=== PATIENT | male | born 1955 | race Caucasian/White ===

== ENCOUNTER 2020-05-09 10:40 | Inpatient (IN) | payer OTHER ==
[2020-05-09 10:49] VITALS: BMI 20.7
--- NOTE | 2020-05-09 11:09 | PDOC ---
Rapid Medical Evaluation Time Seen by Provider: 05/09/20 10:46 Medical Evaluation: Allergies Allergy/AdvReac Type Severity Reaction Status Date / Time No Known Allergies Allergy Verified 05/09/20 10:45 05/09/20 10:48 CC: worsening sob and prod cough, hx lung cancer , + smoker Exam: hypoxic , dyspneic Plan: labs, ekg, cxr, o2 Discharge Disposition - Diagnosis Shortness of breath - Referrals - Patient Instructions - Post Discharge Activity
--- NOTE | 2020-05-09 11:14 | PDOC ---
History of Present Illness - General Chief Complaint: Shortness of Breath Stated Complaint: SOB / COUGH Time Seen by Provider: 05/09/20 10:46 History Source: Patient Exam Limitations: No Limitations - History of Present Illness Initial Comments: 05/09/20 11:14 Harrison Ding is a 65M with PMH lung cancer, HTN, FL s/p 4x stenting on ASA/Brillinta, presenting with 3 days of SOB and cough. Patient diagnosed with lung cancer ~6 years ago, is s/p radiation therapy without chemotherapy. 4 months ago had FL, 4x stented at [facility] and dicharged home on ASA/Brillinta. 4 weeks ago fell from bed and came to ED for forehead lac and eval. Last few days patient has been having increased WOB and non-productive cough, not on home oxygen, breathing has been normal prior to this. Denies fever, chills, ANDREWS, vision changes, chest pain, abdominal pain. Had nausea and vomiting, denies urinary symptoms or diarrhea. NKDA PMH HTN, HLD, lung CA Spokes 2-3 cigarettes per day and quit last month. Denies alcohol/drug use. PMD Kristy Contact: Fatoumata () [phone] Past History - Medical History Allergies/Adverse Reactions: Allergies Allergy/AdvReac Type Severity Reaction Status Date / Time No Known Allergies Allergy Verified 05/09/20 10:45 Cancer: Yes (lung) COPD: No - Psycho-Social/Smoking History Smoking History: Current every day smoker Have you smoked in the past 12 months: Yes Number of Cigarettes Smoked Daily: 5 Information on smoking cessation initiated: Yes - Substance Abuse Hx (Audit-C & DAST Scrn) How often the patient has a drink containing alcohol: Never Score: In Men: 4 or > Positive; In Women: 3 or > Positive: 0 Screen Result (Pos requires Nsg. Audit-10AR): Negative In the last yr the pt used illegal drug/Rx for NonMed reason: No Score: Yes response is considered Positive: 0 Screen Result (Positive result requires Nsg. DAST-10): Negative Review of Systems - Review of Systems Able to Perform ROS?: Yes Constitutional: Yes: Chills, Loss of Appetite. No: Fever HEENTM: No: Eye Pain, Blurred Vision, Nose Pain, Throat Pain, Throat Swelling, Mouth Pain, Dental Problems Respiratory: Yes: Cough, Orthopnea, Shortness of Breath, SOB at Rest, Productive cough. No: SOB with Exertion, Wheezing Cardiac (ROS): No: Chest Pain, Edema, Irregular Heart Rate, Lightheadedness, Palpitations, Chest Tightness ABD/GI: Yes: Nausea, Poor Appetite, Poor Fluid Intake, Vomiting. No: Constipated, Diarrhea, Rectal Bleeding : No: Symptoms Reported Musculoskeletal: No: Symptoms Reported Integumentary: No: Symptoms Reported Neurological: No: Headache, Numbness, Paresthesia, Unsteady Gait Endocrine: No: Symptoms Reported Hematologic/Lymphatic: No: Symptoms Reported All Other Systems: Reviewed and Negative *Physical Exam - Vital Signs Last Vital Signs Temp Pulse Resp BP Pulse Ox 98.9 F 93 H 24 H 150/73 96 05/09/20 10:45 05/09/20 10:45 05/09/20 10:45 05/09/20 10:45 05/09/20 10:45 - Physical Exam General Appearance: Yes: Nourished, Appropriately Dressed, Mild Distress, Thin HEENT: positive: EOMI, [place], Normal Voice, Symmetrical, Pharynx Normal, Hearing Grossly Normal. negative: Scleral Icterus (R), Scleral Icterus (L), Muffled/Radha rse voice, Pharyngeal Erythema, Tonsillar Exudate, Tonsillar Erythema Neck: positive: Trachea midline, Normal Thyroid, Supple. negative: Tender, Rigid, Lymphadenopathy (R), Lymphadenopathy (L), Tender lateral, Tender midline Respiratory/Chest: positive: Normal Breath Sounds, Labored Respiration, Decreased Breath Sounds. negative: Chest Tender, Lungs Clear (decreased breath sounds to RUL and LLL), Respiratory Distress, Accessory Muscle Use, Crackles, Rales, Rhonchi, Wheezing Cardiovascular: positive: Regular Rhythm, Tachycardia Gastrointestinal/Abdominal: positive: Normal Bowel Sounds, Flat, Soft. negative: Tender, Organomegaly, Pulsatile Mass, Guarding, Rebound Musculoskeletal: positive: Normal Inspection. negative: CVA Tenderness, Vertebral Tenderness Extremity: positive: Normal Capillary Refill, Normal Inspection, Normal Range of Motion, Pelvis Stable. negative: Tender, Pedal Edema Integumentary: positive: Normal Color, Dry, Warm. 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 COVID vs. HF vs. lung CA recurrence. Afebrile, normotensive, satting 96% on RA but labored respirations and decreased breath sounds on exam. CXR shows RUL PNA and large pleural effusion to L lung, confirmed by bedside US of lungs. Evaluating broadly with sepsis orders and CT chest non-con for characterization of effusion. COVID-19 testing ordered given SOB and hypoxia. Giving IVF, cefepime, vancomycin, and azithromycin for HCAP and covid-19 coverage. 05/09/20 13:07 BC and lactic acid sent. 05/09/20 13:52 ECG notable for sinus tachycardia and RBBB, Qtc 518, no priors for comparison. Labs notable for: WBC 16.4 D-dimer 2132 lactic 1.8 05/09/20 14:14 CT read shows large L sided pleural effusion and likely cancerous changes to R lung. IR consulted Dr. Martinez, will place pigtail later today. Will admit to tele under Dr. Wagner. 05/09/20 16:56 Discussed case with Gail Gama, accepted to tele under Dr. Wagner. Dr. Wagner in ED, aware of patient. Discharge - Discharge Information Problems reviewed: Yes Clinical Impression/Diagnosis: Shortness of breath, Pleural effusion Pneumonia Qualifiers: Pneumonia type: due to unspecified organism Laterality: right Lung location: upper lobe of lung Qualified Code(s): J18.9 - Pneumonia, unspecified organism Condition: Stable - Admission Yes - Follow up/Referral Referrals: Irvin Wagner MD [Primary Care Provider] - - Patient Discharge Instructions - Post Discharge Activity
[2020-05-09] MEDS ORDERED: SODIUM CHLORIDE 1,701 ML IV ONE (11:30)
[2020-05-09] MEDS ORDERED: CEFEPIME HCL/D5W 2 GM/50 ML BAG IVPB ONE (11:33)
[2020-05-09] MEDS ORDERED: VANCOMYCIN 1 GM in D5W (PRE-DOCKED) 1,000 MG/250 ML IVPB ONE (11:33)
[2020-05-09] MEDS ORDERED: AZITHROMYCIN IVPB 500 MG in DEXTROSE 5%-WATER - 250 ML IVPB ONE (11:35)
[2020-05-09] MEDS ORDERED: AZITHROMYCIN IVPB 500 MG/250 ML BAG IVPB ONE (11:51)
[2020-05-09] MEDS ORDERED: VANCOMYCIN 1 GRAM (PRE-DOCKED) 1,000 MG/250 ML BAG IVPB ONE (11:51)
[2020-05-09] MEDS ORDERED: CEFEPIME 2 GM/100 ML BAG IVPB ONE (11:51)
[2020-05-09 11:53] LABS: BASO % 0.3 % (0-2.0); EOS % 0.1 % (0-4.5); LYMPH % 5.9 % (8-40); MCH 32.8 pg (25.7-33.7); MCHC 33.4 g/dl (32.0-35.9); MEAN CELL VOLUME 98.3 fl (80-96); MONO % 8.7 % (3.8-10.2); PLATELET COUNT 383 K/MM3 (134-434); RBC 4.58 M/mm3 (4.00-5.60); WHITE BLOOD COUNT 16.4 K/mm3 (4.0-10.0)
[2020-05-09 11:55] LABS: INR 1.23 (0.83-1.09); PROTHROMBIN TIME (PATIENT) 14.5 SEC (9.7-13.0)
[2020-05-09 11:57] LABS: ACTIVATED PTT 32.9 SECONDS (25.2-36.5)
[2020-05-09] MEDS: ALBUTEROL SO4 2.5/IPRATROPIUM 0.5 INH SOL 3 ML VIAL.NEB. NEB SCH ×2 (12:04→12:24)
--- NOTE | 2020-05-09 12:09 | PDOC ---
Attending Attestation - Resident Resident Name: GabbyaroldoLei - ED Attending Attestation I have performed the following: I have examined & evaluated the patient, The case was reviewed & discussed with the resident, I agree w/resident's findings & plan - HPI HPI: 05/09/20 12:05 65y/o M h/o COPD, lung ca s/p radiation tx (no chemo), CAD s/p [place] 4mo ago, HTN, quit smoking 1 month ago p/w 3-4 days of progressive cough productive of thick white sputum, progressive and severe SOB with THOMSON just walking around his home. no f/c/night sweats. no chest pain. - Physicial Exam PE: 05/09/20 12:08 afebrile, tachycardia, tachypnea, o2 96% on room air and 99% on 2L alert, thin, tachypneic no jvd heart regular tachy decreased BS L base and mid-lung field with effusion on POCUS. distant breath sounds R mid lung field abd benign no edema/calf ttp neuro nl - Critical Care Time Total Critical Care Time: 40 Critical Care Statement: The care of this patient involved high complexity decision making to prevent further life threatening deterioration of the patient's condition and/or to evaluate & treat vital organ system(s) failure or risk of failure. - Medical Decision Making 05/09/20 12:09 65y/o M HTN/CAD, COPD, lung ca with progressive cough for 4d, tachypnea/tachycardia here with progressive SOB/THOMSON. concern for infectious etiology, also high risk for PE. sepsis protocol initiated ekg, cxr, cta chest iv fluids, iv abx admit 05/09/20 14:14 labs with leukocytosis, lactate normal cxr and ct chest confirm large L effusion. improved respiratory status on 2L, still slight tachypnea. admit to tele, IR consulted for drain. Heart Score/ECG Review #1 ECG reviewed & interpreted by me at: 13:47 General ECG Interpretation: Sinus Rhythm (tachy at 112), Normal Intervals (RBBB wth qrs 138, qtc 518), No acute ischemic changes Discharge - Discharge Information Problems reviewed: Yes Clinical Impression/Diagnosis: Shortness of breath, Pleural effusion Pneumonia Qualifiers: Pneumonia type: due to unspecified organism Laterality: right Lung location: upper lobe of lung Qualified Code(s): J18.9 - Pneumonia, unspecified organism Condition: Stable - Follow up/Referral Referrals: Irvin Wagner MD [Primary Care Provider] - - Patient Discharge Instructions - Post Discharge Activity
[2020-05-09] MEDS ORDERED: ALBUTEROL SO4 2.5/IPRATROPIUM 0.5 INH SOL 3 ML VIAL.NEB. NEB ONE (12:18)
[2020-05-09 12:29] LABS: ALBUMIN 3.2 g/dl (3.4-5.0); ALK PHOS 136 U/L (45-117); ANION GAP 8 MMOL/L (8-16); BILIRUBIN,TOTAL 1.2 mg/dL (0.2-1); BLOOD UREA NITROGEN 11.2 mg/dL (7-18); CALCIUM 9.2 mg/dL (8.5-10.1); CHLORIDE 101 mmol/L (98-107); CO2 26 mmol/L (21-32); CREATININE 1.1 mg/dL (0.55-1.3); GLUCOSE,RANDOM 129 mg/dL (74-106); MAGNESIUM 2.2 mg/dL (1.8-2.4); SGOT/AST 39 U/L (15-37); SODIUM 135 mmol/L (136-145); TOT PROT 8.4 g/dl (6.4-8.2)
[2020-05-09 12:32] LABS: SGPT/ALT 34 U/L (13-61)
[2020-05-09 15:53] LABS: EPI CELLS 6 /uL (0-25.1); HYALINE CASTS 1 /uL (0-3.1); URINE APPEARANCE CLEAR; URINE BACTERIA 25 /uL (0-1359); URINE BILIRUBIN NEGATIVE (NEGATIVE); URINE COLOR DK YELLOW; URINE GLUCOSE (UA) NEGATIVE (NEGATIVE); URINE KETONE NEGATIVE (NEGATIVE); URINE LEUK ESTERASE TRACE (NEGATIVE); URINE NITRITE NEGATIVE (NEGATIVE); URINE PROTEIN TRACE (NEGATIVE); URINE RBC 6 /uL (0-23.9); URINE WBC 19 /uL (0-25.8)
[2020-05-09] MEDS ORDERED: FUROSEMIDE 40 MG/4 ML INJECTABLE VIAL IVPUSH ONE (17:49)
--- NOTE | 2020-05-09 17:51 | HP ---
Admitting History and Physical - Primary Care Physician PCP: Irvin Wagner - Admission Chief Complaint: SOB History of Present Illness: Harrison Ding is a 65M with PMH lung cancer, HTN, [place] s/p 4x stenting on ASA/Brillinta, presenting with 3 days of SOB and cough. Patient diagnosed with lung cancer ~6 years ago, is s/p radiation therapy without chemotherapy. 4 months ago had AL, 4x stented at [facility] and dicharged home on ASA/Brillinta. 4 weeks ago fell from bed and came to ED for forehead lac and eval. Last few days patient has been having increased WOB and non-productive cough, not on home oxygen, breathing has been normal prior to this. Denies fever, chills, ANDREWS, vision changes, chest pain, abdominal pain. Had nausea and vomiting, denies urinary symptoms or diarrhea. History Source: Patient, Medical Record Limitations to Obtaining History: No Limitations - Smoking History Smoking history: Current every day smoker Have you smoked in the past 12 months: Yes Aproximately how many cigarettes per day: 5 Home Medications - Allergies Allergies/Adverse Reactions: Allergies Allergy/AdvReac Type Severity Reaction Status Date / Time No Known Allergies Allergy Verified 05/09/20 10:45 Review of Systems - Review of Systems Constitutional: reports: Weakness Eyes: reports: No Symptoms HENT: reports: No Symptoms Neck: reports: No Symptoms Cardiovascular: reports: Shortness of Breath Respiratory: reports: SOB Gastrointestinal: reports: No Symptoms Genitourinary: reports: No Symptoms Breasts: reports: No Symptoms Reported Musculoskeletal: reports: No Symptoms Integumentary: reports: No Symptoms Neurological: reports: No Symptoms Endocrine: reports: No Symptoms Hematology/Lymphatic: reports: No Symptoms Psychiatric: reports: No Symptoms Physical Examination Vital Signs: Vital Signs Temperature 99.1 F 05/09/20 11:30 Pulse Rate 103 H 05/09/20 16:00 Respiratory Rate 31 H 05/09/20 16:00 Blood Pressure 122/77 05/09/20 16:00 O2 Sat by Pulse Oximetry (%) 95 05/09/20 16:00 Constitutional: Yes: Calm, Cachectic, Mild Distress (SOB) Cardiovascular: Yes: Tachycardia Respiratory: Yes: Diminished (LL), On Nasal O2, Tachypnea Gastrointestinal: Yes: Normal Bowel Sounds, Soft Renal/: Yes: WNL Musculoskeletal: Yes: Muscle Weakness Extremities: Yes: WNL Edema: No Peripheral Pulses WNL: Yes Neurological: Yes: Alert, Oriented Psychiatric: Yes: Alert, Oriented Labs: CBC, BMP 05/09/20 11:10 05/09/20 10:58 Imaging - Results Chest X-ray: Report Reviewed Cat Scan: Report Reviewed Problem List - Problems (1) Pleural effusion Assessment/Plan: -Furosemide 40 mg IVP once -IR consult for pleurx -Pulmonary and cardiology consult -O2 to keep SpO2>90% Problems reviewed: Yes Code(s): J90 - PLEURAL EFFUSION, NOT ELSEWHERE CLASSIFIED (2) Pneumonia Code(s): J18.9 - PNEUMONIA, UNSPECIFIED ORGANISM Qualifiers: Pneumonia type: due to unspecified organism Laterality: right Lung location: upper lobe of lung Qualified Code(s): J18.9 - Pneumonia, unspecified organism (3) Shortness of breath Problems reviewed: Yes Code(s): R06.02 - SHORTNESS OF BREATH (4) CAD (coronary artery disease) Assessment/Plan: -Resume Brilinta -Resume statin -Cardiology consult Problems reviewed: Yes Code(s): I25.10 - ATHSCL HEART DISEASE OF [place] CORONARY ARTERY W/O ANG PCTRS (5) History of lung cancer Assessment/Plan: -CT chest reviewed -Scarring vs mass in the hilum Problems reviewed: Yes Code(s): Z85.118 - PERSONAL HISTORY OF MALIGNANT NEOPLASM OF BRONCHUS AND LUNG
[2020-05-09 19:19] LABS: BF WBC & OTHER NUCLEATED CELLS 521 /mm3
[2020-05-09 20:10] LABS: BODY FLUID MACROPHAGES 21 %; BODYL FLD EOSINOPHIL 5 %
[2020-05-09] MEDS: TICAGRELOR 90 MG TABLET PO SCH (22:32)
[2020-05-10 06:18] LABS: BASO % 0.7 % (0-2.0); EOS % 0.9 % (0-4.5); HEMATOCRIT 39.3 % (35.4-49); HEMOGLOBIN 13.3 GM/dL (11.7-16.9); LYMPH % 14.1 % (8-40); MCHC 33.9 g/dl (32.0-35.9); MEAN CELL VOLUME 97.3 fl (80-96); MEAN PLT VOLUME 7.7 fl (7.5-11.1); MONO % 11.6 % (3.8-10.2); NEUT % 72.7 % (42.8-82.8); PLATELET COUNT 321 K/MM3 (134-434); RBC 4.04 M/mm3 (4.00-5.60); RDW 12.9 % (11.9-15.9); WHITE BLOOD COUNT 13.9 K/mm3 (4.0-10.0)
[2020-05-10] MEDS ORDERED: ALBUTEROL SO4 HFA INHALER IH PRN (06:20)
[2020-05-10 06:41] LABS: ALBUMIN 2.5 g/dl (3.4-5.0); BILIRUBIN,TOTAL 1.2 mg/dL (0.2-1); BLOOD UREA NITROGEN 10.6 mg/dL (7-18); CALCIUM 8.7 mg/dL (8.5-10.1); POTASSIUM 4.5 mmol/L (3.5-5.1); TOT PROT 6.6 g/dl (6.4-8.2)
--- NOTE | 2020-05-10 09:13 | CON.CARD ---
Consult Consult Specialty:: Cardiology Referred by:: Kristy Reason for Consultation:: SOB, effusion - History of Present Illness Chief Complaint: SOB History of Present Illness: 65 year old male with a PMH of COPD smoker, lung cancer s/p radiation 2 years ago, PVD, CAD admitted to [facility] on 10/17/19 for inferior STEMI, under wentPCI w/RANJIT x2 placed in RCA and 11/12/19 for staged PCI for the mid-LAD. He now presents with 3 days of SOB, cough without fever or chills. No chest pain, orthopnea, PND or edema. CT scan done in the ER showed a large left pleural effusion. Underwent thoracentesis. Echo 11/16/19 Regional wall motion abnormalities as described below with overall mildly reduced left ventricular systolic function. Normal right ventricular function. Left Atrium: Normal left atrial size. Left Ventricle: Normal left ventricular size. Inferolateral wall akinesis. Basal inferior wall akinesis. Mildly decreased left ventricular ejection fraction. Right Atrium: Normal right atrial size. Right Ventricle: Normal right ventricular size. Normal right ventricular function. Aortic Valve: Fibrocalcific disease of the aortic valve without stenosis. Mild aortic valve regurgitation. Mitral Valve: Mitral annular calcification. Mild mitral valve regurgitation. Tricuspid Valve: Normal tricuspid valve. Pulmonic Valve: Pulmonic valve not adequately visualized. Arteries: Normal sized aortic root. Pericardium/Pleura: Minimal pericardial effusion. Hemodynamics: Doppler pattern suggests prolonged relaxation and normal left atrial pressure (8 - 14mmHg). Estimated right atrial pressure is Normal (0-5 mmHg). Insufficient tricuspid regurgitation to quantify pulmonary artery pressure. MD Estimated Parameters Ejection Fraction: 45.0 % NST 08/26/19: Normal stress test Normal LVEF No ischemic changes [place] Min 66 max 162 HR 89\IVCD 1run of Vtach Ectopic atrial rhythm Rare PACs - History Source History Provided By: Patient, Medical Record - Smoking History Smoking history: Current every day smoker Have you smoked in the past 12 months: Yes Aproximately how many cigarettes per day: 5 Home Medications - Allergies Allergies/Adverse Reactions: Allergies Allergy/AdvReac Type Severity Reaction Status Date / Time No Known Allergies Allergy Verified 05/10/20 09:01 - Home Medications Home Medications: Ambulatory Orders Albuterol Sulfate Inhaler - [Ventolin HFA Inhaler -] 1 puff PO PRN 05/09/20 Aspirin [ASA -] 81 mg PO DAILY 05/09/20 Atorvastatin Ca [Lipitor] 80 mg PO HS 05/09/20 Metoprolol Succinate 50 mg PO DAILY 05/09/20 Ticagrelor [Brilinta] 60 mg PO DAILY 05/09/20 Vital Signs: Vital Signs Temperature 97.2 F L 05/10/20 05:00 Pulse Rate 100 H 05/10/20 05:00 Respiratory Rate 20 05/10/20 05:00 Blood Pressure 100/60 05/10/20 05:00 O2 Sat by Pulse Oximetry (%) 99 05/09/20 21:00 Constitutional: Yes: No Distress, Calm Eyes: Yes: Conjunctiva Clear, EOM Intact HENT: Yes: Atraumatic, Normocephalic Neck: Yes: Trachea Midline Respiratory: Yes: Diminished (left side), Dullness (left side) Gastrointestinal: Yes: Normal Bowel Sounds, Soft Cardiovascular: Yes: Regular Rate and Rhythm JVD: Yes Carotid Bruit: No PMI: Non-Displaced Heart Sounds: Yes: S1, S2 Musculoskeletal: Yes: WNL Extremities: Yes: WNL Edema: No Peripheral Pulses WNL: Yes - Other Data Labs, Other Data: CBC, BMP 05/10/20 05:50 05/10/20 06:00 INR, PTT INR 1.23 (0.83-1.09) H 05/09/20 11:10 Troponin, BNP 05/09/20 10:58 Troponin I < 0.02 Troponin, BNP 05/09/20 10:58 Troponin I < 0.02 Imaging - Results X-ray: Report Reviewed Cat Scan: Report Reviewed EKG: Report Reviewed Assessment/Plan 65 year old male with a PMH of COPD smoker, lung cancer s/p radiation 2 years ago, PVD, CAD admitted to [facility] on 10/17/19 for inferior STEMI, underwentPCI w/RANJIT x2 placed in RCA and 11/12/19 for staged PCI for the mid-LAD. He now presents with 3 days of SOB, cough without fever or chills. No chest pain, orthopnea, PND or edema. CT scan done in the ER showed a large left pleural effusion. Underwent thoracentesis. Plan: -left sided effusion is suspicious for malignancy, follow results of thoracentesis. -pulmonary evaluation -echo, will adjust medications accordingly. -check BNP -elevated WBC and D-dimer concerning for COVID, swab pending. -continue asa and brilinta for one year. Continue beta stephanie and statin. Will add acei if bp tolerates. Has not tolerated lisinopril in the past, and his bp is soft at present.
[2020-05-10] MEDS ORDERED: PT OWN MED DRAWER 7, Y5N ONE ×2 (09:24→21:11)
[2020-05-10] MEDS: TICAGRELOR 90 MG TABLET PO SCH ×2 (09:31→21:13)
[2020-05-10] MEDS: ASPIRIN COATED 81 MG TABLET.EC PO SCH (09:31)
--- NOTE | 2020-05-10 09:49 | PN ---
Progress Note, Physician - Current Medication List Current Medications: Active Medications Acetaminophen (Tylenol -) 650 mg PO Q4H PRN PRN Reason: PAIN Albuterol Sulfate (Ventolin Hfa Inhaler -) 1 puff IH Q4H PRN PRN Reason: SHORT OF BREATH/WHEEZING Aspirin (Ecotrin -) 81 mg PO DAILY [facility] Last Admin: 05/10/20 09:31 Dose: 81 mg Documented by: Atorvastatin Calcium (Lipitor -) 80 mg PO [facility] Metoprolol Succinate (Toprol Xl -) 50 mg PO DAILY [facility] Last Admin: 05/10/20 09:31 Dose: 50 mg Documented by: Ticagrelor (Brilinta -) 90 mg PO BID [facility] Last Admin: 05/10/20 09:31 Dose: 90 mg Documented by: - Objective Vital Signs: Vital Signs Temperature 98.9 F 05/10/20 09:41 Pulse Rate 99 H 05/10/20 09:41 Respiratory Rate 20 05/10/20 09:41 Blood Pressure 103/62 05/10/20 09:41 O2 Sat by Pulse Oximetry (%) 99 05/09/20 21:00 Cardiovascular: Yes: S1, S2 Respiratory: Yes: Diminished, On Nasal O2, Rhonchi Gastrointestinal: Yes: Normal Bowel Sounds, Soft Edema: No Labs: CBC, BMP 05/10/20 05:50 05/10/20 06:00 INR, PTT INR 1.23 (0.83-1.09) H 05/09/20 11:10 Assessment/Plan Problems (1) Pleural effusion Assessment/Plan: -Furosemide 40 mg IVP once -IR consult for pleurx--Placed -Maybe malignant -await results -Pulmonary and cardiology consult appreciated -O2 to keep SpO2>90% Problems reviewed: Yes Code(s): J90 - PLEURAL EFFUSION, NOT ELSEWHERE CLASSIFIED (2) Pneumonia -Abx -ID consult Code(s): J18.9 - PNEUMONIA, UNSPECIFIED ORGANISM Qualifiers: Pneumonia type: due to unspecified organism Laterality: right Lung location: upper lobe of lung Qualified Code(s): J18.9 - Pneumonia, unspecified organism (3) Shortness of breath Problems reviewed: Yes Code(s): R06.02 - SHORTNESS OF BREATH (4) CAD (coronary artery disease) Assessment/Plan: -Resume Brilinta -Resume statin -Cardiology consult Problems reviewed: Yes Code(s): I25.10 - ATHSCL HEART DISEASE OF [place] CORONARY ARTERY W/O ANG PCTRS (5) History of lung cancer Assessment/Plan: -CT chest reviewed -Scarring vs mass in the hilum Problems reviewed: Yes Code(s): Z85.118 - PERSONAL HISTORY OF MALIGNANT NEOPLASM OF BRONCHUS AND LUNG
--- NOTE | 2020-05-10 10:38 | EKG ---
Test Reason : Blood Pressure : / mmHG Vent. Rate : 112 BPM Atrial Rate : 112 BPM P-R Int : 134 ms QRS Dur : 138 ms QT Int : 380 ms P-R-T Axes : 021 049 004 degrees QTc Int : 518 ms SINUS TACHYCARDIA RIGHT BUNDLE BRANCH BLOCK POSSIBLE INFERIOR INFARCT , AGE UNDETERMINED ABNORMAL ECG NO PREVIOUS ECGS AVAILABLE Confirmed by Simon Small MD ([id number]) on 05/10/2020 10:37:15 AM Referred By: Confirmed By:Simon Small MD
--- NOTE | 2020-05-10 12:26 | PN ---
Progress Note (short form) - Note Progress Note: PULMONARY CONSULTATION DICTATED 05/10/20 IMP DYSPNEA/HYPOXEMIA LARGE LEFT PLEURAL EFFUSION R/O MALIGNANT H/O LUNG CA S/P RT RUL INFILTRATE ? PNEUMONIA,? COVID COPD ASHD S/P STENTS MEDIASTINAL ADENOPATHY PLAN SUPPLEMENTAL O2 ABX INHALED BRONCHODILATORS MONITOR CHEST TUBE DRAINAGE CHECK PLEURAL FLUID CHEMISTRIES,CYTOLOGY,CULTURES COVID PCR PENDING DR CASTRO Problem List - Problems (1) COPD (chronic obstructive pulmonary disease) Code(s): J44.9 - CHRONIC OBSTRUCTIVE PULMONARY DISEASE, UNSPECIFIED (2) CAD (coronary artery disease) Code(s): I25.10 - ATHSCL HEART DISEASE OF [place] CORONARY ARTERY W/O ANG PCTRS (3) History of lung cancer Code(s): Z85.118 - PERSONAL HISTORY OF MALIGNANT NEOPLASM OF BRONCHUS AND LUNG (4) Pleural effusion Code(s): J90 - PLEURAL EFFUSION, NOT ELSEWHERE CLASSIFIED (5) Pneumonia Code(s): J18.9 - PNEUMONIA, UNSPECIFIED ORGANISM Qualifiers: Pneumonia type: due to unspecified organism Laterality: right Lung location: upper lobe of lung Qualified Code(s): J18.9 - Pneumonia, unspecified organism (6) Shortness of breath Code(s): R06.02 - SHORTNESS OF BREATH
--- NOTE | 2020-05-10 13:14 | PN ---
Progress Note (short form) - Note Progress Note: ID consult dictated imp/reccd 65 yo man with history of lung cancer s/p RT (right lung) 6 years ago, recent AR in 10/2019-s/p 4 stents, history of COPD developed vomiting and diarrhea about a week ago, self resolved then developed worsening SOB and worsening cough now with large left pleural effusion- s/p chest tube placement yesterday and RUL infiltrate (new) no fevers s/p vanco/cefepime/zith in ED yesterday +10 pound weight loss RUL infiltrate -?aspiration left pleural effusion- s/p chest tube, ?malignant recent AR with stents prolonged qtc- greater then .5 check cultures, add urinary antigens zosyn to cover for possible aspiration pleural fluid cultures and cytology covid pcr pending patient reports difficulty swallowing- consider swallowing evaluation Problem List - Problems (1) Pneumonia Code(s): J18.9 - PNEUMONIA, UNSPECIFIED ORGANISM Qualifiers: Pneumonia type: due to unspecified organism Laterality: right Lung location: upper lobe of lung Qualified Code(s): J18.9 - Pneumonia, unspecified organism (2) Pleural effusion Code(s): J90 - PLEURAL EFFUSION, NOT ELSEWHERE CLASSIFIED (3) CAD (coronary artery disease) Code(s): I25.10 - ATHSCL HEART DISEASE OF [place] CORONARY ARTERY W/O ANG PCTRS (4) COPD (chronic obstructive pulmonary disease) Code(s): J44.9 - CHRONIC OBSTRUCTIVE PULMONARY DISEASE, UNSPECIFIED (5) History of lung cancer Code(s): Z85.118 - PERSONAL HISTORY OF MALIGNANT NEOPLASM OF BRONCHUS AND LUNG
--- NOTE | 2020-05-10 13:48 | ECHO ---
Name: GIANA, KAHLIL Exam:Adult Echocardiogram Study Date: 05/10/2020 11:07 AM Age: 65 yrs Reason For Study: Arrhythmia Height: 65 in Weight: 125 lb BSA: 1.6 m2 MMode/2D Measurements & Calculations RVDd: 3.2 cm Ao root diam: 3.6 cm IVSd: 0.81 cm LA dimension: 2.5 cm LVIDd: 4.7 cm ACS: 1.4 cm LVIDs: 3.8 cm LVPWd: 0.82 cm EDV(Teich): 103.4 ml LVOT diam: 1.9 cm ESV(Teich): 61.1 ml LVLd ap4: 7.7 cm SV(MOD-sp4): 58.0 ml EDV(MOD-sp4): 118.0 ml LVLs ap4: 6.5 cm ESV(MOD-sp4): 60.0 ml LAV (MOD-bp): 54.0 ml TAPSE: 1.7 cm RV S Dagoberto: 10.9 cm/sec Doppler Measurements & Calculations MV E max dagoberto: 77.9 cm/sec Ao V2 max: 177.8 cm/sec MV A max dagoberto: 115.2 cm/sec Ao max P.6 mmHg MV E/A: 0.68 Ao V2 mean: 125.4 cm/sec MV dec time: 0.17 sec Ao mean P.0 mmHg Ao V2 VTI: 27.4 cm ELISHA(I,D): 2.5 cm2 AI P1/2t: 405.1 msec ELISHA(V,D): 2.0 cm2 AI max dagoberto: 330.1 cm/sec LV V1 max P.5 mmHg AI max P.6 mmHg LV V1 mean P.0 mmHg AI dec slope: 238.6 cm/sec2 LV V1 max: 117.4 cm/sec LV V1 mean: 81.3 cm/sec LV V1 VTI: 23.2 cm SV(LVOT): 68.6 ml PA V2 max: 80.1 cm/sec PA max P.6 mmHg PA acc slope: 901.2 cm/sec2 PA acc time: 0.07 sec Med Peak E' Dagoberto: 4.6 cm/sec PA pr(Accel): 45.7 mmHg Med E/e': 17.0 Lat Peak E' Dagoberto: 6.1 cm/sec Lat E/e': 12.7 Tech Comments TDS. Patient very thin and scanned sitting up. Procedure A complete two-dimensional transthoracic echocardiogram was performed (2D, M-mode, Doppler and color flow Doppler). The patient was in normal sinus rhythm during the exam. Left Ventricle The left ventricle is normal in size. Left ventricular systolic function is mildly reduced. Ejection Fraction = 45%. E/A reversal consistent with but not diagnostic of poor LV compliance. There is inferior wall akinesis. Right Ventricle The right ventricle is normal in size and function. Atria Normal left and right atrial size and function. Mitral Valve There is mild mitral annular calcification. There is mild mitral regurgitation. Tricuspid Valve The tricuspid valve is normal in structure and function. There is Trace to mild tricuspid regurgitati on. There was insufficient TR detected to calculate RV systolic pressure. Aortic Valve There is mild aortic valve thickening. Moderate aortic regurgitation. Pulmonic Valve The pulmonic valve is normal in structure and function. Great Vessels The aortic root is normal size. Pericardium/Pleura There is no pericardial effusion. There is no pleural effusion. Interpretation Summary The left ventricle is normal in size. There is inferior wall akinesis. Left ventricular systolic function is mildly reduced. Ejection Fraction = 45%. There is mild mitral annular calcification. There is mild mitral regurgitation. There is Trace to mild tricuspid regurgitation. There is mild aortic valve thickening. Moderate aortic regurgitation. MD Simon Small 05/10/2020 01:47 PM
--- NOTE | 2020-05-10 13:58 | CONS ---
DATE OF CONSULTATION: 05/10/2020 REFERRING PHYSICIAN: Johana Navarrete MD HISTORY: The patient is a 65-year-old male with past medical history of lung cancer status post RT 6 years ago, never treated with chemo or surgery; ASHD status post [place] 4 months ago; status post stents x4 at [facility], discharged on aspirin and Brilinta; peripheral vascular disease; COPD; longstanding history of tobacco use, quit approximately 1 month ago, admitted to [facility] with 4-day history of increasing shortness of breath. Patient apparently 4 weeks ago fell from his bed, and he came into the emergency room for a forehead laceration, evaluation, and discharged home in stable condition. Apparently for the past few days he has increasing shortness of breath, nonproductive cough, and dyspnea at rest. He denies any fevers or chills, no hemoptysis. Patient presented in the emergency room with the above. In the ER he was noted on CAT scan to have a large left pleural effusion, right upper lobe ground-glass infiltrate. Chest tube was inserted by Interventional Radiology, and patient was transferred to medical floor for further management. Patient denies any weight loss, denies sweats, denies any hemoptysis, denies any chest pains or palpitations. PAST MEDICAL HISTORY: Again includes COPD, history of lung cancer status post RT; ASHD, status post [place], status post stents x4; peripheral vascular disease. SOCIAL HISTORY: History of tobacco use, quit a month ago. No occupational exposures. MEDICATIONS: Current medications include Tylenol, albuterol, Toprol, Lipitor, Ecotrin, Brilinta. REVIEW OF SYSTEMS: Positive dyspnea, positive cough. No chest pain, no palpitation. No fever, no chills. No hemoptysis. PHYSICAL EXAMINATION: General: The patient is a thin male, awake, alert, in no acute distress. Vital Signs: He is currently afebrile. Blood pressure is 103/62. Respiratory rate is 20. O2 saturation is 99% on 3 L nasal cannula. HEENT: Normocephalic, atraumatic. Neck: Supple. Heart: Regular, S1, S2. Chest: A few scattered rhonchi, right greater than left. Abdomen: Soft. Bowel sounds are positive. Extremities: No cyanosis, edema. LABORATORY: WBC is 13.9, hemoglobin 15.3, hematocrit 39.3, and a platelet count of 321,000. BUN is 10, creatinine 1.0. Troponin less than 0.2. Albumin 2.5. D- dimer is 2132, which is nonspecific. Chest CT again noted earlier a large left pleural effusion, pretracheal adenopathy. There is a consolidation of right upper lobe with associated air bronchograms. IMPRESSION: Dyspnea, hypoxemia secondary to multiple factors: 1. Large left pleural effusion, likely malignant. 2. History of lung cancer status post radiation therapy. 3. Right upper lobe infiltrate, questionable community-acquired pneumonia, questionable COVID. 4. Chronic obstructive pulmonary disease. 5. Arteriosclerotic heart disease status post myocardial infarction, status post stents. 6. Mediastinal adenopathy, malignant versus reactive. PLAN: Supplemental O2, antibiotic therapy, inhaled bronchodilators, monitor chest tube drainage, check pleural fluid chemistries, cytology of the cultures. COVID PCR pending. Further recommendations pending results of pleural fluid studies. VALERIANO CASTRO M.D. [id number] [email or web address]
[2020-05-10] MEDS ORDERED: DEXTROSE 5%-WATER - 50 ML IVPB ONE ×2 (14:35→17:27)
[2020-05-10] MEDS ORDERED: PIPERACILLIN/TAZOBACTAM 3.375 GM VIAL IVPB ONE ×2 (14:35→17:27)
[2020-05-10] MEDS: PIPERACILLIN/TAZOB 3.375 GM 3.375 GM in DEXTROSE 5%-WATER - 50 ML IVPB SCH ×2 (14:43→17:36)
--- NOTE | 2020-05-10 15:39 | CONS ---
DATE OF CONSULTATION: DATE OF DICTATION: 05/10/2020 HISTORY: This is a 65-year-old man with a history of lung cancer. This was diagnosed about 6 years ago. At that time he reports he had radiation to his right lung. Most recently, he reports in October he had a heart attack. He had an AR. He was hospitalized at [facility] and ultimately had 4 stents placed. He reports around April 15 he fell out of bed, sustained a laceration that would not stop bleeding as he is on aspirin and Brilinta. He was seen at [facility] and had to have the forehead wound sutured. This last week, he noted that he had worsening cough and worsening shortness of breath. Every time he coughed, he could not catch his breath. He has had no fevers. It has been a dry cough. He has not been able to eat. He has lost 10 pounds. He had vomiting, he says, with nausea and diarrhea about a week ago that stopped. He came to the ER with these complaints. He was found to have a large left pleural effusion and a right upper lobe consolidation, and he had IR placement of a chest tube, and he is draining a large amount of pleural fluid from his left lung. He reports feeling better. During my entire interview with him, and exam, he never coughed. PAST MEDICAL HISTORY: Notable for the lung cancer. He has a history of hypertension and coronary artery disease status post recent AR. SOCIAL HISTORY: He is an active smoker. He stopped smoking 2 weeks ago. He lives with his . He is originally from [place]. 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 He has 6 children. PAST SURGICAL HISTORY: He denies any surgery. ALLERGIES: He has no known drug allergies. He has not been hospitalized since the stents were placed. REVIEW OF SYSTEMS: There is no history of any tuberculosis. His nausea, vomiting, and diarrhea have resolved. He reports no COVID contacts, and he has had no fever. PHYSICAL EXAMINATION: General: He is a thin in no acute distress. Vital Signs: His temperature is 98.9. Pulse is 99, blood pressure 103/62. Respiratory rate is 20. He is saturating 99%. HEENT: He is normocephalic. His eyes are anicteric. He has no thrush, but very poor dentition. Respiratory: His lungs have diminished breath sounds at the left base. His chest tube is draining bloody serous fluid. There is no evidence of any pus in the chest tube. Abdomen: Soft, nontender. Extremities: Without edema. LABORATORY: White count on admission was 16.4. Repeat is 13.9. Hemoglobin 13.3. Platelets are 321. His D-dimer was 2132. BUN and creatinine are normal. He has a total bilirubin of 1.2 with AST of 39, alkaline phosphatase of 111. Albumin is 2.5. Urinalysis is negative. Pleural fluid has 521 white cells, 28% polys, 46% lymphocytes, and COVID PCR is pending. Blood cultures are pending. Urine culture is negative. Pleural fluid cultures are pending. Preliminary on the Gram stain is unremarkable. He had a CT of his chest that confirms the large left pleural effusion, and there is an area of scarring at the right hilum, and there is emphysema, and he has this consolidation of his right upper lobe with an associated air bronchogram. SUMMARY: This is a 65-year-old man with history of lung cancer, who now has a right upper lobe infiltrate in the setting of vomiting, suspect aspiration. He has a left pleural effusion status post chest tube, concern for malignancy. Recent AR with stents, on Brilinta and aspirin. Prolonged QTc which is greater than 0.5. He received vancomycin, cefepime, and Zithromax in the ER. I would check his cultures, add urinary antigens. Would hold further Zithromax given the prolonged QTc and the clinical improvement. Would treat him with Zosyn to cover for possible aspiration. Pleural fluid cultures and cytology, COVID PCR which is pending. Further recommendations to follow. DEACON TODD M.D. [id number]
[2020-05-10] MEDS: ATORVASTATIN CA 80 MG TABLET (FP) PO SCH (21:13)
[2020-05-11] MEDS ORDERED: PIPERACILLIN/TAZOBACTAM 3.375 GM VIAL IVPB ONE ×3 (01:21→16:57)
[2020-05-11] MEDS ORDERED: DEXTROSE 5%-WATER - 50 ML IVPB ONE ×3 (01:22→16:57)
[2020-05-11] MEDS: PIPERACILLIN/TAZOB 3.375 GM 3.375 GM in DEXTROSE 5%-WATER - 50 ML IVPB SCH ×3 (01:24→17:21)
--- NOTE | 2020-05-11 07:25 | PN ---
Progress Note, Physician History of Present Illness: pulmonary alert,feeling better,less dyspneic,chest tube drainage 150cc - Current Medication List Current Medications: Active Medications Acetaminophen (Tylenol -) 650 mg PO Q4H PRN PRN Reason: PAIN Albuterol Sulfate (Ventolin Hfa Inhaler -) 1 puff IH Q4H PRN PRN Reason: SHORT OF BREATH/WHEEZING Aspirin (Ecotrin -) 81 mg PO DAILY [facility] Last Admin: 05/10/20 09:31 Dose: 81 mg Documented by: Atorvastatin Calcium (Lipitor -) 80 mg PO HS [facility] Last Admin: 05/10/20 21:13 Dose: 80 mg Documented by: Piperacillin Sod/Tazobactam (Sod 3.375 gm/ Dextrose) 50 mls @ 100 mls/hr IVPB Q8H-IV [facility]; Protocol Last Admin: 05/11/20 01:24 Dose: 100 mls/hr Documented by: Metoprolol Succinate (Toprol Xl -) 50 mg PO DAILY [facility] Last Admin: 05/10/20 09:31 Dose: 50 mg Documented by: Ticagrelor (Brilinta -) 90 mg PO BID [facility] Last Admin: 05/10/20 21:13 Dose: 90 mg Documented by: - Objective Vital Signs: Vital Signs Temperature 97.7 F 05/11/20 05:49 Pulse Rate 94 H 05/11/20 05:49 Respiratory Rate 18 05/11/20 05:49 Blood Pressure 105/57 L 05/11/20 05:49 O2 Sat by Pulse Oximetry (%) 96 05/10/20 21:00 Constitutional: Yes: Calm, Thin Eyes: Yes: WNL HENT: Yes: WNL Neck: Yes: WNL, Lymphadenopathy Cardiovascular: Yes: Pulse Irregular, S1 Respiratory: Yes: Rales, Rhonchi (few crackles and rhonchi on r,diminished bs on left) Gastrointestinal: Yes: Normal Bowel Sounds, Soft Extremities: Yes: WNL Edema: No Labs: Problem List - Problems (1) COPD (chronic obstructive pulmonary disease) Code(s): J44.9 - CHRONIC OBSTRUCTIVE PULMONARY DISEASE, UNSPECIFIED (2) CAD (coronary artery disease) Code(s): I25.10 - ATHSCL HEART DISEASE OF [place] CORONARY ARTERY W/O ANG PCTRS (3) History of lung cancer Code(s): Z85.118 - PERSONAL HISTORY OF MALIGNANT NEOPLASM OF BRONCHUS AND LUNG (4) Pleural effusion Code(s): J90 - PLEURAL EFFUSION, NOT ELSEWHERE CLASSIFIED (5) Pneumonia Code(s): J18.9 - PNEUMONIA, UNSPECIFIED ORGANISM Qualifiers: Pneumonia type: due to unspecified organism Laterality: right Lung location: upper lobe of lung Qualified Code(s): J18.9 - Pneumonia, unspecified organism (6) Shortness of breath Code(s): R06.02 - SHORTNESS OF BREATH Assessment/Plan IMP DYSPNEA/HYPOXEMIA LARGE LEFT PLEURAL EFFUSION R/O MALIGNANT H/O LUNG CA S/P RT RUL INFILTRATE ? PNEUMONIA, COPD ASHD S/P STENTS MEDIASTINAL ADENOPATHY PLAN SUPPLEMENTAL O2 ABX PER ID INHALED BRONCHODILATORS MONITOR CHEST TUBE DRAINAGE CHECK PLEURAL FLUID CHEMISTRIES,CYTOLOGY,CULTURES pending COVID PCR NEGATIVE DR CASTRO Problem List - Problems (1) COPD (chronic obstructive pulmonary disease) Code(s): J44.9 - CHRONIC OBSTRUCTIVE PULMONARY DISEASE, UNSPECIFIED (2) CAD (coronary artery disease) Code(s): I25.10 - ATHSCL HEART DISEASE OF [place] CORONARY ARTERY W/O ANG PCTRS (3) History of lung cancer Code(s): Z85.118 - PERSONAL HISTORY OF MALIGNANT NEOPLASM OF BRONCHUS AND LUNG (4) Pleural effusion Code(s): J90 - PLEURAL EFFUSION, NOT ELSEWHERE CLASSIFIED (5) Pneumonia Code(s): J18.9 - PNEUMONIA, UNSPECIFIED ORGANISM Qualifiers: Pneumonia type: due to unspecified organism Laterality: right Lung location: upper lobe of lung Qualified Code(s): J18.9 - Pneumonia, unspecified organism (6) Shortness of breath Code(s): R06.02 - SHORTNESS OF BREATH p
--- NOTE | 2020-05-11 08:37 | PN ---
Progress Note, Physician - Current Medication List Current Medications: Active Medications Acetaminophen (Tylenol -) 650 mg PO Q4H PRN PRN Reason: PAIN Albuterol Sulfate (Ventolin Hfa Inhaler -) 1 puff IH Q4H PRN PRN Reason: SHORT OF BREATH/WHEEZING Aspirin (Ecotrin -) 81 mg PO DAILY [facility] Last Admin: 05/10/20 09:31 Dose: 81 mg Documented by: Atorvastatin Calcium (Lipitor -) 80 mg PO HS [facility] Last Admin: 05/10/20 21:13 Dose: 80 mg Documented by: Piperacillin Sod/Tazobactam (Sod 3.375 gm/ Dextrose) 50 mls @ 100 mls/hr IVPB Q8H-IV [facility]; Protocol Last Admin: 05/11/20 01:24 Dose: 100 mls/hr Documented by: Metoprolol Succinate (Toprol Xl -) 50 mg PO DAILY [facility] Last Admin: 05/10/20 09:31 Dose: 50 mg Documented by: Ticagrelor (Brilinta -) 90 mg PO BID [facility] Last Admin: 05/10/20 21:13 Dose: 90 mg Documented by: - Objective Vital Signs: Vital Signs Temperature 97.7 F 05/11/20 05:49 Pulse Rate 94 H 05/11/20 05:49 Respiratory Rate 18 05/11/20 05:49 Blood Pressure 105/57 L 05/11/20 05:49 O2 Sat by Pulse Oximetry (%) 96 05/10/20 21:00 Cardiovascular: Yes: S1, S2 Respiratory: Yes: Diminished, On Nasal O2, Other (chest tube) Edema: No Labs: CBC, BMP 05/10/20 05:50 05/10/20 06:00 INR, PTT INR 1.23 (0.83-1.09) H 05/09/20 11:10 Assessment/Plan Problems (1) Pleural effusion Assessment/Plan: -Furosemide 40 mg IVP once -IR consult for pleurx--Placed -Maybe malignant -await results -Pulmonary and cardiology consult appreciated -O2 to keep SpO2>90% Problems reviewed: Yes Code(s): J90 - PLEURAL EFFUSION, NOT ELSEWHERE CLASSIFIED (2) Pneumonia -Abx -ID consult Code(s): J18.9 - PNEUMONIA, UNSPECIFIED ORGANISM Qualifiers: Pneumonia type: due to unspecified organism Laterality: right Lung location: upper lobe of lung Qualified Code(s): J18.9 - Pneumonia, unspecified organism (3) Shortness of breath Problems reviewed: Yes Code(s): R06.02 - SHORTNESS OF BREATH (4) CAD (coronary artery disease) Assessment/Plan: -Resume Brilinta -Resume statin -Cardiology consult Problems reviewed: Yes Code(s): I25.10 - ATHSCL HEART DISEASE OF [place] CORONARY ARTERY W/O ANG PCTRS (5) History of lung cancer Assessment/Plan: -CT chest reviewed -Scarring vs mass in the hilum Problems reviewed: Yes Code(s): Z85.118 - PERSONAL HISTORY OF MALIGNANT NEOPLASM OF BRONCHUS AND LUNG
[2020-05-11] MEDS ORDERED: PT OWN MED DRAWER 7, Y5N ONE ×2 (09:02→22:17)
[2020-05-11] MEDS: ASPIRIN COATED 81 MG TABLET.EC PO SCH (09:48)
[2020-05-11] MEDS: TICAGRELOR 90 MG TABLET PO SCH ×2 (09:49→22:18)
--- NOTE | 2020-05-11 10:22 | PN ---
Progress Note, Physician Chief Complaint: no new complaints tele neg History of Present Illness: 65 year old male with a PMH of COPD smoker, lung cancer s/p radiation 2 years ago, PVD, CAD admitted to [facility] on 10/17/19 for inferior STEMI, underwentPCI w/RANJIT x2 placed in RCA and 11/12/19 for staged PCI for the mid-LAD. He now presents with 3 days of SOB, cough without fever or chills. No chest pain, orthopnea, PND or edema. CT scan done in the ER showed a large left pleural effusion. Underwent thoracentesis. Echo done 05/10/20 EF 45%, inferior akinesis, mild MR, moderate AI. Echo 11/16/19 Regional wall motion abnormalities as described below with overall mildly reduced left ventricular systolic function. Normal right ventricular function. Left Atrium: Normal left atrial size. Left Ventricle: Normal left ventricular size. Inferolateral wall akinesis. Basal inferior wall akinesis. Mildly decreased left ventricular ejection fraction. Right Atrium: Normal right atrial size. Right Ventricle: Normal right ventricular size. Normal right ventricular function. Aortic Valve: Fibrocalcific disease of the aortic valve without stenosis. Mild aortic valve regurgitation. Mitral Valve: Mitral annular calcification. Mild mitral valve regurgitation. Tricuspid Valve: Normal tricuspid valve. Pulmonic Valve: Pulmonic valve not adequately visualized. Arteries: Normal sized aortic root. Pericardium/Pleura: Minimal pericardial effusion. Hemodynamics: Doppler pattern suggests prolonged relaxation and normal left atrial pressure (8 - 14mmHg). Estimated right atrial pressure is Normal (0-5 mmHg). Insufficient tricuspid regurgitation to quantify pulmonary artery pressure. MD Estimated Parameters Ejection Fraction: 45.0 % NST 08/26/19: Normal stress test Normal LVEF No ischemic changes [place] Min 66 max 162 HR 89\IVCD 1run of Vtach Ectopic atrial rhythm Rare PACs - Current Medication List Current Medications: Active Medications Acetaminophen (Tylenol -) 650 mg PO Q4H PRN PRN Reason: PAIN Albuterol Sulfate (Ventolin Hfa Inhaler -) 1 puff IH Q4H PRN PRN Reason: SHORT OF BREATH/WHEEZING Aspirin (Ecotrin -) 81 mg PO DAILY [facility] Last Admin: 05/11/20 09:48 Dose: 81 mg Documented by: Atorvastatin Calcium (Lipitor -) 80 mg PO HS [facility] Last Admin: 05/10/20 21:13 Dose: 80 mg Documented by: Piperacillin Sod/Tazobactam (Sod 3.375 gm/ Dextrose) 50 mls @ 100 mls/hr IVPB Q8H-IV [facility]; Protocol Last Admin: 05/11/20 09:49 Dose: 100 mls/hr Documented by: Metoprolol Succinate (Toprol Xl -) 50 mg PO DAILY [facility] Last Admin: 05/10/20 09:31 Dose: 50 mg Documented by: Ticagrelor (Brilinta -) 90 mg PO BID [facility] Last Admin: 05/11/20 09:49 Dose: 90 mg Documented by: - Objective Vital Signs: Vital Signs Temperature 98.2 F 05/11/20 08:52 Pulse Rate 103 H 05/11/20 08:52 Respiratory Rate 18 05/11/20 08:52 Blood Pressure 87/52 L 05/11/20 08:52 O2 Sat by Pulse Oximetry (%) 98 05/11/20 08:50 Constitutional: Yes: No Distress, Calm Eyes: Yes: Conjunctiva Clear, EOM Intact HENT: Yes: Atraumatic, Normocephalic Neck: Yes: Supple, Trachea Midline Cardiovascular: Yes: Regular Rate and Rhythm Respiratory: Yes: Dullness (left base) Musculoskeletal: Yes: WNL Extremities: Yes: WNL Edema: No Peripheral Pulses WNL: Yes Labs: CBC, BMP 05/10/20 05:50 05/10/20 06:00 INR, PTT INR 1.23 (0.83-1.09) H 05/09/20 11:10 Assessment/Plan 65 year old male with a PMH of COPD smoker, lung cancer s/p radiation 2 years ago, PVD, CAD admitted to [facility] on 10/17/19 for inferior STEMI, underwentPCI w/RANJIT x2 placed in RCA and 11/12/19 for staged PCI for the mid-LAD. He now presents with 3 days of SOB, cough without fever or chills. No chest pain, orthopnea, PND or edema. CT scan done in the ER showed a large left pleural effusion. Underwent thoracentesis. Plan: -left sided effusion is suspicious for malignancy, follow results of thoracentesis. -pulmonary evaluation appreciated. -this is most likely oncologic and not cardiac. -echo is unchanged, no need for ACEI. -elevated WBC and D-dimer concerning for COVID, swab negative. -continue asa and brilinta for one year. Continue beta stephanie and statin. -call us with questions.
[2020-05-11 12:08] LABS: BODY FLUID ALBUMIN 2.9 g/dL (Not Estab.)
--- NOTE | 2020-05-11 15:50 | PN ---
Progress Note (short form) - Note Progress Note: looks comfortable Vital Signs Period Temp Pulse Resp BP Sys/Hernandez Pulse Ox Last 24 Hr 97.2 F-99.0 F 93-103 18-19 87-109/50-63 96-98 cor-rrr lungs decreased bs at bases abd soft,nt ext no edema CBC, BMP 05/10/20 05:50 05/10/20 06:00 Microbiology 05/09/20 17:12 Pleural Fluid Gram Stain - Final 05/09/20 17:12 Pleural Fluid Body Fluid Culture - Preliminary NO AEROBIC GROWTH, 24 HRS 05/09/20 17:12 Pleural Fluid AFB Smear Concentration - Final 05/09/20 17:12 Pleural Fluid Mycobacterial Culture - Preliminary 05/09/20 11:30 Blood - Peripheral Venous Blood Culture - Preliminary NO GROWTH OBTAINED AFTER 24 HOURS, INCUBATION TO CONTINUE FOR 4 DAYS. 05/09/20 17:12 Pleural Fluid NOE Preparation - Preliminary 05/09/20 17:12 Pleural Fluid Fungal Culture - Preliminary 05/09/20 15:30 Urine - Urine Clean Catch Urine Culture - Final NO GROWTH OBTAINED covid pcr negative a/p RUL infiltrate -?aspiration left pleural effusion- s/p chest tube, ?malignancy recent ME with stents prolonged qtc- greater then .5 check cultures, add urinary antigens zosyn to cover for possible aspiration pleural fluid cultures and cytology covid pcr negative Problem List - Problems (1) Pneumonia Code(s): J18.9 - PNEUMONIA, UNSPECIFIED ORGANISM Qualifiers: Pneumonia type: due to unspecified organism Laterality: right Lung location: upper lobe of lung Qualified Code(s): J18.9 - Pneumonia, unspecified organism (2) Pleural effusion Code(s): J90 - PLEURAL EFFUSION, NOT ELSEWHERE CLASSIFIED (3) CAD (coronary artery disease) Code(s): I25.10 - ATHSCL HEART DISEASE OF [place] CORONARY ARTERY W/O ANG PCTRS (4) COPD (chronic obstructive pulmonary disease) Code(s): J44.9 - CHRONIC OBSTRUCTIVE PULMONARY DISEASE, UNSPECIFIED (5) History of lung cancer Code(s): Z85.118 - PERSONAL HISTORY OF MALIGNANT NEOPLASM OF BRONCHUS AND LUNG
[2020-05-11] MEDS: ATORVASTATIN CA 80 MG TABLET (FP) PO SCH (22:18)
[2020-05-12] MEDS ORDERED: PIPERACILLIN/TAZOBACTAM 3.375 GM VIAL IVPB ONE ×3 (00:01→17:16)
[2020-05-12] MEDS ORDERED: DEXTROSE 5%-WATER - 50 ML IVPB ONE ×3 (00:01→17:16)
[2020-05-12] MEDS: PIPERACILLIN/TAZOB 3.375 GM 3.375 GM in DEXTROSE 5%-WATER - 50 ML IVPB SCH ×3 (01:06→17:35)
[2020-05-12] MEDS ORDERED: PT OWN MED DRAWER 7, Y5N ONE ×4 (08:52→21:11)
[2020-05-12] MEDS: ASPIRIN COATED 81 MG TABLET.EC PO SCH (09:09)
[2020-05-12] MEDS: TICAGRELOR 90 MG TABLET PO SCH ×2 (09:10→21:34)
--- NOTE | 2020-05-12 09:56 | PN ---
Progress Note, Physician - Current Medication List Current Medications: Active Medications Acetaminophen (Tylenol -) 650 mg PO Q4H PRN PRN Reason: PAIN Albuterol Sulfate (Ventolin Hfa Inhaler -) 1 puff IH Q4H PRN PRN Reason: SHORT OF BREATH/WHEEZING Aspirin (Ecotrin -) 81 mg PO DAILY [facility] Last Admin: 05/12/20 09:09 Dose: 81 mg Documented by: Atorvastatin Calcium (Lipitor -) 80 mg PO HS [facility] Last Admin: 05/11/20 22:18 Dose: 80 mg Documented by: Piperacillin Sod/Tazobactam (Sod 3.375 gm/ Dextrose) 50 mls @ 100 mls/hr IVPB Q8H-IV [facility]; Protocol Last Admin: 05/12/20 09:09 Dose: 100 mls/hr Documented by: Metoprolol Succinate (Toprol Xl -) 50 mg PO DAILY [facility] Last Admin: 05/12/20 09:09 Dose: 50 mg Documented by: Ticagrelor (Brilinta -) 90 mg PO BID [facility] Last Admin: 05/12/20 09:10 Dose: 90 mg Documented by: - Objective Vital Signs: Vital Signs Temperature 98.0 F 05/12/20 06:34 Pulse Rate 89 05/12/20 06:34 Respiratory Rate 18 05/12/20 06:34 Blood Pressure 98/62 05/12/20 06:34 O2 Sat by Pulse Oximetry (%) 96 05/11/20 21:00 Cardiovascular: Yes: S1, S2 Respiratory: Yes: Diminished, Other (chest tube in place) Labs: CBC, BMP 05/10/20 05:50 05/10/20 06:00 INR, PTT INR 1.23 (0.83-1.09) H 05/09/20 11:10 Assessment/Plan Problems (1) Pleural effusion Assessment/Plan: -Furosemide 40 mg IVP once -IR consult for pleurx--Placed -Maybe malignant -await results -Pulmonary and cardiology consult appreciated -O2 to keep SpO2>90% Problems reviewed: Yes Code(s): J90 - PLEURAL EFFUSION, NOT ELSEWHERE CLASSIFIED (2) Pneumonia -Abx -ID consult Code(s): J18.9 - PNEUMONIA, UNSPECIFIED ORGANISM Qualifiers: Pneumonia type: due to unspecified organism Laterality: right Lung location: upper lobe of lung Qualified Code(s): J18.9 - Pneumonia, unspecified organism (3) Shortness of breath Problems reviewed: Yes Code(s): R06.02 - SHORTNESS OF BREATH (4) CAD (coronary artery disease) Assessment/Plan: -Resume Brilinta -Resume statin -Cardiology consult Problems reviewed: Yes Code(s): I25.10 - ATHSCL HEART DISEASE OF [place] CORONARY ARTERY W/O ANG PCTRS (5) History of lung cancer Assessment/Plan: -CT chest reviewed -Scarring vs mass in the hilum Problems reviewed: Yes Code(s): Z85.118 - PERSONAL HISTORY OF MALIGNANT NEOPLASM OF BRONCHUS AND LUNG
--- NOTE | 2020-05-12 12:08 | PN ---
Progress Note, Physician History of Present Illness: PULMONARY ALERT,FEELING BETTER,DYSPNEA IMPROVING,LESS COUGH,-CP.PLEURAL FLUID C/W EXUDATE,CYTOLOGY PENDING - Current Medication List Current Medications: Active Medications Acetaminophen (Tylenol -) 650 mg PO Q4H PRN PRN Reason: PAIN Albuterol Sulfate (Ventolin Hfa Inhaler -) 1 puff IH Q4H PRN PRN Reason: SHORT OF BREATH/WHEEZING Last Admin: 05/12/20 10:03 Dose: 1 puff Documented by: Aspirin (Ecotrin -) 81 mg PO DAILY [facility] Last Admin: 05/12/20 09:09 Dose: 81 mg Documented by: Atorvastatin Calcium (Lipitor -) 80 mg PO HS [facility] Last Admin: 05/11/20 22:18 Dose: 80 mg Documented by: Piperacillin Sod/Tazobactam (Sod 3.375 gm/ Dextrose) 50 mls @ 100 mls/hr IVPB Q8H-IV [facility]; Protocol Last Admin: 05/12/20 09:09 Dose: 100 mls/hr Documented by: Metoprolol Succinate (Toprol Xl -) 50 mg PO DAILY [facility] Last Admin: 05/12/20 09:09 Dose: 50 mg Documented by: Ticagrelor (Brilinta -) 90 mg PO BID [facility] Last Admin: 05/12/20 09:10 Dose: 90 mg Documented by: - Objective Vital Signs: Vital Signs Temperature 97.8 F 05/12/20 10:00 Pulse Rate 94 H 05/12/20 10:00 Respiratory Rate 18 05/12/20 10:00 Blood Pressure 100/49 L 05/12/20 10:00 O2 Sat by Pulse Oximetry (%) 96 05/12/20 09:00 Constitutional: Yes: Calm, Thin Eyes: Yes: WNL HENT: Yes: WNL Neck: Yes: WNL Cardiovascular: Yes: Regular Rate and Rhythm, S1, S2 Respiratory: Yes: Rhonchi (FEW RHONCHI ON R) Gastrointestinal: Yes: Normal Bowel Sounds, Soft Extremities: Yes: WNL Edema: No Labs: CBC, BMP Problem List - Problems (1) COPD (chronic obstructive pulmonary disease) Code(s): J44.9 - CHRONIC OBSTRUCTIVE PULMONARY DISEASE, UNSPECIFIED (2) CAD (coronary artery disease) Code(s): I25.10 - ATHSCL HEART DISEASE OF [place] CORONARY ARTERY W/O ANG PCTRS (3) History of lung cancer Code(s): Z85.118 - PERSONAL HISTORY OF MALIGNANT NEOPLASM OF BRONCHUS AND LUNG (4) Pleural effusion Code(s): J90 - PLEURAL EFFUSION, NOT ELSEWHERE CLASSIFIED (5) Pneumonia Code(s): J18.9 - PNEUMONIA, UNSPECIFIED ORGANISM Qualifiers: Pneumonia type: due to unspecified organism Laterality: right Lung location: upper lobe of lung Qualified Code(s): J18.9 - Pneumonia, unspecified organism (6) Shortness of breath Code(s): R06.02 - SHORTNESS OF BREATH Assessment/Plan IMP DYSPNEA/HYPOXEMIA LARGE LEFT PLEURAL EFFUSION EXUDATE R/O MALIGNANT H/O LUNG CA S/P RT RUL INFILTRATE ? PNEUMONIA, COPD ASHD S/P STENTS MEDIASTINAL ADENOPATHY PLAN SUPPLEMENTAL O2 ABX PER ID INHALED BRONCHODILATORS MONITOR CHEST TUBE DRAINAGE CHECK PLEURAL FLUID CYTOLOGY pending COVID PCR NEGATIVE DR CASTRO Problem List - Problems (1) COPD (chronic obstructive pulmonary disease) Code(s): J44.9 - CHRONIC OBSTRUCTIVE PULMONARY DISEASE, UNSPECIFIED (2) CAD (coronary artery disease) Code(s): I25.10 - ATHSCL HEART DISEASE OF [place] CORONARY ARTERY W/O ANG PCTRS (3) History of lung cancer Code(s): Z85.118 - PERSONAL HISTORY OF MALIGNANT NEOPLASM OF BRONCHUS AND LUNG (4) Pleural effusion Code(s): J90 - PLEURAL EFFUSION, NOT ELSEWHERE CLASSIFIED (5) Pneumonia Code(s): J18.9 - PNEUMONIA, UNSPECIFIED ORGANISM Qualifiers: Pneumonia type: due to unspecified organism Laterality: right Lung location: upper lobe of lung Qualified Code(s): J18.9 - Pneumonia, unspecified organism (6) Shortness of breath Code(s): R06.02 - SHORTNESS OF BREATH
[2020-05-12] MEDS: ATORVASTATIN CA 80 MG TABLET (FP) PO SCH (21:34)
[2020-05-13] MEDS ORDERED: DEXTROSE 5%-WATER - 50 ML IVPB ONE ×3 (01:12→17:44)
[2020-05-13] MEDS ORDERED: PIPERACILLIN/TAZOBACTAM 3.375 GM VIAL IVPB ONE ×3 (01:12→17:44)
[2020-05-13] MEDS: PIPERACILLIN/TAZOB 3.375 GM 3.375 GM in DEXTROSE 5%-WATER - 50 ML IVPB SCH ×3 (01:16→18:09)
[2020-05-13] MEDS ORDERED: PT OWN MED DRAWER 7, Y5N ONE ×2 (08:45→21:10)
[2020-05-13] MEDS: TICAGRELOR 90 MG TABLET PO SCH ×2 (09:07→22:23)
[2020-05-13] MEDS: ASPIRIN COATED 81 MG TABLET.EC PO SCH (09:07)
--- NOTE | 2020-05-13 10:45 | PN ---
Progress Note, Physician - Current Medication List Current Medications: Active Medications Acetaminophen (Tylenol -) 650 mg PO Q4H PRN PRN Reason: PAIN Albuterol Sulfate (Ventolin Hfa Inhaler -) 1 puff IH Q4H PRN PRN Reason: SHORT OF BREATH/WHEEZING Last Admin: 05/12/20 10:03 Dose: 1 puff Documented by: Aspirin (Ecotrin -) 81 mg PO DAILY [facility] Last Admin: 05/13/20 09:07 Dose: 81 mg Documented by: Atorvastatin Calcium (Lipitor -) 80 mg PO HS [facility] Last Admin: 05/12/20 21:34 Dose: 80 mg Documented by: Piperacillin Sod/Tazobactam (Sod 3.375 gm/ Dextrose) 50 mls @ 100 mls/hr IVPB Q8H-IV [facility]; Protocol Last Admin: 05/13/20 09:07 Dose: 100 mls/hr Documented by: Metoprolol Succinate (Toprol Xl -) 50 mg PO DAILY [facility] Last Admin: 05/13/20 09:07 Dose: 50 mg Documented by: Ticagrelor (Brilinta -) 90 mg PO BID [facility] Last Admin: 05/13/20 09:07 Dose: 90 mg Documented by: - Objective Vital Signs: Vital Signs Temperature 97.8 F 05/13/20 09:27 Pulse Rate 89 05/13/20 09:27 Respiratory Rate 18 05/13/20 09:27 Blood Pressure 100/57 L 05/13/20 09:27 O2 Sat by Pulse Oximetry (%) 97 05/13/20 10:00 Cardiovascular: Yes: S1, S2 Respiratory: Yes: Regular, CTA Bilaterally Gastrointestinal: Yes: Normal Bowel Sounds, Soft Labs: CBC, BMP 05/10/20 05:50 05/10/20 06:00 INR, PTT INR 1.23 (0.83-1.09) H 05/09/20 11:10 Assessment/Plan Problems (1) Pleural effusion Assessment/Plan: -Furosemide 40 mg IVP once -IR pleurx--Placed -Maybe malignant -await results -Pulmonary and cardiology consult appreciated -O2 to keep SpO2>90% Problems reviewed: Yes Code(s): J90 - PLEURAL EFFUSION, NOT ELSEWHERE CLASSIFIED (2) Pneumonia -Abx -ID consult appreciated Code(s): J18.9 - PNEUMONIA, UNSPECIFIED ORGANISM Qualifiers: Pneumonia type: due to unspecified organism Laterality: right Lung location: upper lobe of lung Qualified Code(s): J18.9 - Pneumonia, unspecified organism (3) Shortness of breath Problems reviewed: Yes Code(s): R06.02 - SHORTNESS OF BREATH (4) CAD (coronary artery disease) Assessment/Plan: -Resume Brilinta -Resume statin -Cardiology consult Problems reviewed: Yes Code(s): I25.10 - ATHSCL HEART DISEASE OF [place] CORONARY ARTERY W/O ANG PCTRS (5) History of lung cancer Assessment/Plan: -CT chest reviewed -Scarring vs mass in the hilum Problems reviewed: Yes Code(s): Z85.118 - PERSONAL HISTORY OF MALIGNANT NEOPLASM OF BRONCHUS AND LUNG
[2020-05-13 12:24] LABS: BASO % 1.2 % (0-2.0); EOS % 10.1 % (0-4.5); HEMATOCRIT 37.9 % (35.4-49); HEMOGLOBIN 13.1 GM/dL (11.7-16.9); LYMPH % 9.2 % (8-40); MCH 33.7 pg (25.7-33.7); MCHC 34.6 g/dl (32.0-35.9); MEAN CELL VOLUME 97.4 fl (80-96); MEAN PLT VOLUME 7.7 fl (7.5-11.1); MONO % 11.7 % (3.8-10.2); NEUT % 67.8 % (42.8-82.8); PLATELET COUNT 391 K/MM3 (134-434); RBC 3.89 M/mm3 (4.00-5.60); RDW 12.7 % (11.9-15.9); WHITE BLOOD COUNT 10.5 K/mm3 (4.0-10.0)
[2020-05-13 12:48] LABS: ALBUMIN 2.3 g/dl (3.4-5.0); BILIRUBIN,TOTAL 0.5 mg/dL (0.2-1); BLOOD UREA NITROGEN 15.3 mg/dL (7-18); CALCIUM 8.9 mg/dL (8.5-10.1); CREATININE 0.8 mg/dL (0.55-1.3); POTASSIUM 4.3 mmol/L (3.5-5.1); TOT PROT 6.5 g/dl (6.4-8.2)
--- NOTE | 2020-05-13 13:44 | PATH ---
Cytology Non-Gynecological Report Patient Name: KAHLIL FARIA Med. Rec. #: [id number] /Age/Gender: 1955 (Age: 65) / M Account: [id number] Location: [address] [place], [place] [address]S/ADOL Taken: 05/09/2020 Received: 05/10/2020 Reported: 05/13/2020 Physicians: Na Haas M.D. Specimen(s) Received PLEURAL FLUID Clinical History Pleural effusion Final Diagnosis PLEURAL FLUID, THORACENTESIS: SATISFACTORY FOR EVALUATION NO MALIGNANT CELLS IDENTIFIED. BLOOD, RARE REACTIVE MESOTHELIAL CELLS AND MACROPHAGES PRESENT. Comment: Prior lung cancer history noted. Electronically Signed Nga Jarrett M.D. Gross Description Approximately 55cc of pink fluid received fixed in 50% alcohol. One cytospin and one cellblock prepared.
--- NOTE | 2020-05-13 15:43 | PN ---
Progress Note (short form) - Note Progress Note: PULMONARY States breathing is better. Occasional cough. Pleural fluid cytology without malignant cells. Drained 195mL yesterday. Vital Signs Period Temp Pulse Resp BP Sys/Hernandez Pulse Ox Last 24 Hr 97.5 F-98.5 F 87-93 18-18 92-100/56-59 96-97 Gen: NAD at rest Heart: RRR Lung: decreased breath sounds at the bases Abd: soft, nontender Ext: no edema CBC, BMP 05/13/20 10:45 05/13/20 10:45 Active Medications Acetaminophen (Tylenol -) 650 mg PO Q4H PRN PRN Reason: PAIN Albuterol Sulfate (Ventolin Hfa Inhaler -) 1 puff IH Q4H PRN PRN Reason: SHORT OF BREATH/WHEEZING Last Admin: 05/12/20 10:03 Dose: 1 puff Documented by: Aspirin (Ecotrin -) 81 mg PO DAILY [facility] Last Admin: 05/13/20 09:07 Dose: 81 mg Documented by: Atorvastatin Calcium (Lipitor -) 80 mg PO HS [facility] Last Admin: 05/12/20 21:34 Dose: 80 mg Documented by: Piperacillin Sod/Tazobactam (Sod 3.375 gm/ Dextrose) 50 mls @ 100 mls/hr IVPB Q8H-IV [facility]; Protocol Last Admin: 05/13/20 09:07 Dose: 100 mls/hr Documented by: Metoprolol Succinate (Toprol Xl -) 50 mg PO DAILY [facility] Last Admin: 05/13/20 09:07 Dose: 50 mg Documented by: Ticagrelor (Brilinta -) 90 mg PO BID [facility] Last Admin: 05/13/20 09:07 Dose: 90 mg Documented by: A/P Pneumonia Left Pleural Effusion - Exudative suspect parapneumonic h/o Lung Ca COPD CAD - continue antibiotics - f/u cultures - monitor chest tube output - O2 as needed - DVT prophylaxis - will need outpt f/u of chest imaging
[2020-05-13] MEDS: ATORVASTATIN CA 80 MG TABLET (FP) PO SCH (21:15)
[2020-05-14] MEDS ORDERED: PIPERACILLIN/TAZOBACTAM 3.375 GM VIAL IVPB ONE ×3 (01:41→16:17)
[2020-05-14] MEDS ORDERED: DEXTROSE 5%-WATER - 50 ML IVPB ONE ×3 (01:41→16:17)
[2020-05-14] MEDS: PIPERACILLIN/TAZOB 3.375 GM 3.375 GM in DEXTROSE 5%-WATER - 50 ML IVPB SCH ×3 (02:03→17:36)
[2020-05-14] MEDS ORDERED: PT OWN MED DRAWER 7, Y5N ONE ×2 (09:01→21:16)
[2020-05-14] MEDS: TICAGRELOR 90 MG TABLET PO SCH ×2 (10:11→21:17)
[2020-05-14] MEDS: ASPIRIN COATED 81 MG TABLET.EC PO SCH (10:11)
--- NOTE | 2020-05-14 12:36 | PN ---
Progress Note, Physician - Current Medication List Current Medications: Active Medications Acetaminophen (Tylenol -) 650 mg PO Q4H PRN PRN Reason: PAIN Albuterol Sulfate (Ventolin Hfa Inhaler -) 1 puff IH Q4H PRN PRN Reason: SHORT OF BREATH/WHEEZING Last Admin: 05/12/20 10:03 Dose: 1 puff Documented by: Aspirin (Ecotrin -) 81 mg PO DAILY [facility] Last Admin: 05/14/20 10:11 Dose: 81 mg Documented by: Atorvastatin Calcium (Lipitor -) 80 mg PO HS [facility] Last Admin: 05/13/20 21:15 Dose: 80 mg Documented by: Piperacillin Sod/Tazobactam (Sod 3.375 gm/ Dextrose) 50 mls @ 100 mls/hr IVPB Q8H-IV [facility]; Protocol Last Admin: 05/14/20 10:11 Dose: 100 mls/hr Documented by: Metoprolol Succinate (Toprol Xl -) 50 mg PO DAILY [facility] Last Admin: 05/14/20 10:11 Dose: 50 mg Documented by: Ticagrelor (Brilinta -) 90 mg PO BID [facility] Last Admin: 05/14/20 10:11 Dose: 90 mg Documented by: - Objective Vital Signs: Vital Signs Temperature 97.5 F L 05/14/20 09:58 Pulse Rate 91 H 05/14/20 09:58 Respiratory Rate 18 05/14/20 09:58 Blood Pressure 106/57 L 05/14/20 09:58 O2 Sat by Pulse Oximetry (%) 97 05/14/20 11:43 Cardiovascular: Yes: Regular Rate and Rhythm Respiratory: Yes: Diminished, Other (ct) Gastrointestinal: Yes: Normal Bowel Sounds, Soft Labs: CBC, BMP 05/13/20 10:45 05/13/20 10:45 INR, PTT INR 1.23 (0.83-1.09) H 05/09/20 11:10 Assessment/Plan Problems (1) Pleural effusion Assessment/Plan: -Furosemide 40 mg IVP once -IR pleurx--Placed -Maybe malignant -await results -Pulmonary and cardiology consult appreciated -O2 to keep SpO2>90% Problems reviewed: Yes Code(s): J90 - PLEURAL EFFUSION, NOT ELSEWHERE CLASSIFIED (2) Pneumonia -Abx -ID consult appreciated Code(s): J18.9 - PNEUMONIA, UNSPECIFIED ORGANISM Qualifiers: Pneumonia type: due to unspecified organism Laterality: right Lung location: upper lobe of lung Qualified Code(s): J18.9 - Pneumonia, unspecified organism (3) Shortness of breath Problems reviewed: Yes Code(s): R06.02 - SHORTNESS OF BREATH (4) CAD (coronary artery disease) Assessment/Plan: -Resume Brilinta -Resume statin -Cardiology consult Problems reviewed: Yes Code(s): I25.10 - ATHSCL HEART DISEASE OF [place] CORONARY ARTERY W/O ANG PCTRS (5) History of lung cancer Assessment/Plan: -CT chest reviewed -Scarring vs mass in the hilum Problems reviewed: Yes Code(s): Z85.118 - PERSONAL HISTORY OF MALIGNANT NEOPLASM OF BRONCHUS AND LUNG
--- NOTE | 2020-05-14 14:20 | PN ---
Progress Note (short form) - Note Progress Note: PULMONARY States breathing is better. Occasional cough. Pleural fluid cytology without malignant cells. Drained 150mL since this AM. Vital Signs Period Temp Pulse Resp BP Sys/Hernandez Pulse Ox Last 24 Hr 97.5 F-98.5 F 88-94 18-19 91-129/52-73 97-100 Gen: NAD at rest Heart: RRR Lung: decreased breath sounds at the bases Abd: soft, nontender Ext: no edema CBC, BMP 05/13/20 10:45 05/13/20 10:45 Active Medications Acetaminophen (Tylenol -) 650 mg PO Q4H PRN PRN Reason: PAIN Albuterol Sulfate (Ventolin Hfa Inhaler -) 1 puff IH Q4H PRN PRN Reason: SHORT OF BREATH/WHEEZING Last Admin: 05/12/20 10:03 Dose: 1 puff Documented by: Aspirin (Ecotrin -) 81 mg PO DAILY [facility] Last Admin: 05/14/20 10:11 Dose: 81 mg Documented by: Atorvastatin Calcium (Lipitor -) 80 mg PO HS [facility] Last Admin: 05/13/20 21:15 Dose: 80 mg Documented by: Piperacillin Sod/Tazobactam (Sod 3.375 gm/ Dextrose) 50 mls @ 100 mls/hr IVPB Q8H-IV [facility]; Protocol Last Admin: 05/14/20 10:11 Dose: 100 mls/hr Documented by: Metoprolol Succinate (Toprol Xl -) 50 mg PO DAILY [facility] Last Admin: 05/14/20 10:11 Dose: 50 mg Documented by: Ticagrelor (Brilinta -) 90 mg PO BID [facility] Last Admin: 05/14/20 10:11 Dose: 90 mg Documented by: A/P Pneumonia Left Pleural Effusion - Exudative suspect parapneumonic h/o Lung Ca COPD CAD - repeat CXR in AM - continue antibiotics - f/u cultures - monitor chest tube output - O2 as needed - DVT prophylaxis - will need outpt f/u of chest imaging
[2020-05-14] MEDS: ATORVASTATIN CA 80 MG TABLET (FP) PO SCH (21:17)
[2020-05-15] MEDS ORDERED: DEXTROSE 5%-WATER - 50 ML IVPB ONE ×3 (01:07→16:47)
[2020-05-15] MEDS ORDERED: PIPERACILLIN/TAZOBACTAM 3.375 GM VIAL IVPB ONE ×3 (01:07→16:47)
[2020-05-15] MEDS: PIPERACILLIN/TAZOB 3.375 GM 3.375 GM in DEXTROSE 5%-WATER - 50 ML IVPB SCH ×3 (01:44→17:04)
[2020-05-15] MEDS ORDERED: PT OWN MED DRAWER 7, Y5N ONE ×2 (09:03→09:40)
--- NOTE | 2020-05-15 09:05 | PN ---
Progress Note, Physician - Current Medication List Current Medications: Active Medications Acetaminophen (Tylenol -) 650 mg PO Q4H PRN PRN Reason: PAIN Albuterol Sulfate (Ventolin Hfa Inhaler -) 1 puff IH Q4H PRN PRN Reason: SHORT OF BREATH/WHEEZING Last Admin: 05/12/20 10:03 Dose: 1 puff Documented by: Aspirin (Ecotrin -) 81 mg PO DAILY [facility] Last Admin: 05/14/20 10:11 Dose: 81 mg Documented by: Atorvastatin Calcium (Lipitor -) 80 mg PO HS [facility] Last Admin: 05/14/20 21:17 Dose: 80 mg Documented by: Piperacillin Sod/Tazobactam (Sod 3.375 gm/ Dextrose) 50 mls @ 100 mls/hr IVPB Q8H-IV [facility]; Protocol Last Admin: 05/15/20 01:44 Dose: 100 mls/hr Documented by: Metoprolol Succinate (Toprol Xl -) 50 mg PO DAILY [facility] Last Admin: 05/14/20 10:11 Dose: 50 mg Documented by: Ticagrelor (Brilinta -) 90 mg PO BID [facility] Last Admin: 05/14/20 21:17 Dose: 90 mg Documented by: - Objective Vital Signs: Vital Signs Temperature 98.4 F 05/15/20 06:00 Pulse Rate 89 05/15/20 06:00 Respiratory Rate 18 05/15/20 06:00 Blood Pressure 91/59 L 05/15/20 06:00 O2 Sat by Pulse Oximetry (%) 100 05/14/20 23:30 Cardiovascular: Yes: Regular Rate and Rhythm Respiratory: Yes: Diminished, On Nasal O2, Rales (at the base) Gastrointestinal: Yes: Normal Bowel Sounds, Soft Edema: No Labs: CBC, BMP 05/13/20 10:45 05/13/20 10:45 INR, PTT INR 1.23 (0.83-1.09) H 05/09/20 11:10 Assessment/Plan Problems (1) Pleural effusion Assessment/Plan: -Furosemide 40 mg IVP once -IR pleurx--Placed-- -cxr noted--will/w w pulm -Maybe malignant -await results -Pulmonary and cardiology consult appreciated -O2 to keep SpO2>90% Problems reviewed: Yes Code(s): J90 - PLEURAL EFFUSION, NOT ELSEWHERE CLASSIFIED (2) Pneumonia -Abx -ID consult appreciated Code(s): J18.9 - PNEUMONIA, UNSPECIFIED ORGANISM Qualifiers: Pneumonia type: due to unspecified organism Laterality: right Lung location: upper lobe of lung Qualified Code(s): J18.9 - Pneumonia, unspecified organism (3) Shortness of breath Problems reviewed: Yes Code(s): R06.02 - SHORTNESS OF BREATH (4) CAD (coronary artery disease) Assessment/Plan: -Resume Brilinta -Resume statin -Cardiology consult Problems reviewed: Yes Code(s): I25.10 - ATHSCL HEART DISEASE OF [place] CORONARY ARTERY W/O ANG PCTRS (5) History of lung cancer Assessment/Plan: -CT chest reviewed -Scarring vs mass in the hilum Problems reviewed: Yes Code(s): Z85.118 - PERSONAL HISTORY OF MALIGNANT NEOPLASM OF BRONCHUS AND LUNG
[2020-05-15] MEDS: ASPIRIN COATED 81 MG TABLET.EC PO SCH (09:14)
[2020-05-15] MEDS: TICAGRELOR 90 MG TABLET PO SCH ×2 (10:02→22:11)
--- NOTE | 2020-05-15 13:28 | PN ---
Progress Note (short form) - Note Progress Note: OOB to chair. States breathing is better. Dry occasional cough. CXR: slight decrease in left effusion Intake & Output 05/12/20 05/13/20 05/14/20 05/15/20 23:59 23:59 23:59 23:59 Intake Total 1920 1040 2140 450 Output Total 1395 2160 1226 660 Balance 525 -1120 914 -210 Last Vital Signs Temp Pulse Resp BP Pulse Ox 97.5 F L 86 18 99/54 L 99 05/15/20 09:09 05/15/20 09:09 05/15/20 09:09 05/15/20 09:09 05/15/20 11:55 Active Medications Acetaminophen (Tylenol -) 650 mg PO Q4H PRN PRN Reason: PAIN Albuterol Sulfate (Ventolin Hfa Inhaler -) 1 puff IH Q4H PRN PRN Reason: SHORT OF BREATH/WHEEZING Last Admin: 05/12/20 10:03 Dose: 1 puff Documented by: Aspirin (Ecotrin -) 81 mg PO DAILY [facility] Last Admin: 05/15/20 09:14 Dose: 81 mg Documented by: Atorvastatin Calcium (Lipitor -) 80 mg PO HS [facility] Last Admin: 05/14/20 21:17 Dose: 80 mg Documented by: Piperacillin Sod/Tazobactam (Sod 3.375 gm/ Dextrose) 50 mls @ 100 mls/hr IVPB Q8H-IV [facility]; Protocol Last Admin: 05/15/20 09:16 Dose: 100 mls/hr Documented by: Metoprolol Succinate (Toprol Xl -) 50 mg PO DAILY [facility] Last Admin: 05/15/20 09:14 Dose: 50 mg Documented by: Ticagrelor (Brilinta -) 90 mg PO BID [facility] Last Admin: 05/15/20 10:02 Dose: 90 mg Documented by: Gen: NAD at rest Heart: RRR Lung: decreased breath sounds at the bases, Left pigtail catheter Abd: soft, nontender Ext: no edema A/P Pneumonia Left Pleural Effusion - Exudative suspect parapneumonic h/o Lung Ca COPD CAD - continue antibiotics - f/u cultures - monitor chest tube output - O2 as needed - DVT prophylaxis - will need outpt f/u of chest imaging Dr Dowling
--- NOTE | 2020-05-15 14:24 | PN ---
Progress Note (short form) - Note Progress Note: looks comfortable cytology negative from effusion still with chest tube Vital Signs Period Temp Pulse Resp BP Sys/Hernandez Pulse Ox Last 24 Hr 97.5 F-98.4 F 86-95 18-18 91-113/54-66 99-100 cor-rrr lungs decreased bs at bases abd soft,nt ext no edema CBC, BMP 05/13/20 10:45 05/13/20 10:45 Microbiology 05/09/20 11:30 Blood - Peripheral Venous Blood Culture - Final NO GROWTH AFTER 5 DAYS INCUBATION 05/11/20 16:30 Urine For Antigen Detection Legionella Antigen - Final 05/11/20 16:30 Urine For Antigen Detection Streptococcus pneumoniae Antigen (M - Final 05/09/20 17:12 Pleural Fluid Gram Stain - Final 05/09/20 17:12 Pleural Fluid Body Fluid Culture - Final NO GROWTH OF AEROBIC ORGANISMS AFTER 48 HOURS INCUBATION 05/09/20 17:12 Pleural Fluid Anaerobic Culture - Final NO ANAEROBES WERE ISOLATED 05/09/20 17:12 Pleural Fluid AFB Smear Concentration - Final 05/09/20 17:12 Pleural Fluid Mycobacterial Culture - Preliminary 05/09/20 17:12 Pleural Fluid NOE Preparation - Preliminary 05/09/20 17:12 Pleural Fluid Fungal Culture - Preliminary 05/09/20 15:30 Urine - Urine Clean Catch Urine Culture - Final NO GROWTH OBTAINED covid pcr negative a/p RUL infiltrate -?aspiration left pleural effusion- s/p chest tube recent MD with stents prolonged qtc- greater then .5 continue zosyn day #6 improvement in RUL infiltrate Problem List - Problems (1) Pneumonia Code(s): J18.9 - PNEUMONIA, UNSPECIFIED ORGANISM Qualifiers: Pneumonia type: due to unspecified organism Laterality: right Lung location: upper lobe of lung Qualified Code(s): J18.9 - Pneumonia, unspecified organism (2) Pleural effusion Code(s): J90 - PLEURAL EFFUSION, NOT ELSEWHERE CLASSIFIED (3) CAD (coronary artery disease) Code(s): I25.10 - ATHSCL HEART DISEASE OF [place] CORONARY ARTERY W/O ANG PCTRS (4) COPD (chronic obstructive pulmonary disease) Code(s): J44.9 - CHRONIC OBSTRUCTIVE PULMONARY DISEASE, UNSPECIFIED (5) History of lung cancer Code(s): Z85.118 - PERSONAL HISTORY OF MALIGNANT NEOPLASM OF BRONCHUS AND LUNG
[2020-05-15] MEDS: ATORVASTATIN CA 80 MG TABLET (FP) PO SCH (22:11)
[2020-05-16] MEDS ORDERED: PIPERACILLIN/TAZOBACTAM 3.375 GM VIAL IVPB ONE ×3 (01:25→16:31)
[2020-05-16] MEDS ORDERED: DEXTROSE 5%-WATER - 50 ML IVPB ONE ×3 (01:25→16:31)
[2020-05-16] MEDS: PIPERACILLIN/TAZOB 3.375 GM 3.375 GM in DEXTROSE 5%-WATER - 50 ML IVPB SCH ×3 (01:47→17:57)
--- NOTE | 2020-05-16 07:30 | PN ---
Progress Note, Physician Chief Complaint: pulmonary alert,cmfortable,occ cough,chest tube drainage approx 75cc daily - Current Medication List Current Medications: Active Medications Acetaminophen (Tylenol -) 650 mg PO Q4H PRN PRN Reason: PAIN Albuterol Sulfate (Ventolin Hfa Inhaler -) 1 puff IH Q4H PRN PRN Reason: SHORT OF BREATH/WHEEZING Last Admin: 05/12/20 10:03 Dose: 1 puff Documented by: Aspirin (Ecotrin -) 81 mg PO DAILY [facility] Last Admin: 05/15/20 09:14 Dose: 81 mg Documented by: Atorvastatin Calcium (Lipitor -) 80 mg PO HS [facility] Last Admin: 05/15/20 22:11 Dose: 80 mg Documented by: Piperacillin Sod/Tazobactam (Sod 3.375 gm/ Dextrose) 50 mls @ 100 mls/hr IVPB Q8H-IV [facility]; Protocol Last Admin: 05/16/20 01:47 Dose: 100 mls/hr Documented by: Metoprolol Succinate (Toprol Xl -) 50 mg PO DAILY [facility] Last Admin: 05/15/20 09:14 Dose: 50 mg Documented by: Ticagrelor (Brilinta -) 90 mg PO BID [facility] Last Admin: 05/15/20 22:11 Dose: 90 mg Documented by: - Objective Vital Signs: Vital Signs Temperature 98.4 F 05/16/20 06:00 Pulse Rate 86 05/16/20 06:00 Respiratory Rate 18 05/16/20 06:00 Blood Pressure 104/60 05/16/20 06:00 O2 Sat by Pulse Oximetry (%) 99 05/15/20 22:00 Constitutional: Yes: Well Nourished, Calm Eyes: Yes: WNL HENT: Yes: WNL Neck: Yes: WNL Cardiovascular: Yes: Regular Rate and Rhythm, S1, S2 Respiratory: Yes: Rhonchi (few rhonchi) Gastrointestinal: Yes: Normal Bowel Sounds, Soft Extremities: Yes: WNL Edema: No Labs: CBC, BMP Problem List - Problems (1) COPD (chronic obstructive pulmonary disease) Code(s): J44.9 - CHRONIC OBSTRUCTIVE PULMONARY DISEASE, UNSPECIFIED (2) CAD (coronary artery disease) Code(s): I25.10 - ATHSCL HEART DISEASE OF [place] CORONARY ARTERY W/O ANG PCTRS (3) History of lung cancer Code(s): Z85.118 - PERSONAL HISTORY OF MALIGNANT NEOPLASM OF BRONCHUS AND LUNG (4) Pleural effusion Code(s): J90 - PLEURAL EFFUSION, NOT ELSEWHERE CLASSIFIED (5) Pneumonia Code(s): J18.9 - PNEUMONIA, UNSPECIFIED ORGANISM Qualifiers: Pneumonia type: due to unspecified organism Laterality: right Lung location: upper lobe of lung Qualified Code(s): J18.9 - Pneumonia, unspecified organism (6) Shortness of breath Code(s): R06.02 - SHORTNESS OF BREATH Assessment/Plan IMP DYSPNEA/HYPOXEMIA IMPPROVED LARGE LEFT PLEURAL EFFUSION EXUDATE R/O MALIGNANT H/O LUNG CA S/P RT RUL INFILTRATE ? PNEUMONIA, COPD ASHD S/P STENTS MEDIASTINAL ADENOPATHY PLAN SUPPLEMENTAL O2 ABX PER ID INHALED BRONCHODILATORS MONITOR CHEST TUBE DRAINAGE PLEURAL FLUID CYTOLOGY -MALIGNANCY COVID PCR NEGATIVE DR CASTRO Problem List - Problems (1) COPD (chronic obstructive pulmonary disease) Code(s): J44.9 - CHRONIC OBSTRUCTIVE PULMONARY DISEASE, UNSPECIFIED (2) CAD (coronary artery disease) Code(s): I25.10 - ATHSCL HEART DISEASE OF [place] CORONARY ARTERY W/O ANG PCTRS (3) History of lung cancer Code(s): Z85.118 - PERSONAL HISTORY OF MALIGNANT NEOPLASM OF BRONCHUS AND LUNG (4) Pleural effusion Code(s): J90 - PLEURAL EFFUSION, NOT ELSEWHERE CLASSIFIED (5) Pneumonia Code(s): J18.9 - PNEUMONIA, UNSPECIFIED ORGANISM Qualifiers: Pneumonia type: due to unspecified organism Laterality: right Lung location: upper lobe of lung Qualified Code(s): J18.9 - Pneumonia, unspecified organism (6) Shortness of breath Code(s): R06.02 - SHORTNESS OF BREATH
[2020-05-16] MEDS ORDERED: PT OWN MED DRAWER 7, Y5N ONE ×3 (08:55→20:56)
--- NOTE | 2020-05-16 09:06 | PN ---
Progress Note, Physician - Current Medication List Current Medications: Active Medications Acetaminophen (Tylenol -) 650 mg PO Q4H PRN PRN Reason: PAIN Albuterol Sulfate (Ventolin Hfa Inhaler -) 1 puff IH Q4H PRN PRN Reason: SHORT OF BREATH/WHEEZING Last Admin: 05/12/20 10:03 Dose: 1 puff Documented by: Aspirin (Ecotrin -) 81 mg PO DAILY [facility] Last Admin: 05/15/20 09:14 Dose: 81 mg Documented by: Atorvastatin Calcium (Lipitor -) 80 mg PO HS [facility] Last Admin: 05/15/20 22:11 Dose: 80 mg Documented by: Piperacillin Sod/Tazobactam (Sod 3.375 gm/ Dextrose) 50 mls @ 100 mls/hr IVPB Q8H-IV [facility]; Protocol Last Admin: 05/16/20 01:47 Dose: 100 mls/hr Documented by: Metoprolol Succinate (Toprol Xl -) 50 mg PO DAILY [facility] Last Admin: 05/15/20 09:14 Dose: 50 mg Documented by: Ticagrelor (Brilinta -) 90 mg PO BID [facility] Last Admin: 05/15/20 22:11 Dose: 90 mg Documented by: - Objective Vital Signs: Vital Signs Temperature 98.4 F 05/16/20 06:00 Pulse Rate 86 05/16/20 06:00 Respiratory Rate 18 05/16/20 06:00 Blood Pressure 104/60 05/16/20 06:00 O2 Sat by Pulse Oximetry (%) 99 05/15/20 22:00 Cardiovascular: Yes: Regular Rate and Rhythm Respiratory: Yes: Diminished (improved), On Nasal O2 Labs: CBC, BMP 05/13/20 10:45 05/13/20 10:45 INR, PTT INR 1.23 (0.83-1.09) H 05/09/20 11:10 Assessment/Plan Problems (1) Pleural effusion Assessment/Plan: -Furosemide 40 mg IVP once -IR pleurx--Placed-- -cxr noted--will/w w pulm -Maybe malignant -await results -Pulmonary and cardiology consult appreciated -O2 to keep SpO2>90% Problems reviewed: Yes Code(s): J90 - PLEURAL EFFUSION, NOT ELSEWHERE CLASSIFIED (2) Pneumonia -Abx -ID consult appreciated Code(s): J18.9 - PNEUMONIA, UNSPECIFIED ORGANISM Qualifiers: Pneumonia type: due to unspecified organism Laterality: right Lung location: upper lobe of lung Qualified Code(s): J18.9 - Pneumonia, unspecified organism (3) Shortness of breath Problems reviewed: Yes Code(s): R06.02 - SHORTNESS OF BREATH (4) CAD (coronary artery disease) Assessment/Plan: -Resume Brilinta -Resume statin -Cardiology consult Problems reviewed: Yes Code(s): I25.10 - ATHSCL HEART DISEASE OF [place] CORONARY ARTERY W/O ANG PCTRS (5) History of lung cancer Assessment/Plan: -CT chest reviewed -Scarring vs mass in the hilum Problems reviewed: Yes Code(s): Z85.118 - PERSONAL HISTORY OF MALIGNANT NEOPLASM OF BRONCHUS AND LUNG
[2020-05-16] MEDS: TICAGRELOR 90 MG TABLET PO SCH ×2 (09:32→21:26)
[2020-05-16] MEDS: ASPIRIN COATED 81 MG TABLET.EC PO SCH (09:32)
--- NOTE | 2020-05-16 10:22 | CONSULT ---
Consultation: REQUESTING PROVIDER: CONSULT REQUEST: We have been asked to medically evaluate this patient for Hx. of Lung CA w/ possible recurrence?. HISTORY OF PRESENT ILLNESS: Pt. is a 65 y.o. M w/ PMHx. of HTN, HLD, CAD (s/p [place] and 4 stents 10/28 and 11/29) and Hx. of Lung CA( Ddx. 6 years ago s/p RT x 6-7 t reatments last 2 years ago @ [place]) presents for shortness of breath over the last few days. Pt. endorses associated 20 lb. weight loss over the last month associated with decreased appetite, denies difficulty swallowing. Pt. denies fever but does endorse feeling hot and having chills since hospital admission. Pt. endorses having a RLE bypass ~6 years ago before being diagnosed with Lung CA. Last Colonoscopy was 6-7 years ago and was negative. Pt. denies any work up for Prostate CA. Pt. endorses significant family history of cancer including brother with "throat CA" at 59( was a heavy smoker and drinker), second brother with liver cirrhosis (heave drinker) and Father with emphysema and heart disease at 71 from Prostate CA. Pt. endorses nausea vomiting and diarrhea that cesased prior to admission. Pt. states that in the Ed he coughed up some blood once but has since not had any episodes of coughing or hemoptysis. Pt. states he quit smoking 1 months ago and smoked 5-6 cigs/ day for 40+ years. During this admission IR placed chest tube for large left pleural effusion. No malignant cells were identified and repeat CXR shows improvement of effusion. Pt. denies using oxygen at home but has been requiring 3L NC throughout this admission. Pt. states that his appetite has returned over the last 2-3 days. REVIEW OF SYSTEMS: As above PHYSICAL EXAMINATION Vital Signs - 24 hr 05/15/20 05/15/20 05/15/20 11:55 14:19 18:00 Temperature 98.4 F 97.3 F L Pulse Rate 94 H 89 Respiratory 18 20 Rate Blood Pressure 110/58 L 100/54 L O2 Sat by Pulse 99 Oximetry (%) 05/15/20 05/15/20 05/16/20 21:00 22:00 02:00 Temperature 98.8 F 98.0 F Pulse Rate 95 H 86 Respiratory 18 18 18 Rate Blood Pressure 102/58 L 108/60 O2 Sat by Pulse 100 99 Oximetry (%) 05/16/20 05/16/20 05/16/20 06:00 09:00 09:20 Temperature 98.4 F 97.7 F Pulse Rate 86 88 Respiratory 18 18 Rate Blood Pressure 104/60 97/57 L O2 Sat by Pulse 100 Oximetry (%) GENERAL: Awake, alert, and fully oriented, in no acute distress. HEAD: Normal with no signs of trauma. EYES: Extraocular movements intact, sclera anicteric, conjunctiva clear. EARS, NOSE, THROAT: Ears normal, nares patent, oropharynx clear without exudates. Moist mucous membranes. NECK: Normal range of motion, supple without lymphadenopathy, JVD, or masses. LUNGS: Decreased breath sounds on the Left compared to the right. No wheezing or crackles HEART: Regular rate and rhythm, normal S1 and S2 without murmur ABDOMEN: Soft, nontender, not distended, normoactive bowel sounds, no guarding, no rebound UPPER EXTREMITIES: warm, well-perfused. No cyanosis. No peripheral edema. LOWER EXTREMITIES: 2+ dorsal pedal pulses, warm, well-perfused. No calf tenderness. No peripheral edema. NEUROLOGICAL: No focal deficits, Gait not assessed PSYCHIATRIC: Cooperative. Good eye contact. Appropriate mood and affect. SKIN: Warm, dry Active Medications Generic Name Dose Route Start Last Admin Trade Name Freq PRN Reason Stop Dose Admin Acetaminophen 650 mg 05/09/20 17:47 Tylenol - PO Q4H PRN PAIN Albuterol Sulfate 1 puff 05/10/20 06:20 05/12/20 10:03 Ventolin Hfa Inhaler - IH 1 puff Q4H PRN Administration SHORT OF BREATH/WHEEZING Aspirin 81 mg 05/10/20 10:00 05/16/20 09:32 Ecotrin - PO 81 mg DAILY [facility] Administration Atorvastatin Calcium 80 mg 05/10/20 22:00 05/15/20 22:11 Lipitor - PO 80 mg HS [facility] Administration Piperacillin Sod/Tazobactam 50 mls @ 100 mls/hr 05/10/20 13:45 05/16/20 09:08 Sod 3.375 gm/ Dextrose IVPB 100 mls/hr Q8H-IV [facility] Administration Protocol Metoprolol Succinate 50 mg 05/10/20 10:00 05/15/20 09:14 Toprol Xl - PO 50 mg DAILY [facility] Administration Ticagrelor 90 mg 05/09/20 22:00 05/16/20 09:32 Brilinta - PO 90 mg BID [facility] Administration ASSESSMENT/PLAN: Pt. is a 65 y.o. M w/ PMHx. of HTN, HLD, CAD (s/p [place] and 4 stents 10/28 and 11/29) and Hx. of Lung CA (Ddx. 6 years ago s/p RT x 6-7 treatments last 2 years ago @ [place]) presents for shortness of breath over the last few days. #Hx. of Lung CA f/u Rpt. imaging of chest to assess for re-accumulation of fluid, if increased consider jail drain vs. Metastatic workup Fluid cytology negative for malignancy however this can be the case in spite of malignancy. obtain records from [place] in [place] about treatment #HTN #CAD #HLD c/w home medications #DVT Ppx. c/w Brillinta Dispo: We will continue to follow the patient. Thank you for this consultative opportunity. Visit type - Emergency Visit Emergency Visit: Yes ED Registration Date: 05/09/20 Care time: The patient presented to the Emergency Department on the above date and was hospitalized for further evaluation of their emergent condition. - New Patient This patient is new to me today: Yes Date on this admission: 05/16/20 - Critical Care Critical Care patient: No ATTENDING PHYSICIAN STATEMENT I saw and evaluated the patient. I reviewed the resident's note and discussed the case with the resident. I agree with the resident's findings and plan as documented. SUBJECTIVE: OBJECTIVE: ASSESSMENT AND PLAN:
--- NOTE | 2020-05-16 16:00 | CONSULT ---
Consult - text type - Consultation Consultation Note: Thoracic Surgery Consultation: Consulted for left pleural effusion management. 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 Denied fevers. Drained left effusion while inpatient which improved sx. CT showed RUL infiltrate although could be c/w COVID as well and atelectatic left lung although I believe there is a pleural based nodule. Cytology negative. I recommend the following: -CT with lung expanded; -COVID ab test; -Possible vats to r/o mesothelioma if no obvious bx target but would likely get PET first. I have spent 45 minutes on this consultation with >50% involved in counseling and coordination of care including reviewing images, history, and discussing with Dr. Jordan, Dr. Fagan, and Dr. Alex.
--- NOTE | 2020-05-16 17:40 | PN ---
Teaching Attending Note Name of Resident: Robert Keating ATTENDING PHYSICIAN STATEMENT I saw and evaluated the patient. I reviewed the resident's note and discussed the case with the resident. I agree with the resident's findings and plan as documented. 65 y/o gentleman with PMH HTN, HLD, CAD (s/p 2 stents 10/28 and 11/29), COPD, asbestos exposure and previous reported L sided stage I Lung Cancer treated at the [facility] in [place] with SBRT in 2014, he follows with Dr. Daniel Ball and saw him last 11/2019. He presents now with SOB for several days, lost ~ 20 lbs and an episode of possible hemoptysis in the ER. He was found to have a large left pleural effusion s/p IR placed chest tube. He is pleasant, conversant and well appearing. Recommend: 1) Follow-up cytology, chemistry and cultures of pleural effusion. 2) CT Scan Neck, Chest, Abdomen and Pelvis to r/o disease recurrence. 3) [facility] notes. May consider bronchoscopy. 4) Mesothelioma should be excluded as well. Imaging and tissue sampling as needed. 5) Please review Dr. Keating's note for details. 6) Thank you very much for this consultation.
[2020-05-16] MEDS: ATORVASTATIN CA 80 MG TABLET (FP) PO SCH (21:26)
[2020-05-17] MEDS ORDERED: PIPERACILLIN/TAZOBACTAM 3.375 GM VIAL IVPB ONE ×3 (02:02→17:04)
[2020-05-17] MEDS ORDERED: DEXTROSE 5%-WATER - 50 ML IVPB ONE ×3 (02:03→17:04)
[2020-05-17] MEDS: PIPERACILLIN/TAZOB 3.375 GM 3.375 GM in DEXTROSE 5%-WATER - 50 ML IVPB SCH ×4 (02:05→17:42)
--- NOTE | 2020-05-17 09:58 | PN ---
Progress Note, Physician - Current Medication List Current Medications: Active Medications Acetaminophen (Tylenol -) 650 mg PO Q4H PRN PRN Reason: PAIN Albuterol Sulfate (Ventolin Hfa Inhaler -) 1 puff IH Q4H PRN PRN Reason: SHORT OF BREATH/WHEEZING Last Admin: 05/12/20 10:03 Dose: 1 puff Documented by: Aspirin (Ecotrin -) 81 mg PO DAILY [facility] Last Admin: 05/16/20 09:32 Dose: 81 mg Documented by: Atorvastatin Calcium (Lipitor -) 80 mg PO HS [facility] Last Admin: 05/16/20 21:26 Dose: 80 mg Documented by: Piperacillin Sod/Tazobactam (Sod 3.375 gm/ Dextrose) 50 mls @ 100 mls/hr IVPB Q8H-IV [facility]; Protocol Last Admin: 05/17/20 02:05 Dose: 100 mls/hr Documented by: Metoprolol Succinate (Toprol Xl -) 50 mg PO DAILY [facility] Last Admin: 05/16/20 10:58 Dose: 50 mg Documented by: Ticagrelor (Brilinta -) 90 mg PO BID [facility] Last Admin: 05/16/20 21:26 Dose: 90 mg Documented by: - Objective Vital Signs: Vital Signs Temperature 98.2 F 05/17/20 05:00 Pulse Rate 84 05/17/20 07:02 Respiratory Rate 18 05/17/20 07:02 Blood Pressure 98/47 L 05/17/20 07:02 O2 Sat by Pulse Oximetry (%) 99 05/16/20 23:00 Labs: CBC, BMP 05/13/20 10:45 05/13/20 10:45 INR, PTT INR 1.23 (0.83-1.09) H 05/09/20 11:10
[2020-05-17] MEDS: TICAGRELOR 90 MG TABLET PO SCH ×2 (10:40→21:00)
[2020-05-17] MEDS: ASPIRIN COATED 81 MG TABLET.EC PO SCH (10:40)
--- NOTE | 2020-05-17 11:01 | PN ---
Progress Note (short form) - Note Progress Note: Thoracic Surgery: CT scan reviewed. HUMBERTO nodule. I recommend PET scan and CT guided biopsy of the lesion. Can be done as inpatient (leave tube in), or outpatient (remove tube).
--- NOTE | 2020-05-17 11:41 | PN ---
Progress Note, Physician History of Present Illness: PULMONARY ALERT,COMFORTABLE,-SOB. CHEST TUBE DRAINAGE 25CC. CHEST CT HUMBERTO PLEURAL BASED MAS S - Current Medication List Current Medications: Active Medications Acetaminophen (Tylenol -) 650 mg PO Q4H PRN PRN Reason: PAIN Albuterol Sulfate (Ventolin Hfa Inhaler -) 1 puff IH Q4H PRN PRN Reason: SHORT OF BREATH/WHEEZING Last Admin: 05/12/20 10:03 Dose: 1 puff Documented by: Aspirin (Ecotrin -) 81 mg PO DAILY [facility] Last Admin: 05/17/20 10:40 Dose: 81 mg Documented by: Atorvastatin Calcium (Lipitor -) 80 mg PO HS [facility] Last Admin: 05/16/20 21:26 Dose: 80 mg Documented by: Piperacillin Sod/Tazobactam (Sod 3.375 gm/ Dextrose) 50 mls @ 100 mls/hr IVPB Q8H-IV [facility]; Protocol Last Admin: 05/17/20 10:39 Dose: 100 mls/hr Documented by: Metoprolol Succinate (Toprol Xl -) 50 mg PO DAILY [facility] Last Admin: 05/17/20 10:40 Dose: 50 mg Documented by: Ticagrelor (Brilinta -) 90 mg PO BID [facility] Last Admin: 05/17/20 10:40 Dose: 90 mg Documented by: - Objective Vital Signs: Vital Signs Temperature 98.3 F 05/17/20 10:33 Pulse Rate 99 H 05/17/20 10:33 Respiratory Rate 18 05/17/20 10:33 Blood Pressure 106/55 L 05/17/20 10:33 O2 Sat by Pulse Oximetry (%) 99 05/16/20 23:00 Constitutional: Yes: Calm, Thin Eyes: Yes: WNL HENT: Yes: WNL Neck: Yes: WNL Cardiovascular: Yes: Regular Rate and Rhythm, S1, S2 Respiratory: Yes: Wheezes (FEW WHEEZES) Gastrointestinal: Yes: Normal Bowel Sounds, Soft Extremities: Yes: WNL Edema: No Labs: CBC, BMP 05/13/20 10:45 Problem List - Problems (1) COPD (chronic obstructive pulmonary disease) Code(s): J44.9 - CHRONIC OBSTRUCTIVE PULMONARY DISEASE, UNSPECIFIED (2) CAD (coronary artery disease) Code(s): I25.10 - ATHSCL HEART DISEASE OF [place] CORONARY ARTERY W/O ANG PCTRS (3) History of lung cancer Code(s): Z85.118 - PERSONAL HISTORY OF MALIGNANT NEOPLASM OF BRONCHUS AND LUNG (4) Pleural effusion Code(s): J90 - PLEURAL EFFUSION, NOT ELSEWHERE CLASSIFIED (5) Pneumonia Code(s): J18.9 - PNEUMONIA, UNSPECIFIED ORGANISM Qualifiers: Pneumonia type: due to unspecified organism Laterality: right Lung location: upper lobe of lung Qualified Code(s): J18.9 - Pneumonia, unspecified organism (6) Shortness of breath Code(s): R06.02 - SHORTNESS OF BREATH Assessment/Plan IMP DYSPNEA/HYPOXEMIA IMPROVED LARGE LEFT PLEURAL EFFUSION EXUDATE R/O MALIGNANT H/O LUNG CA S/P RT RUL INFILTRATE ? PNEUMONIA, COPD ASHD S/P STENTS MEDIASTINAL ADENOPATHY HUMBERTO MASS PLEURAL BASED PLAN SUPPLEMENTAL O2 ABX PER ID INHALED BRONCHODILATORS MONITOR CHEST TUBE DRAINAGE PLEURAL FLUID CYTOLOGY -MALIGNANCY COVID PCR NEGATIVE IR EVAL FOR BX HUMBERTO MASS DR CASTRO Problem List - Problems (1) COPD (chronic obstructive pulmonary disease) Code(s): J44.9 - CHRONIC OBSTRUCTIVE PULMONARY DISEASE, UNSPECIFIED (2) CAD (coronary artery disease) Code(s): I25.10 - ATHSCL HEART DISEASE OF [place] CORONARY ARTERY W/O ANG PCTRS (3) History of lung cancer Code(s): Z85.118 - PERSONAL HISTORY OF MALIGNANT NEOPLASM OF BRONCHUS AND LUNG (4) Pleural effusion Code(s): J90 - PLEURAL EFFUSION, NOT ELSEWHERE CLASSIFIED (5) Pneumonia Code(s): J18.9 - PNEUMONIA, UNSPECIFIED ORGANISM Qualifiers: Pneumonia type: due to unspecified organism Laterality: right Lung location: upper lobe of lung Qualified Code(s): J18.9 - Pneumonia, unspecified organism (6) Shortness of breath Code(s): R06.02 - SHORTNESS OF BREATH
--- NOTE | 2020-05-17 12:02 | PN ---
Progress Note, Physician - Current Medication List Current Medications: Active Medications Acetaminophen (Tylenol -) 650 mg PO Q4H PRN PRN Reason: PAIN Albuterol Sulfate (Ventolin Hfa Inhaler -) 1 puff IH Q4H PRN PRN Reason: SHORT OF BREATH/WHEEZING Last Admin: 05/12/20 10:03 Dose: 1 puff Documented by: Aspirin (Ecotrin -) 81 mg PO DAILY [facility] Last Admin: 05/17/20 10:40 Dose: 81 mg Documented by: Atorvastatin Calcium (Lipitor -) 80 mg PO HS [facility] Last Admin: 05/16/20 21:26 Dose: 80 mg Documented by: Piperacillin Sod/Tazobactam (Sod 3.375 gm/ Dextrose) 50 mls @ 100 mls/hr IVPB Q8H-IV [facility]; Protocol Last Admin: 05/17/20 10:39 Dose: 100 mls/hr Documented by: Metoprolol Succinate (Toprol Xl -) 50 mg PO DAILY [facility] Last Admin: 05/17/20 10:40 Dose: 50 mg Documented by: Ticagrelor (Brilinta -) 90 mg PO BID [facility] Last Admin: 05/17/20 10:40 Dose: 90 mg Documented by: - Objective Vital Signs: Vital Signs Temperature 98.3 F 05/17/20 10:33 Pulse Rate 99 H 05/17/20 10:33 Respiratory Rate 18 05/17/20 10:33 Blood Pressure 106/55 L 05/17/20 10:33 O2 Sat by Pulse Oximetry (%) 99 05/16/20 23:00 Cardiovascular: Yes: S1, S2 Respiratory: Yes: Diminished, On Nasal O2, Other (ct) Gastrointestinal: Yes: Normal Bowel Sounds, Soft Labs: CBC, BMP 05/13/20 10:45 05/13/20 10:45 INR, PTT INR 1.23 (0.83-1.09) H 05/09/20 11:10 Assessment/Plan Problems (1) Pleural effusion Assessment/Plan: -Furosemide 40 mg IVP once -IR pleurx--Placed-- -cxr noted--d/w pulm--consult TS--pt hesitent to do surgery but will consider--agree with biopsy -IR consult -Maybe malignant -await results -Pulmonary and cardiology consult appreciated -O2 to keep SpO2>90% Problems reviewed: Yes Code(s): J90 - PLEURAL EFFUSION, NOT ELSEWHERE CLASSIFIED (2) Pneumonia -Abx -ID consult appreciated Code(s): J18.9 - PNEUMONIA, UNSPECIFIED ORGANISM Qualifiers: Pneumonia type: due to unspecified organism Laterality: right Lung location: upper lobe of lung Qualified Code(s): J18.9 - Pneumonia, unspecified organism (3) Shortness of breath Problems reviewed: Yes Code(s): R06.02 - SHORTNESS OF BREATH (4) CAD (coronary artery disease) Assessment/Plan: -Resume Brilinta -Resume statin -Cardiology consult Problems reviewed: Yes Code(s): I25.10 - ATHSCL HEART DISEASE OF [place] CORONARY ARTERY W/O ANG PCTRS (5) History of lung cancer Assessment/Plan: -CT chest reviewed -Scarring vs mass in the hilum Problems reviewed: Yes Code(s): Z85.118 - PERSONAL HISTORY OF MALIGNANT NEOPLASM OF BRONCHUS AND LUNG
--- NOTE | 2020-05-17 14:13 | PN ---
Progress Note, Physician Chief Complaint: No new complaints History of Present Illness: This is a 65 year old male with a PMH of COPD, smoking, lung ca s/p radiation, PVD, and CAD. Recent admission to [facility] 10/27/2019 for an inferior STEMI and underwent PCI with RANJIT x2 placed in the RCA and 11/12/2019 for staged PCI of the mid-LAD. He presented this admission with SOB, fever and chills. He had a large pleural effusion and underwent thoracentesis. Echocardiogram was done on 05/10/2020 and showed an EF of 45% with inferior akinesis, mild MR, and moderate AI. Nuclear stress test 08/26/2019 Normal EF with no ischemic changes. Now may require a biopsy for a left upper lobe pleural based mass. - Current Medication List Current Medications: Active Medications Acetaminophen (Tylenol -) 650 mg PO Q4H PRN PRN Reason: PAIN Albuterol Sulfate (Ventolin Hfa Inhaler -) 1 puff IH Q4H PRN PRN Reason: SHORT OF BREATH/WHEEZING Last Admin: 05/12/20 10:03 Dose: 1 puff Documented by: Aspirin (Ecotrin -) 81 mg PO DAILY [facility] Last Admin: 05/17/20 10:40 Dose: 81 mg Documented by: Atorvastatin Calcium (Lipitor -) 80 mg PO HS [facility] Last Admin: 05/16/20 21:26 Dose: 80 mg Documented by: Metoprolol Succinate (Toprol Xl -) 50 mg PO DAILY [facility] Last Admin: 05/17/20 10:40 Dose: 50 mg Documented by: Ticagrelor (Brilinta -) 90 mg PO BID [facility] Last Admin: 05/17/20 10:40 Dose: 90 mg Documented by: - Objective Vital Signs: Vital Signs Temperature 98.3 F 05/17/20 10:33 Pulse Rate 99 H 05/17/20 10:33 Respiratory Rate 18 05/17/20 10:33 Blood Pressure 106/55 L 05/17/20 10:33 O2 Sat by Pulse Oximetry (%) 99 05/17/20 13:15 Constitutional: Yes: No Distress Eyes: Yes: WNL HENT: Yes: WNL, Nasal Congestion Neck: Yes: WNL Cardiovascular: Yes: Regular Rate and Rhythm, S1, S2 Respiratory: Yes: Diminished (Chest tube) Gastrointestinal: Yes: Soft Edema: No Neurological: Yes: Alert, Oriented Labs: CBC, BMP 05/13/20 10:45 05/13/20 10:45 INR, PTT INR 1.23 (0.83-1.09) H 05/09/20 11:10 Assessment/Plan 65 year old male with a PMH of COPD, smoking, lung ca s/p radiation, PVD, and CAD. Recent admission to [facility] 10/27/2019 for an inferior STEMI and underwent PCI with RANJIT x2 placed in the RCA and 11/12/2019 for staged PCI of the mid-LAD. He presented this admission with SOB, fever and chills. He had a large pleural effusion and underwent thoracentesis. Echocardiogram was done on 05/10/2020 and showed an EF of 45% with inferior akinesis, mild MR, and moderate AI. Nuclear stress test 08/26/2019 Normal EF with no ischemic changes. Now may require a biopsy for a left upper lobe pleural based mass Now 6 months since his last RANJIT Therefore can hold DAPT (Brilinta and ASA) for one week for a pleural biopsy as benefits of this diagnostic study outweighs the risks of stent thrombosis. Restart DAPT (at least aspirin) as soon as it is deemed safe from a bleeding point of view. Ideally he should complete 12 months of DAPT s/p [place] with stents. Continue Metoprolol XL 50 mg daily
[2020-05-17] MEDS: ATORVASTATIN CA 80 MG TABLET (FP) PO SCH (21:00)
[2020-05-18] MEDS ORDERED: PIPERACILLIN/TAZOBACTAM 3.375 GM VIAL IVPB ONE ×2 (01:38→09:04)
[2020-05-18] MEDS ORDERED: DEXTROSE 5%-WATER - 50 ML IVPB ONE ×2 (01:39→09:04)
[2020-05-18] MEDS: PIPERACILLIN/TAZOB 3.375 GM 3.375 GM in DEXTROSE 5%-WATER - 50 ML IVPB SCH ×2 (02:51→09:33)
--- NOTE | 2020-05-18 07:52 | PN ---
Progress Note, Physician History of Present Illness: pulmonary alert,comfortable oob-chair,-sob. - Current Medication List Current Medications: Active Medications Acetaminophen (Tylenol -) 650 mg PO Q4H PRN PRN Reason: PAIN Albuterol Sulfate (Ventolin Hfa Inhaler -) 1 puff IH Q4H PRN PRN Reason: SHORT OF BREATH/WHEEZING Last Admin: 05/12/20 10:03 Dose: 1 puff Documented by: Aspirin (Ecotrin -) 81 mg PO DAILY [facility] Last Admin: 05/17/20 10:40 Dose: 81 mg Documented by: Atorvastatin Calcium (Lipitor -) 80 mg PO HS [facility] Last Admin: 05/17/20 21:00 Dose: 80 mg Documented by: Piperacillin Sod/Tazobactam (Sod 3.375 gm/ Dextrose) 50 mls @ 100 mls/hr IVPB Q8H-IV [facility]; Protocol Last Admin: 05/18/20 02:51 Dose: 100 mls/hr Documented by: Metoprolol Succinate (Toprol Xl -) 50 mg PO DAILY [facility] Last Admin: 05/17/20 10:40 Dose: 50 mg Documented by: Ticagrelor (Brilinta -) 90 mg PO BID [facility] Last Admin: 05/17/20 21:00 Dose: 90 mg Documented by: - Objective Vital Signs: Vital Signs Temperature 97.9 F 05/18/20 06:00 Pulse Rate 81 05/18/20 06:00 Respiratory Rate 19 05/18/20 06:00 Blood Pressure 99/58 L 05/18/20 06:00 O2 Sat by Pulse Oximetry (%) 99 05/17/20 22:00 Constitutional: Yes: Well Nourished, Calm Eyes: Yes: WNL HENT: Yes: WNL Neck: Yes: WNL Cardiovascular: Yes: Regular Rate and Rhythm, S1, S2 Respiratory: Yes: Rales (crackles on r) Gastrointestinal: Yes: Normal Bowel Sounds, Soft Extremities: Yes: WNL Edema: No Labs: Problem List - Problems (1) COPD (chronic obstructive pulmonary disease) Code(s): J44.9 - CHRONIC OBSTRUCTIVE PULMONARY DISEASE, UNSPECIFIED (2) CAD (coronary artery disease) Code(s): I25.10 - ATHSCL HEART DISEASE OF [place] CORONARY ARTERY W/O ANG PCTRS (3) History of lung cancer Code(s): Z85.118 - PERSONAL HISTORY OF MALIGNANT NEOPLASM OF BRONCHUS AND LUNG (4) Pleural effusion Code(s): J90 - PLEURAL EFFUSION, NOT ELSEWHERE CLASSIFIED (5) Pneumonia Code(s): J18.9 - PNEUMONIA, UNSPECIFIED ORGANISM Qualifiers: Pneumonia type: due to unspecified organism Laterality: right Lung location: upper lobe of lung Qualified Code(s): J18.9 - Pneumonia, unspecified organism (6) Shortness of breath Code(s): R06.02 - SHORTNESS OF BREATH Assessment/Plan IMP DYSPNEA/HYPOXEMIA IMPROVED LARGE LEFT PLEURAL EFFUSION EXUDATE R/O MALIGNANT H/O LUNG CA S/P RT RUL INFILTRATE ? PNEUMONIA, COPD ASHD S/P STENTS MEDIASTINAL ADENOPATHY [place] PLEURAL BASED PLAN SUPPLEMENTAL O2 ABX PER ID INHALED BRONCHODILATORS MONITOR CHEST TUBE DRAINAGE PLEURAL FLUID CYTOLOGY -MALIGNANCY COVID PCR NEGATIVE IR FOR BX [place] MASS DR CASTRO Problem List - Problems (1) COPD (chronic obstructive pulmonary disease) Code(s): J44.9 - CHRONIC OBSTRUCTIVE PULMONARY DISEASE, UNSPECIFIED (2) CAD (coronary artery disease) Code(s): I25.10 - ATHSCL HEART DISEASE OF [place] CORONARY ARTERY W/O ANG PCTRS (3) History of lung cancer Code(s): Z85.118 - PERSONAL HISTORY OF MALIGNANT NEOPLASM OF BRONCHUS AND LUNG (4) Pleural effusion Code(s): J90 - PLEURAL EFFUSION, NOT ELSEWHERE CLASSIFIED (5) Pneumonia Code(s): J18.9 - PNEUMONIA, UNSPECIFIED ORGANISM Qualifiers: Pneumonia type: due to unspecified organism Laterality: right Lung location: upper lobe of lung Qualified Code(s): J18.9 - Pneumonia, unspecified organism (6) Shortness of breath Code(s): R06.02 - SHORTNESS OF BREATH
--- NOTE | 2020-05-18 08:42 | PN ---
Progress Note, Physician - Current Medication List Current Medications: Active Medications Acetaminophen (Tylenol -) 650 mg PO Q4H PRN PRN Reason: PAIN Albuterol Sulfate (Ventolin Hfa Inhaler -) 1 puff IH Q4H PRN PRN Reason: SHORT OF BREATH/WHEEZING Last Admin: 05/12/20 10:03 Dose: 1 puff Documented by: Aspirin (Ecotrin -) 81 mg PO DAILY [facility] Last Admin: 05/17/20 10:40 Dose: 81 mg Documented by: Atorvastatin Calcium (Lipitor -) 80 mg PO HS [facility] Last Admin: 05/17/20 21:00 Dose: 80 mg Documented by: Piperacillin Sod/Tazobactam (Sod 3.375 gm/ Dextrose) 50 mls @ 100 mls/hr IVPB Q8H-IV [facility]; Protocol Last Admin: 05/18/20 02:51 Dose: 100 mls/hr Documented by: Metoprolol Succinate (Toprol Xl -) 50 mg PO DAILY [facility] Last Admin: 05/17/20 10:40 Dose: 50 mg Documented by: Ticagrelor (Brilinta -) 90 mg PO BID [facility] Last Admin: 05/17/20 21:00 Dose: 90 mg Documented by: - Objective Vital Signs: Vital Signs Temperature 97.9 F 05/18/20 06:00 Pulse Rate 81 05/18/20 06:00 Respiratory Rate 19 05/18/20 06:00 Blood Pressure 99/58 L 05/18/20 06:00 O2 Sat by Pulse Oximetry (%) 99 05/17/20 22:00 Cardiovascular: Yes: S1, S2 Respiratory: Yes: Diminished (improved aeration) Gastrointestinal: Yes: Normal Bowel Sounds, Soft Labs: CBC, BMP 05/13/20 10:45 05/13/20 10:45 INR, PTT INR 1.23 (0.83-1.09) H 05/09/20 11:10 Assessment/Plan Problems (1) Pleural effusion Assessment/Plan: -Furosemide 40 mg IVP once -IR pleurx--Placed-- -cxr noted--d/w pulm--consult TS--pt hesitent to do surgery but will consider--agree with biopsy -IR consult -Maybe malignant -await results -Pulmonary and cardiology consult appreciated -O2 to keep SpO2>90% Problems reviewed: Yes Code(s): J90 - PLEURAL EFFUSION, NOT ELSEWHERE CLASSIFIED (2) Pneumonia -Abx -ID consult appreciated Code(s): J18.9 - PNEUMONIA, UNSPECIFIED ORGANISM Qualifiers: Pneumonia type: due to unspecified organism Laterality: right Lung location: upper lobe of lung Qualified Code(s): J18.9 - Pneumonia, unspecified organism (3) Shortness of breath Problems reviewed: Yes Code(s): R06.02 - SHORTNESS OF BREATH (4) CAD (coronary artery disease) Assessment/Plan: -hold Brilinta for biopsy -Resume statin -Cardiology consult Problems reviewed: Yes Code(s): I25.10 - ATHSCL HEART DISEASE OF [place] CORONARY ARTERY W/O ANG PCTRS (5) History of lung cancer Assessment/Plan: -CT chest reviewed -Scarring vs mass in the hilum Problems reviewed: Yes Code(s): Z85.118 - PERSONAL HISTORY OF MALIGNANT NEOPLASM OF BRONCHUS AND LUNG
[2020-05-18] MEDS: TICAGRELOR 90 MG TABLET PO SCH (09:29)
[2020-05-18] MEDS: ASPIRIN COATED 81 MG TABLET.EC PO SCH (09:30)
--- NOTE | 2020-05-18 11:08 | PN ---
Physical Exam: SUBJECTIVE: Patient seen and examined. Pt. endorses improved breathing. Pt. denies any complaints. Pt. inquiring if he has to stay in the hospital until Biopsy. OBJECTIVE: Vital Signs Period Temp Pulse Resp BP Sys/Hernandez Pulse Ox Last 24 Hr 97.6 F-98.8 F 81-97 18-20 95-108/47-62 99-99 GENERAL: Awake, alert, and fully oriented, in no acute distress. HEAD: Normal with no signs of trauma. EYES: Extraocular movements intact, sclera anicteric, conjunctiva clear. EARS, NOSE, THROAT: Ears normal, nares patent, oropharynx clear without exudates. Moist mucous membranes. NECK: Normal range of motion, supple without lymphadenopathy, JVD, or masses. LUNGS: Decreased breath sounds on the Left compared to the right. No wheezing or crackles HEART: Regular rate and rhythm, normal S1 and S2 without murmur ABDOMEN: Soft, nontender, not distended, normoactive bowel sounds, no guarding, no rebound UPPER EXTREMITIES: warm, well-perfused. No cyanosis. No peripheral edema. LOWER EXTREMITIES: 2+ dorsal pedal pulses, warm, well-perfused. No calf tenderness. No peripheral edema. NEUROLOGICAL: No focal deficits, Gait not assessed PSYCHIATRIC: Cooperative. Good eye contact. Appropriate mood and affect. SKIN: Warm, dry Laboratory Results - last 24 hr 05/09/20 05/17/20 05/17/20 17:12 12:08 12:08 B-Natriuretic Peptide 1075.5 H Fluid Cholesterol 68 SARS-CoV-2 Ab Interp Non-reactive Active Medications Generic Name Dose Route Start Last Admin Trade Name Freq PRN Reason Stop Dose Admin Acetaminophen 650 mg 05/09/20 17:47 Tylenol - PO Q4H PRN PAIN Albuterol Sulfate 1 puff 05/10/20 06:20 05/12/20 10:03 Ventolin Hfa Inhaler - IH 1 puff Q4H PRN Administration SHORT OF BREATH/WHEEZING Aspirin 81 mg 05/10/20 10:00 05/18/20 09:30 Ecotrin - PO Not Given DAILY [facility] Atorvastatin Calcium 80 mg 05/10/20 22:00 05/17/20 21:00 Lipitor - PO 80 mg HS [facility] Administration Piperacillin Sod/Tazobactam 50 mls @ 100 mls/hr 05/17/20 18:00 05/18/20 09:33 Sod 3.375 gm/ Dextrose IVPB 100 mls/hr Q8H-IV [facility] Administration Protocol Metoprolol Succinate 50 mg 05/10/20 10:00 05/18/20 09:32 Toprol Xl - PO 50 mg DAILY [facility] Administration Ticagrelor 90 mg 05/09/20 22:00 05/18/20 09:29 Brilinta - PO Not Given BID [facility] ASSESSMENT/PLAN: Pt. is a 65 y.o. M w/ PMHx. of HTN, HLD, CAD (s/p [place] and 4 stents 10/28 and 11/29) and Hx. of Lung CA (Ddx. 6 years ago s/p RT x 6-7 treatments last 2 years ago @ [facility] [place]) presents for shortness of breath over the last few days. #Hx. of Lung CA f/u Rpt. imaging of chest to assess for re-accumulation of fluid, if increased consider group home drain vs. Metastatic workup Fluid cytology non-diagnostic for malignancy however this can be the case in spite of malignancy. obtain records from [facility] in [place] about treatment Hold Brillinta and ASA for biopsy of pleural nodule #HTN #CAD #HLD c/w home medications #DVT Ppx. SCDs Dispo: We will continue to follow the patient. Thank you for this consultative opportunity. Visit type - Emergency Visit Emergency Visit: Yes ED Registration Date: 05/09/20 Care time: The patient presented to the Emergency Department on the above date and was hospitalized for further evaluation of their emergent condition. - New Patient This patient is new to me today: No - Critical Care Critical Care patient: No - Discharge Referral Referred to [facility] Med P.C.: No ATTENDING PHYSICIAN STATEMENT I saw and evaluated the patient. I reviewed the resident's note and discussed the case with the resident. I agree with the resident's findings and plan as documented. SUBJECTIVE: OBJECTIVE: ASSESSMENT AND PLAN:
--- NOTE | 2020-05-18 13:56 | PN ---
Progress Note (short form) - Note Progress Note: no complaints looks comfortable cytology negative from effusion still with chest tube Vital Signs Period Temp Pulse Resp BP Sys/Hernandez Pulse Ox Last 24 Hr 97.6 F-98.8 F 81-97 18-20 95-108/47-62 96-99 cor-rrr lungs clear, decreased at left base chest tube abd soft,nt ext no edema CBC, BMP 05/13/20 10:45 05/13/20 10:45 Microbiology 05/09/20 11:30 Blood - Peripheral Venous Blood Culture - Final NO GROWTH AFTER 5 DAYS INCUBATION 05/11/20 16:30 Urine For Antigen Detection Legionella Antigen - Final 05/11/20 16:30 Urine For Antigen Detection Streptococcus pneumoniae Antigen (M - Final 05/09/20 17:12 Pleural Fluid Gram Stain - Final 05/09/20 17:12 Pleural Fluid Body Fluid Culture - Final NO GROWTH OF AEROBIC ORGANISMS AFTER 48 HOURS INCUBATION 05/09/20 17:12 Pleural Fluid Anaerobic Culture - Final NO ANAEROBES WERE ISOLATED 05/09/20 17:12 Pleural Fluid AFB Smear Concentration - Final 05/09/20 17:12 Pleural Fluid Mycobacterial Culture - Preliminary 05/09/20 17:12 Pleural Fluid NOE Preparation - Preliminary 05/09/20 17:12 Pleural Fluid Fungal Culture - Preliminary 05/09/20 15:30 Urine - Urine Clean Catch Urine Culture - Final NO GROWTH OBTAINED covid pcr negative a/p RUL infiltrate -?aspiration-resolved, d/c zosyn leulkocytosis and cough resolved left pleural effusion- s/p chest tube recent ND with stents prolonged qtc- greater then .5 evaluation of left lung nodule per pulmonary check quantiferon Problem List - Problems (1) Pneumonia Code(s): J18.9 - PNEUMONIA, UNSPECIFIED ORGANISM Qualifiers: Pneumonia type: due to unspecified organism Laterality: right Lung location: upper lobe of lung Qualified Code(s): J18.9 - Pneumonia, unspecified organism (2) Pleural effusion Code(s): J90 - PLEURAL EFFUSION, NOT ELSEWHERE CLASSIFIED (3) CAD (coronary artery disease) Code(s): I25.10 - ATHSCL HEART DISEASE OF [place] CORONARY ARTERY W/O ANG PCTRS (4) COPD (chronic obstructive pulmonary disease) Code(s): J44.9 - CHRONIC OBSTRUCTIVE PULMONARY DISEASE, UNSPECIFIED (5) History of lung cancer Code(s): Z85.118 - PERSONAL HISTORY OF MALIGNANT NEOPLASM OF BRONCHUS AND LUNG
--- NOTE | 2020-05-18 17:50 | PN ---
Teaching Attending Note Name of Resident: Robert Keating ATTENDING PHYSICIAN STATEMENT I saw and evaluated the patient. I reviewed the resident's note and discussed the case with the resident. I agree with the resident's findings and plan as documented. SUBJECTIVE: Awaiting bx of L. pleural nodule. Off asa and brilinta. Remains with L. chest tube to pleur vac. no cp or sob. Pleural fluid cytology non-dx. OBJECTIVE: oct bs L. ASSESSMENT AND PLAN: 65 y.o. M w/ PMHx. of HTN, HLD, CAD (s/p [place] and 4 stents 10/28 and 11/29) H/o SCLCa, s/p RTX approx 2 years ago. Now with sob, L. eff, L. pleural mass, suspect recurrent disease. -c/w current meds -to f/u bx
[2020-05-18] MEDS: ATORVASTATIN CA 80 MG TABLET (FP) PO SCH (21:04)
--- NOTE | 2020-05-19 07:53 | PN ---
Progress Note, Physician History of Present Illness: pulmonary alert,comfortable on nasal o2.pt scheduled fo ct guided bx mary mass on friday - Current Medication List Current Medications: Active Medications Acetaminophen (Tylenol -) 650 mg PO Q4H PRN PRN Reason: PAIN Albuterol Sulfate (Ventolin Hfa Inhaler -) 1 puff IH Q4H PRN PRN Reason: SHORT OF BREATH/WHEEZING Last Admin: 05/12/20 10:03 Dose: 1 puff Documented by: Aspirin (Ecotrin -) 81 mg PO DAILY [facility] Last Admin: 05/18/20 09:30 Dose: Not Given Documented by: Atorvastatin Calcium (Lipitor -) 80 mg PO HS [facility] Last Admin: 05/18/20 21:04 Dose: 80 mg Documented by: Metoprolol Succinate (Toprol Xl -) 50 mg PO DAILY [facility] Last Admin: 05/18/20 09:32 Dose: 50 mg Documented by: Ticagrelor (Brilinta -) 90 mg PO BID [facility] Last Admin: 05/18/20 09:29 Dose: Not Given Documented by: - Objective Vital Signs: Vital Signs Temperature 98.1 F 05/19/20 06:00 Pulse Rate 90 05/19/20 06:00 Respiratory Rate 18 05/19/20 06:00 Blood Pressure 97/56 L 05/19/20 06:00 O2 Sat by Pulse Oximetry (%) 97 05/18/20 22:00 Constitutional: Yes: Calm, Thin Eyes: Yes: WNL HENT: Yes: WNL Neck: Yes: WNL Cardiovascular: Yes: Regular Rate and Rhythm, S1, S2 Respiratory: Yes: Rales (few crackles on r) Gastrointestinal: Yes: Normal Bowel Sounds, Soft Extremities: Yes: WNL Edema: No Labs: CBC, BMP Problem List - Problems (1) COPD (chronic obstructive pulmonary disease) Code(s): J44.9 - CHRONIC OBSTRUCTIVE PULMONARY DISEASE, UNSPECIFIED (2) CAD (coronary artery disease) Code(s): I25.10 - ATHSCL HEART DISEASE OF [place] CORONARY ARTERY W/O ANG PCTRS (3) History of lung cancer Code(s): Z85.118 - PERSONAL HISTORY OF MALIGNANT NEOPLASM OF BRONCHUS AND LUNG (4) Pleural effusion Code(s): J90 - PLEURAL EFFUSION, NOT ELSEWHERE CLASSIFIED (5) Pneumonia Code(s): J18.9 - PNEUMONIA, UNSPECIFIED ORGANISM Qualifiers: Pneumonia type: due to unspecified organism Laterality: right Lung location: upper lobe of lung Qualified Code(s): J18.9 - Pneumonia, unspecified organism (6) Shortness of breath Code(s): R06.02 - SHORTNESS OF BREATH Assessment/Plan IMP DYSPNEA/HYPOXEMIA IMPROVED LARGE LEFT PLEURAL EFFUSION EXUDATE R/O MALIGNANT H/O LUNG CA S/P RT RUL INFILTRATE ? PNEUMONIA, COPD ASHD S/P STENTS MEDIASTINAL ADENOPATHY [place] PLEURAL BASED PLAN SUPPLEMENTAL O2 INHALED BRONCHODILATORS CONTINUE CHEST TUBE UNTIL BX PLEURAL FLUID CYTOLOGY -MALIGNANCY COVID PCR NEGATIVE IR FOR BX MARY MASS ON FRIDAY DR CASTRO Problem List - Problems (1) COPD (chronic obstructive pulmonary disease) Code(s): J44.9 - CHRONIC OBSTRUCTIVE PULMONARY DISEASE, UNSPECIFIED (2) CAD (coronary artery disease) Code(s): I25.10 - ATHSCL HEART DISEASE OF [place] CORONARY ARTERY W/O ANG PCTRS (3) History of lung cancer Code(s): Z85.118 - PERSONAL HISTORY OF MALIGNANT NEOPLASM OF BRONCHUS AND LUNG (4) Pleural effusion Code(s): J90 - PLEURAL EFFUSION, NOT ELSEWHERE CLASSIFIED (5) Pneumonia Code(s): J18.9 - PNEUMONIA, UNSPECIFIED ORGANISM Qualifiers: Pneumonia type: due to unspecified organism Laterality: right Lung location: upper lobe of lung Qualified Code(s): J18.9 - Pneumonia, unspecified organism (6) Shortness of breath Code(s): R06.02 - SHORTNESS OF BREATH
--- NOTE | 2020-05-19 10:50 | DS ---
Physical Examination Vital Signs: Vital Signs Temperature 98.2 F 05/19/20 08:43 Pulse Rate 95 H 05/19/20 08:43 Respiratory Rate 20 05/19/20 09:00 Blood Pressure 113/53 L 05/19/20 08:43 O2 Sat by Pulse Oximetry (%) 95 05/19/20 09:00 Labs: CBC, BMP 05/13/20 10:45 05/13/20 10:45 Discharge Summary Problems reviewed: Yes Reason For Visit: SOB PLEURAL EFFUSION PNEUMONIA Current Active Problems CAD (coronary artery disease) (Acute) COPD (chronic obstructive pulmonary disease) (Acute) History of lung cancer (Acute) Pleural effusion (Acute) Pneumonia (Acute) Shortness of breath (Acute) Hospital Course: Problems (1) Pleural effusion Assessment/Plan: -Furosemide 40 mg IVP once -IR pleurx--Placed-- -cxr noted--d/w pulm--consult TS--pt hesitent to do surgery but will consider--not sure about biopsy--will d/w -IR consult -Maybe malignant -await results -Pulmonary and cardiology consult appreciated -O2 to keep SpO2>90% Problems reviewed: Yes Code(s): J90 - PLEURAL EFFUSION, NOT ELSEWHERE CLASSIFIED (2) Pneumonia -Abx -ID consult appreciated Code(s): J18.9 - PNEUMONIA, UNSPECIFIED ORGANISM Qualifiers: Pneumonia type: due to unspecified organism Laterality: right Lung location: upper lobe of lung Qualified Code(s): J18.9 - Pneumonia, unspecified organism (3) Shortness of breath Problems reviewed: Yes Code(s): R06.02 - SHORTNESS OF BREATH (4) CAD (coronary artery disease) Assessment/Plan: -hold Brilinta for biopsy -Resume statin -Cardiology consult Problems reviewed: Yes Code(s): I25.10 - ATHSCL HEART DISEASE OF [place] CORONARY ARTERY W/O ANG PCTRS (5) History of lung cancer Assessment/Plan: -CT chest reviewed -Scarring vs mass in the hilum Problems reviewed: Yes Code(s): Z85.118 - PERSONAL HISTORY OF MALIGNANT NEOPLASM OF BRONCHUS AND LUNG Condition: Stable - Instructions Referrals: Irvin Wagner MD [Primary Care Provider] - 1 Week - Home Medications Comprehensive Discharge Medication List: Ambulatory Orders Albuterol Sulfate Inhaler - [Ventolin HFA Inhaler -] 1 puff PO PRN 05/09/20 Aspirin [ASA -] 81 mg PO DAILY 05/09/20 Atorvastatin Ca [Lipitor] 80 mg PO HS 05/09/20 Metoprolol Succinate 50 mg PO DAILY 05/09/20 Ticagrelor [Brilinta] 60 mg PO DAILY 05/09/20
[2020-05-19 11:33] LABS: BASO % 0.8 % (0-2.0); EOS % 0.7 % (0-4.5); HEMATOCRIT 41.9 % (35.4-49); HEMOGLOBIN 13.7 GM/dL (11.7-16.9); LYMPH % 13.1 % (8-40); MCHC 32.8 g/dl (32.0-35.9); MEAN CELL VOLUME 97.5 fl (80-96); MEAN PLT VOLUME 7.2 fl (7.5-11.1); MONO % 10.9 % (3.8-10.2); NEUT % 74.5 % (42.8-82.8); PLATELET COUNT 396 K/MM3 (134-434); RDW 12.8 % (11.9-15.9); WHITE BLOOD COUNT 10.5 K/mm3 (4.0-10.0)
[2020-05-19 11:59] LABS: ALBUMIN 2.7 g/dl (3.4-5.0); BILIRUBIN,TOTAL 0.4 mg/dL (0.2-1); BLOOD UREA NITROGEN 15.6 mg/dL (7-18); CALCIUM 8.9 mg/dL (8.5-10.1); CREATININE 0.9 mg/dL (0.55-1.3); POTASSIUM 4.3 mmol/L (3.5-5.1); TOT PROT 7.7 g/dl (6.4-8.2)
[2020-05-19] MEDS: ATORVASTATIN CA 80 MG TABLET (FP) PO SCH (21:43)
--- NOTE | 2020-05-20 07:03 | PN ---
Progress Note, Physician History of Present Illness: PULMONARY ALERT,COMFORTABLE,-SOB,FOR CT GUIDED BX HUMBERTO MASS ON FRIDAY - Current Medication List Current Medications: Active Medications Acetaminophen (Tylenol -) 650 mg PO Q4H PRN PRN Reason: PAIN Albuterol Sulfate (Ventolin Hfa Inhaler -) 1 puff IH Q4H PRN PRN Reason: SHORT OF BREATH/WHEEZING Last Admin: 05/12/20 10:03 Dose: 1 puff Documented by: Aspirin (Ecotrin -) 81 mg PO DAILY [facility] Last Admin: 05/18/20 09:30 Dose: Not Given Documented by: Atorvastatin Calcium (Lipitor -) 80 mg PO HS [facility] Last Admin: 05/19/20 21:43 Dose: 80 mg Documented by: Metoprolol Succinate (Toprol Xl -) 50 mg PO DAILY [facility] Last Admin: 05/19/20 09:29 Dose: 50 mg Documented by: Ticagrelor (Brilinta -) 90 mg PO BID [facility] Last Admin: 05/18/20 09:29 Dose: Not Given Documented by: - Objective Vital Signs: Vital Signs Temperature 97.4 F L 05/20/20 06:00 Pulse Rate 94 H 05/20/20 06:00 Respiratory Rate 20 05/20/20 06:00 Blood Pressure 93/56 L 05/20/20 06:00 O2 Sat by Pulse Oximetry (%) 97 05/19/20 21:00 Constitutional: Yes: Calm, Thin Eyes: Yes: WNL HENT: Yes: WNL Neck: Yes: WNL Cardiovascular: Yes: Regular Rate and Rhythm, S1, S2 Respiratory: Yes: Rales (FEW CRACKLES ON R) Gastrointestinal: Yes: Normal Bowel Sounds, Soft Extremities: Yes: WNL Edema: No Labs: CBC, BMP Problem List - Problems (1) COPD (chronic obstructive pulmonary disease) Code(s): J44.9 - CHRONIC OBSTRUCTIVE PULMONARY DISEASE, UNSPECIFIED (2) CAD (coronary artery disease) Code(s): I25.10 - ATHSCL HEART DISEASE OF [place] CORONARY ARTERY W/O ANG PCTRS (3) History of lung cancer Code(s): Z85.118 - PERSONAL HISTORY OF MALIGNANT NEOPLASM OF BRONCHUS AND LUNG (4) Pleural effusion Code(s): J90 - PLEURAL EFFUSION, NOT ELSEWHERE CLASSIFIED (5) Pneumonia Code(s): J18.9 - PNEUMONIA, UNSPECIFIED ORGANISM Qualifiers: Pneumonia type: due to unspecified organism Laterality: right Lung location: upper lobe of lung Qualified Code(s): J18.9 - Pneumonia, unspecified organism (6) Shortness of breath Code(s): R06.02 - SHORTNESS OF BREATH Assessment/Plan IMP DYSPNEA/HYPOXEMIA IMPROVED LARGE LEFT PLEURAL EFFUSION EXUDATE R/O MALIGNANT H/O LUNG CA S/P RT RUL INFILTRATE ? PNEUMONIA, COPD ASHD S/P STENTS MEDIASTINAL ADENOPATHY HUMBERTO MASS PLEURAL BASED PLAN SUPPLEMENTAL O2 INHALED BRONCHODILATORS CONTINUE CHEST TUBE UNTIL BX PLEURAL FLUID CYTOLOGY -MALIGNANCY COVID PCR NEGATIVE IR FOR BX HUMBERTO MASS ON FRIDAY DR CASTRO Problem List - Problems (1) COPD (chronic obstructive pulmonary disease) Code(s): J44.9 - CHRONIC OBSTRUCTIVE PULMONARY DISEASE, UNSPECIFIED (2) CAD (coronary artery disease) Code(s): I25.10 - ATHSCL HEART DISEASE OF [place] CORONARY ARTERY W/O ANG PCTRS (3) History of lung cancer Code(s): Z85.118 - PERSONAL HISTORY OF MALIGNANT NEOPLASM OF BRONCHUS AND LUNG (4) Pleural effusion Code(s): J90 - PLEURAL EFFUSION, NOT ELSEWHERE CLASSIFIED (5) Pneumonia Code(s): J18.9 - PNEUMONIA, UNSPECIFIED ORGANISM Qualifiers: Pneumonia type: due to unspecified organism Laterality: right Lung location: upper lobe of lung Qualified Code(s): J18.9 - Pneumonia, unspecified organism (6) Shortness of breath Code(s): R06.02 - SHORTNESS OF BREATH
--- NOTE | 2020-05-20 10:17 | PN.HO ---
Progress Note (short form) - Note Progress Note: PAtient seen and examined Denies any specific complaints AFVSS Cor: RSR, No murmurs, No gallops Lungs: Clear to P&A Abd: Soft, Normal bowel sounds, No organomegaly Ext:No significant edema LAbs/MEds reviewed A/P 65 y.o. M w/ PMHx. of HTN, HLD, CAD (s/p AR and 4 stents 10/28 and 11/29) H/oLCa, s/p SBR approx 2 years ago. Now with sob, L. eff, L. pleural mass, suspect recurrent disease. For CT guided biopsy of HUMBERTO mass on 05/22
--- NOTE | 2020-05-20 14:25 | PN ---
Progress Note, Physician Chief Complaint: EVENTS AND NOTES REVIEWED PATIENT IN CHAIR SITTING UP EATING BREAKFAST LUTHERS CHEST PAIN CHEST TUBE IN PLACE - Current Medication List Current Medications: Active Medications Acetaminophen (Tylenol -) 650 mg PO Q4H PRN PRN Reason: PAIN Albuterol Sulfate (Ventolin Hfa Inhaler -) 1 puff IH Q4H PRN PRN Reason: SHORT OF BREATH/WHEEZING Last Admin: 05/12/20 10:03 Dose: 1 puff Documented by: Aspirin (Ecotrin -) 81 mg PO DAILY [facility] Last Admin: 05/18/20 09:30 Dose: Not Given Documented by: Atorvastatin Calcium (Lipitor -) 80 mg PO HS [facility] Last Admin: 05/19/20 21:43 Dose: 80 mg Documented by: Metoprolol Succinate (Toprol Xl -) 50 mg PO DAILY [facility] Last Admin: 05/20/20 11:17 Dose: 50 mg Documented by: Ticagrelor (Brilinta -) 90 mg PO BID [facility] Last Admin: 05/18/20 09:29 Dose: Not Given Documented by: - Objective Vital Signs: Vital Signs Temperature 98.9 F 05/20/20 09:39 Pulse Rate 99 H 05/20/20 09:39 Respiratory Rate 20 05/20/20 09:39 Blood Pressure 109/65 05/20/20 10:52 O2 Sat by Pulse Oximetry (%) 99 05/20/20 09:00 Constitutional: Yes: Mild Distress Cardiovascular: Yes: Regular Rate and Rhythm Respiratory: Yes: Other (CHEST TUBE IN [place] MINIMAL DRAINAGE) Gastrointestinal: Yes: Soft Genitourinary: Yes: Incontinence Musculoskeletal: Yes: Muscle Weakness Edema: No Neurological: Yes: Pre-Existing Deficit Labs: CBC, BMP 05/19/20 11:15 05/19/20 11:15 INR, PTT INR 1.23 (0.83-1.09) H 05/09/20 11:10 Problem List - Problems (1) Chest tube in place Code(s): Z96.89 - PRESENCE OF OTHER SPECIFIED FUNCTIONAL IMPLANTS (2) CAD (coronary artery disease) Code(s): I25.10 - ATHSCL HEART DISEASE OF [place] CORONARY ARTERY W/O ANG PCTRS (3) COPD (chronic obstructive pulmonary disease) Code(s): J44.9 - CHRONIC OBSTRUCTIVE PULMONARY DISEASE, UNSPECIFIED (4) History of lung cancer Code(s): Z85.118 - PERSONAL HISTORY OF MALIGNANT NEOPLASM OF BRONCHUS AND LUNG (5) Pleural effusion Code(s): J90 - PLEURAL EFFUSION, NOT ELSEWHERE CLASSIFIED (6) Pneumonia Code(s): J18.9 - PNEUMONIA, UNSPECIFIED ORGANISM Qualifiers: Pneumonia type: due to unspecified organism Laterality: right Lung location: upper lobe of lung Qualified Code(s): J18.9 - Pneumonia, unspecified organism (7) Shortness of breath Code(s): R06.02 - SHORTNESS OF BREATH Assessment/Plan EVENTS REVIEWED CHEST TUBE IN PLACE PLEURAL BIOPSY FRIDAY PAIN CONTROL SUPPORT DVT PROPHYLAXIS OOB TO CHAIR
[2020-05-20] MEDS: ACETAMINOPHEN 325 MG TABLET (FP) PO PRN (21:31)
[2020-05-20] MEDS: ATORVASTATIN CA 80 MG TABLET (FP) PO SCH (21:32)
--- NOTE | 2020-05-21 07:40 | PN ---
Progress Note, Physician History of Present Illness: PULMONARY ALERT,COMFORTABLE OOB-CHAIR,C/O MILD SOB - Current Medication List Current Medications: Active Medications Acetaminophen (Tylenol -) 650 mg PO Q4H PRN PRN Reason: PAIN Last Admin: 05/20/20 21:31 Dose: 650 mg Documented by: Albuterol Sulfate (Ventolin Hfa Inhaler -) 1 puff IH Q4H PRN PRN Reason: SHORT OF BREATH/WHEEZING Last Admin: 05/12/20 10:03 Dose: 1 puff Documented by: Aspirin (Ecotrin -) 81 mg PO DAILY [facility] Last Admin: 05/18/20 09:30 Dose: Not Given Documented by: Atorvastatin Calcium (Lipitor -) 80 mg PO HS [facility] Last Admin: 05/20/20 21:32 Dose: 80 mg Documented by: Metoprolol Succinate (Toprol Xl -) 50 mg PO DAILY [facility] Last Admin: 05/20/20 11:17 Dose: 50 mg Documented by: Ticagrelor (Brilinta -) 90 mg PO BID [facility] Last Admin: 05/18/20 09:29 Dose: Not Given Documented by: - Objective Vital Signs: Vital Signs Temperature 98.2 F 05/21/20 06:00 Pulse Rate 84 05/21/20 06:00 Respiratory Rate 20 05/21/20 06:00 Blood Pressure 104/58 L 05/21/20 06:00 O2 Sat by Pulse Oximetry (%) 99 05/20/20 21:00 Constitutional: Yes: Well Nourished, Calm Eyes: Yes: WNL HENT: Yes: WNL Neck: Yes: WNL Cardiovascular: Yes: Regular Rate and Rhythm, S1, S2 Respiratory: Yes: Rales (FEW CRACKLES ON R) Gastrointestinal: Yes: Normal Bowel Sounds, Soft Extremities: Yes: WNL Edema: No Labs: CBC, BMP Problem List - Problems (1) COPD (chronic obstructive pulmonary disease) Code(s): J44.9 - CHRONIC OBSTRUCTIVE PULMONARY DISEASE, UNSPECIFIED (2) CAD (coronary artery disease) Code(s): I25.10 - ATHSCL HEART DISEASE OF [place] CORONARY ARTERY W/O ANG PCTRS (3) History of lung cancer Code(s): Z85.118 - PERSONAL HISTORY OF MALIGNANT NEOPLASM OF BRONCHUS AND LUNG (4) Pleural effusion Code(s): J90 - PLEURAL EFFUSION, NOT ELSEWHERE CLASSIFIED (5) Pneumonia Code(s): J18.9 - PNEUMONIA, UNSPECIFIED ORGANISM Qualifiers: Pneumonia type: due to unspecified organism Laterality: right Lung location: upper lobe of lung Qualified Code(s): J18.9 - Pneumonia, unspecified organism (6) Shortness of breath Code(s): R06.02 - SHORTNESS OF BREATH Assessment/Plan IMP DYSPNEA/HYPOXEMIA IMPROVED LARGE LEFT PLEURAL EFFUSION EXUDATE R/O MALIGNANT H/O LUNG CA S/P RT RUL INFILTRATE ? PNEUMONIA, COPD ASHD S/P STENTS MEDIASTINAL ADENOPATHY HUMBERTO MASS PLEURAL BASED PLAN SUPPLEMENTAL O2 INHALED BRONCHODILATORS CONTINUE CHEST TUBE UNTIL BX PLEURAL FLUID CYTOLOGY -MALIGNANCY COVID PCR NEGATIVE IR FOR BX HUMBERTO MASS ON FRIDAY DR CASTRO Problem List - Problems (1) COPD (chronic obstructive pulmonary disease) Code(s): J44.9 - CHRONIC OBSTRUCTIVE PULMONARY DISEASE, UNSPECIFIED (2) CAD (coronary artery disease) Code(s): I25.10 - ATHSCL HEART DISEASE OF [place] CORONARY ARTERY W/O ANG PCTRS (3) History of lung cancer Code(s): Z85.118 - PERSONAL HISTORY OF MALIGNANT NEOPLASM OF BRONCHUS AND LUNG (4) Pleural effusion Code(s): J90 - PLEURAL EFFUSION, NOT ELSEWHERE CLASSIFIED (5) Pneumonia Code(s): J18.9 - PNEUMONIA, UNSPECIFIED ORGANISM Qualifiers: Pneumonia type: due to unspecified organism Laterality: right Lung location: upper lobe of lung Qualified Code(s): J18.9 - Pneumonia, unspecified organism (6) Shortness of breath Code(s): R06.02 - SHORTNESS OF BREATH
--- NOTE | 2020-05-21 10:56 | PN ---
Progress Note, Physician Chief Complaint: AWAKE ALERT DENIES CHEST PAIN OR SOB - Current Medication List Current Medications: Active Medications Acetaminophen (Tylenol -) 650 mg PO Q4H PRN PRN Reason: PAIN Last Admin: 05/20/20 21:31 Dose: 650 mg Documented by: Albuterol Sulfate (Ventolin Hfa Inhaler -) 1 puff IH Q4H PRN PRN Reason: SHORT OF BREATH/WHEEZING Last Admin: 05/12/20 10:03 Dose: 1 puff Documented by: Aspirin (Ecotrin -) 81 mg PO DAILY [facility] Last Admin: 05/18/20 09:30 Dose: Not Given Documented by: Atorvastatin Calcium (Lipitor -) 80 mg PO HS [facility] Last Admin: 05/20/20 21:32 Dose: 80 mg Documented by: Metoprolol Succinate (Toprol Xl -) 50 mg PO DAILY [facility] Last Admin: 05/21/20 09:37 Dose: 50 mg Documented by: Ticagrelor (Brilinta -) 90 mg PO BID [facility] Last Admin: 05/18/20 09:29 Dose: Not Given Documented by: - Objective Vital Signs: Vital Signs Temperature 98.2 F 05/21/20 06:00 Pulse Rate 84 05/21/20 06:00 Respiratory Rate 20 05/21/20 06:00 Blood Pressure 104/58 L 05/21/20 06:00 O2 Sat by Pulse Oximetry (%) 99 05/20/20 21:00 Constitutional: Yes: Mild Distress Cardiovascular: Yes: Regular Rate and Rhythm Respiratory: Yes: On Nasal O2 (CHEST TUBE TO DRAIN MINIMAL DISCHARGE), Other Gastrointestinal: Yes: Soft Genitourinary: Yes: WNL Musculoskeletal: Yes: Muscle Weakness Labs: CBC, BMP 05/19/20 11:15 05/19/20 11:15 INR, PTT INR 1.23 (0.83-1.09) H 05/09/20 11:10 Problem List - Problems (1) Chest tube in place Code(s): Z96.89 - PRESENCE OF OTHER SPECIFIED FUNCTIONAL IMPLANTS (2) CAD (coronary artery disease) Code(s): I25.10 - ATHSCL HEART DISEASE OF [place] CORONARY ARTERY W/O ANG PCTRS (3) COPD (chronic obstructive pulmonary disease) Code(s): J44.9 - CHRONIC OBSTRUCTIVE PULMONARY DISEASE, UNSPECIFIED (4) History of lung cancer Code(s): Z85.118 - PERSONAL HISTORY OF MALIGNANT NEOPLASM OF BRONCHUS AND LUNG (5) Pleural effusion Code(s): J90 - PLEURAL EFFUSION, NOT ELSEWHERE CLASSIFIED (6) Pneumonia Code(s): J18.9 - PNEUMONIA, UNSPECIFIED ORGANISM Qualifiers: Pneumonia type: due to unspecified organism Laterality: right Lung location: upper lobe of lung Qualified Code(s): J18.9 - Pneumonia, unspecified organism (7) Shortness of breath Code(s): R06.02 - SHORTNESS OF BREATH Assessment/Plan EVENTS REVIEWED CHEST TUBE IN PLACE PLEURAL BIOPSY FRIDAY BRILLINTA ON HOLD PAIN CONTROL 02 SUPPORT DVT PROPHYLAXIS OOB TO CHAIR
[2020-05-21] MEDS: ATORVASTATIN CA 80 MG TABLET (FP) PO SCH (21:08)
[2020-05-22 07:19] LABS: HEMOGLOBIN 12.8 GM/dL (11.7-16.9); MCH 32.4 pg (25.7-33.7); MCHC 33.6 g/dl (32.0-35.9); MEAN CELL VOLUME 96.4 fl (80-96); MEAN PLT VOLUME 8.3 fl (7.5-11.1); PLATELET COUNT 345 K/MM3 (134-434); RBC 3.94 M/mm3 (4.00-5.60); RDW 12.7 % (11.9-15.9); WHITE BLOOD COUNT 11.8 K/mm3 (4.0-10.0)
[2020-05-22 07:24] LABS: INR 1.21 (0.83-1.09); PROTHROMBIN TIME (PATIENT) 14.3 SEC (9.7-13.0)
[2020-05-22 07:40] LABS: BLOOD UREA NITROGEN 16.8 mg/dL (7-18); CREATININE 0.9 mg/dL (0.55-1.3); POTASSIUM 4.5 mmol/L (3.5-5.1)
--- NOTE | 2020-05-22 08:46 | PN ---
Progress Note, Physician - Current Medication List Current Medications: Active Medications Acetaminophen (Tylenol -) 650 mg PO Q4H PRN PRN Reason: PAIN Last Admin: 05/20/20 21:31 Dose: 650 mg Documented by: Albuterol Sulfate (Ventolin Hfa Inhaler -) 1 puff IH Q4H PRN PRN Reason: SHORT OF BREATH/WHEEZING Last Admin: 05/12/20 10:03 Dose: 1 puff Documented by: Aspirin (Ecotrin -) 81 mg PO DAILY [facility] Last Admin: 05/18/20 09:30 Dose: Not Given Documented by: Atorvastatin Calcium (Lipitor -) 80 mg PO HS [facility] Last Admin: 05/21/20 21:08 Dose: 80 mg Documented by: Metoprolol Succinate (Toprol Xl -) 50 mg PO DAILY [facility] Last Admin: 05/21/20 09:37 Dose: 50 mg Documented by: Ticagrelor (Brilinta -) 90 mg PO BID [facility] Last Admin: 05/18/20 09:29 Dose: Not Given Documented by: - Objective Vital Signs: Vital Signs Temperature 98.1 F 05/22/20 06:00 Pulse Rate 103 H 05/22/20 06:00 Respiratory Rate 20 05/22/20 06:00 Blood Pressure 114/62 05/22/20 06:00 O2 Sat by Pulse Oximetry (%) 96 05/21/20 21:00 Cardiovascular: Yes: Regular Rate and Rhythm Respiratory: Yes: Diminished Gastrointestinal: Yes: Normal Bowel Sounds, Soft Labs: CBC, BMP 05/22/20 05:45 05/22/20 05:45 INR, PTT INR 1.21 (0.83-1.09) H 05/22/20 05:45 Assessment/Plan Problems (1) Pleural effusion Assessment/Plan: -Furosemide 40 mg IVP once -IR pleurx--Placed-- -cxr noted--d/w pulm--consult TS--pt hesitent to do surgery but will consider--agree with biopsy -IR consult--PLEURAL BIOPSY -Maybe malignant -await results -Pulmonary and cardiology consult appreciated -O2 to keep SpO2>90% Problems reviewed: Yes Code(s): J90 - PLEURAL EFFUSION, NOT ELSEWHERE CLASSIFIED (2) Pneumonia -Abx -ID consult appreciated Code(s): J18.9 - PNEUMONIA, UNSPECIFIED ORGANISM Qualifiers: Pneumonia type: due to unspecified organism Laterality: right Lung location: upper lobe of lung Qualified Code(s): J18.9 - Pneumonia, unspecified organism (3) Shortness of breath Problems reviewed: Yes Code(s): R06.02 - SHORTNESS OF BREATH (4) CAD (coronary artery disease) Assessment/Plan: -hold Brilinta for biopsy -Resume statin -Cardiology consult Problems reviewed: Yes Code(s): I25.10 - ATHSCL HEART DISEASE OF [place] CORONARY ARTERY W/O ANG PCTRS (5) History of lung cancer Assessment/Plan: -CT chest reviewed -Scarring vs mass in the hilum Problems reviewed: Yes Code(s): Z85.118 - PERSONAL HISTORY OF MALIGNANT NEOPLASM OF BRONCHUS AND LUNG
--- NOTE | 2020-05-22 13:21 | PN ---
Progress Note (short form) - Note Progress Note: PULMONARY For CT guided needle biopsy. Vital Signs Period Temp Pulse Resp BP Sys/Hernandez Pulse Ox Last 24 Hr 98.1 F-99.7 F 99-105 20-31 94-114/49-62 95-98 Gen: NAD at rest Heart: RRR Lung: decreased breath sounds at the bases Abd: soft, nontender Ext: no edema CBC, BMP 05/22/20 05:45 05/22/20 05:45 Active Medications Acetaminophen (Tylenol -) 650 mg PO Q4H PRN PRN Reason: PAIN Last Admin: 05/20/20 21:31 Dose: 650 mg Documented by: Albuterol Sulfate (Ventolin Hfa Inhaler -) 1 puff IH Q4H PRN PRN Reason: SHORT OF BREATH/WHEEZING Last Admin: 05/12/20 10:03 Dose: 1 puff Documented by: Aspirin (Ecotrin -) 81 mg PO DAILY [facility] Last Admin: 05/18/20 09:30 Dose: Not Given Documented by: Atorvastatin Calcium (Lipitor -) 80 mg PO HS [facility] Last Admin: 05/21/20 21:08 Dose: 80 mg Documented by: Metoprolol Succinate (Toprol Xl -) 50 mg PO DAILY [facility] Last Admin: 05/22/20 09:05 Dose: Not Given Documented by: Ticagrelor (Brilinta -) 90 mg PO BID [facility] Last Admin: 05/18/20 09:29 Dose: Not Given Documented by: A/P Pneumonia Left Pleural Effusion - Exudative suspect malignant h/o Lung Ca COPD CAD - for CT guided biopsy - completed antibiotics - O2 as needed - DVT prophylaxis
[2020-05-22] MEDS: ACETAMINOPHEN 325 MG TABLET (FP) PO PRN (15:29)
[2020-05-22] MEDS ORDERED: TICAGRELOR 90 MG TABLET PO ONE (17:00)
[2020-05-22] MEDS ORDERED: KETOROLAC TROMETHAMINE 15 MG/ML VIAL IVPUSH ONE (17:30)
[2020-05-22] MEDS: ATORVASTATIN CA 80 MG TABLET (FP) PO SCH (21:15)
[2020-05-23] MEDS ORDERED: ALBUTEROL SO4 2.5/IPRATROPIUM 0.5 INH SOL 3 ML VIAL.NEB. NEB ONE (05:01)
[2020-05-23] MEDS ORDERED: guaiFENesin 200 MG/10 ML 10 ML UNIT-DOSE CUPS PO ONE (06:00)
--- NOTE | 2020-05-23 08:40 | DS ---
Physical Examination Vital Signs: Vital Signs Temperature 98.9 F 05/23/20 06:00 Pulse Rate 123 H 05/23/20 06:00 Respiratory Rate 20 05/23/20 06:00 Blood Pressure 102/63 05/23/20 06:00 O2 Sat by Pulse Oximetry (%) 98 05/22/20 21:00 Cardiovascular: Yes: Regular Rate and Rhythm Respiratory: Yes: CTA Bilaterally Gastrointestinal: Yes: Normal Bowel Sounds, Soft Labs: CBC, BMP 05/22/20 05:45 05/22/20 05:45 Discharge Summary Problems reviewed: Yes Reason For Visit: SOB PLEURAL EFFUSION PNEUMONIA Current Active Problems CAD (coronary artery disease) (Acute) COPD (chronic obstructive pulmonary disease) (Acute) Chest tube in place (Acute) History of lung cancer (Acute) Pleural effusion (Acute) Pneumonia (Acute) Shortness of breath (Acute) Hospital Course: Problems (1) Pleural effusion Assessment/Plan: -Furosemide 40 mg IVP once -IR pleurx--Placed-- -cxr noted--d/w pulm--consult TS--pt hesitent to do surgery but will consider--agree with biopsy -IR consult--PLEURAL BIOPSY done -dc chest tube --cxr once cleared will dc home -Maybe malignant -await results -Pulmonary and cardiology consult appreciated -O2 to keep SpO2>90% Problems reviewed: Yes Code(s): J90 - PLEURAL EFFUSION, NOT ELSEWHERE CLASSIFIED (2) Pneumonia -Abx -ID consult appreciated Code(s): J18.9 - PNEUMONIA, UNSPECIFIED ORGANISM Qualifiers: Pneumonia type: due to unspecified organism Laterality: right Lung location: upper lobe of lung Qualified Code(s): J18.9 - Pneumonia, unspecified organism (3) Shortness of breath Problems reviewed: Yes Code(s): R06.02 - SHORTNESS OF BREATH (4) CAD (coronary artery disease) Assessment/Plan: -hold Brilinta for biopsy -Resume statin -Cardiology consult Problems reviewed: Yes Code(s): I25.10 - ATHSCL HEART DISEASE OF [place] CORONARY ARTERY W/O ANG PCTRS (5) History of lung cancer Assessment/Plan: -CT chest reviewed -Scarring vs mass in the hilum Problems reviewed: Yes Code(s): Z85.118 - PERSONAL HISTORY OF MALIGNANT NEOPLASM OF BRONCHUS AND LUNG Condition: Stable - Instructions Referrals: Irvin Wagner MD [Primary Care Provider] - 1 Week - Home Medications Comprehensive Discharge Medication List: Ambulatory Orders Albuterol Sulfate Inhaler - [Ventolin HFA Inhaler -] 1 puff PO PRN 05/09/20 Aspirin [ASA -] 81 mg PO DAILY 05/09/20 Atorvastatin Ca [Lipitor] 80 mg PO HS 05/09/20 Metoprolol Succinate 50 mg PO DAILY 05/09/20 Ticagrelor [Brilinta] 60 mg PO DAILY 05/09/20
[2020-05-23] MEDS: ASPIRIN COATED 81 MG TABLET.EC PO SCH (10:29)
[2020-05-23] MEDS: TICAGRELOR 90 MG TABLET PO SCH (10:29)
--- NOTE | 2020-05-23 10:37 | PN ---
Physical Exam: SUBJECTIVE: Patient seen and examined. No acute complaints. Pt. anxious to go home. OBJECTIVE: Vital Signs Period Temp Pulse Resp BP Sys/Hernandez Pulse Ox Last 24 Hr 97.7 F-98.9 F 93-123 18-41 95-129/56-92 96-100 GENERAL: Awake, alert, and fully oriented, in no acute distress. HEAD: Normal with no signs of trauma. EYES: Extraocular movements intact, sclera anicteric, conjunctiva clear. EARS, NOSE, THROAT: Ears normal, nares patent, oropharynx clear without exudates. Moist mucous membranes. NECK: Normal range of motion, supple without lymphadenopathy, JVD, or masses. LUNGS: Decreased breath sounds on the Left compared to the right. No wheezing or crackles HEART: Regular rate and rhythm, normal S1 and S2 without murmur ABDOMEN: Soft, nontender, not distended, normoactive bowel sounds, no guarding, no rebound UPPER EXTREMITIES: warm, well-perfused. No cyanosis. No peripheral edema. LOWER EXTREMITIES: 2+ dorsal pedal pulses, warm, well-perfused. No calf tenderness. No peripheral edema. NEUROLOGICAL: No focal deficits, Gait not assessed PSYCHIATRIC: Cooperative. Good eye contact. Appropriate mood and affect. SKIN: Warm, dry Active Medications Generic Name Dose Route Start Last Admin Trade Name Freq PRN Reason Stop Dose Admin Acetaminophen 650 mg 05/09/20 17:47 05/22/20 15:29 Tylenol - PO 650 mg Q4H PRN Administration PAIN Albuterol Sulfate 1 puff 05/10/20 06:20 05/12/20 10:03 Ventolin Hfa Inhaler - IH 1 puff Q4H PRN Administration SHORT OF BREATH/WHEEZING Aspirin 81 mg 05/10/20 10:00 05/23/20 10:29 Ecotrin - PO 81 mg DAILY [facility] Administration Atorvastatin Calcium 80 mg 05/10/20 22:00 05/22/20 21:15 Lipitor - PO 80 mg HS [facility] Administration Metoprolol Succinate 50 mg 05/10/20 10:05/23/20 10:36 Toprol Xl - PO Not Given DAILY [facility] Ticagrelor 90 mg 05/09/20 22:00 05/23/20 10:29 Brilinta - PO 90 mg BID [facility] Administration ASSESSMENT/PLAN: Pt. is a 65 y.o. M w/ PMHx. of HTN, HLD, CAD (s/p OR and 4 stents 10/28 and 11/29) and Hx. of Lung CA (Ddx. 6 years ago s/p RT x 6-7 treatments last 2 years ago [place]) presents for shortness of breath over the last few days. #Hx. of Lung CA Rpt. imaging of chest shows improvement, no pneumothorax, can D/C chest tube likely Fluid cytology non-diagnostic for malignancy however this can be the case in spite of malignancy. obtain records from [place] in [place] about treatment Resume Brillinta and ASA f/u pathology results of biopsy will need close f/u with Dr. Ball as outpatient #HTN #CAD #HLD c/w home medications #DVT Ppx. SCDs Visit type - Emergency Visit Emergency Visit: Yes ED Registration Date: 05/09/20 Care time: The patient presented to the Emergency Department on the above date and was hospitalized for further evaluation of their emergent condition. - New Patient This patient is new to me today: No - Critical Care Critical Care patient: No - Discharge Referral Referred to [facility] Med P.C[facility] No - Medication Review Med list reviewed for High Risk Meds patients 65 and older: Yes ATTENDING PHYSICIAN STATEMENT I saw and evaluated the patient. I reviewed the resident's note and discussed the case with the resident. I agree with the resident's findings and plan as documented. SUBJECTIVE: OBJECTIVE: ASSESSMENT AND PLAN:
--- NOTE | 2020-05-23 11:51 | PN ---
Progress Note, Physician History of Present Illness: pulmonary alert,comfortable oob-chair,-sob ,pt s/p ct guided bx mary mass tolerated procedu re well - Current Medication List Current Medications: Active Medications Acetaminophen (Tylenol -) 650 mg PO Q4H PRN PRN Reason: PAIN Last Admin: 05/22/20 15:29 Dose: 650 mg Documented by: Albuterol Sulfate (Ventolin Hfa Inhaler -) 1 puff IH Q4H PRN PRN Reason: SHORT OF BREATH/WHEEZING Last Admin: 05/12/20 10:03 Dose: 1 puff Documented by: Aspirin (Ecotrin -) 81 mg PO DAILY [facility] Last Admin: 05/23/20 10:29 Dose: 81 mg Documented by: Atorvastatin Calcium (Lipitor -) 80 mg PO HS [facility] Last Admin: 05/22/20 21:15 Dose: 80 mg Documented by: Metoprolol Succinate (Toprol Xl -) 50 mg PO DAILY [facility] Last Admin: 05/23/20 10:36 Dose: Not Given Documented by: Ticagrelor (Brilinta -) 90 mg PO BID [facility] Last Admin: 05/23/20 10:29 Dose: 90 mg Documented by: - Objective Vital Signs: Vital Signs Temperature 98.2 F 05/23/20 08:55 Pulse Rate 97 H 05/23/20 08:55 Respiratory Rate 20 05/23/20 08:55 Blood Pressure 101/63 05/23/20 08:55 O2 Sat by Pulse Oximetry (%) 97 05/23/20 08:55 Constitutional: Yes: Well Nourished, Calm Eyes: Yes: WNL HENT: Yes: WNL Neck: Yes: WNL Cardiovascular: Yes: Regular Rate and Rhythm, S1, S2 Respiratory: Yes: CTA Bilaterally Gastrointestinal: Yes: Normal Bowel Sounds, Soft Extremities: Yes: WNL Edema: No Labs: CBC, BMP 05/22/20 05:45 05/22/20 05:45 INR, PTT INR 1.21 (0.83-1.09) H 05/22/20 05:45 Problem List - Problems (1) COPD (chronic obstructive pulmonary disease) Code(s): J44.9 - CHRONIC OBSTRUCTIVE PULMONARY DISEASE, UNSPECIFIED (2) CAD (coronary artery disease) Code(s): I25.10 - ATHSCL HEART DISEASE OF [place] CORONARY ARTERY W/O ANG PCTRS (3) History of lung cancer Code(s): Z85.118 - PERSONAL HISTORY OF MALIGNANT NEOPLASM OF BRONCHUS AND LUNG (4) Pleural effusion Code(s): J90 - PLEURAL EFFUSION, NOT ELSEWHERE CLASSIFIED (5) Pneumonia Code(s): J18.9 - PNEUMONIA, UNSPECIFIED ORGANISM Qualifiers: Pneumonia type: due to unspecified organism Laterality: right Lung location: upper lobe of lung Qualified Code(s): J18.9 - Pneumonia, unspecified organism (6) Shortness of breath Code(s): R06.02 - SHORTNESS OF BREATH Assessment/Plan IMP DYSPNEA/HYPOXEMIA IMPROVED LARGE LEFT PLEURAL EFFUSION EXUDATE R/O MALIGNANT H/O LUNG CA S/P RT RUL INFILTRATE ? PNEUMONIA, COPD ASHD S/P STENTS MEDIASTINAL ADENOPATHY MARY MASS PLEURAL BASED PLAN SUPPLEMENTAL O2 INHALED BRONCHODILATORS D/C CHEST TUBE PLEURAL FLUID CYTOLOGY -MALIGNANCY COVID PCR NEGATIVE PATH PENDING DR CASTRO Problem List - Problems (1) COPD (chronic obstructive pulmonary disease) Code(s): J44.9 - CHRONIC OBSTRUCTIVE PULMONARY DISEASE, UNSPECIFIED (2) CAD (coronary artery disease) Code(s): I25.10 - ATHSCL HEART DISEASE OF [place] CORONARY ARTERY W/O ANG PCTRS (3) History of lung cancer Code(s): Z85.118 - PERSONAL HISTORY OF MALIGNANT NEOPLASM OF BRONCHUS AND LUNG (4) Pleural effusion Code(s): J90 - PLEURAL EFFUSION, NOT ELSEWHERE CLASSIFIED (5) Pneumonia Code(s): J18.9 - PNEUMONIA, UNSPECIFIED ORGANISM Qualifiers: Pneumonia type: due to unspecified organism Laterality: right Lung location: upper lobe of lung Qualified Code(s): J18.9 - Pneumonia, unspecified organism (6) Shortness of breath Code(s): R06.02 - SHORTNESS OF BREATH
[2020-05-23] MEDS ORDERED: guaiFENesin 200 MG/10 ML 10 ML UNIT-DOSE CUPS PO PRN (14:59)
--- NOTE | 2020-05-23 16:15 | PN ---
Teaching Attending Note Name of Resident: Robert Keating ATTENDING PHYSICIAN STATEMENT I saw and evaluated the patient. I reviewed the resident's note and discussed the case with the resident. I agree with the resident's findings and plan as documented. ASSESSMENT 65 y/o gentleman w/ PMHx. of HTN, HLD, CAD (s/p AR and 4 stents 10/28 and 11/29) Reported history of Lung Malignancy, s/p SBR approx 2 years ago. Presented with sob, L. eff, L. pleural mass, suspect recurrent disease or Mesothelioma PLAN: 1) Awaiting Biopsy Results 2) Needs to follow-up with Dr. Daniel Ball soon
[2020-05-23 17:59] VITALS: BP 122/53; PULSE 108; TEMP 98
--- NOTE | 2020-05-25 17:07 | PATH ---
Surgical Pathology Report Patient Name: KAHLIL FARIA [facility]. Rec. #: [id number] /Age/Gender: 1955 (Age: 65) / M Account: [id number] Location: 4 SO PEDS/ADOL Taken: 05/22/2020 Received: 05/22/2020 Reported: 05/25/2020 Physicians: Irvin Wagner M.D. Specimen(s) Received LUNG BIOPSY Clinical History Left lung mass Final Diagnosis LEFT LUNG BIOPSY: ADENOCARCINOMA, POORLY DIFFERENTIATED. Comment: The biopsy shows a poorly differentiated carcinoma composed of sheets of highly atypical epithelial cells. Immunohistochemical stains show that the tumor is positive for AE1/3, CK7, CK20 (focal), TTF-1, and Napsin A. Focal weak staining with SATB2 and GATA3 is seen. The tumor is negative for p63, CDX-2, CDH17, and thrombomodulin. In view of the tumor immunophenotype (positive for CK7, TTF1 and Napsin A), it is consistent with an adenocarcinoma of lung origin. Clinical correlation is recommended. Positive and negative controls (internal if applicable) show appropriate results. Immunohistochemical stains Napsin A, SATB2 and GATA3, CDX-2, CDH17, and thrombomodulin at [facility], [place] ([id number]). CK7, TTF1, AE1/3, p63, and CK20 performed and interpreted at [facility]. Intradepartmental case reviewed with concordance on diagnosis. This case was discussed with Dr. Wagner on 05/25/2020. Electronically Signed Nga Jarrett M.D. Addendum Reported: 07/14/2020 Addendum Diagnosis OMNISEQ ADVANCE testing performed and interpreted at [place], [place] ([id number]) shows the following: TESTING NOT PERFORMED/FAILED Quantity Not Sufficient for microsatellite instability analysis by next generation sequencing. THERAPY CONSIDERATIONS FOR NON-SMALL CELL LUNG CANCER Markers Identified Therapies in Non-Small Cell Lung Cancer Therapies in Other Tumor Types Level 1 PD-L1 (IHC_22C3) 75% TPS Pembrolizumab1,2 None Level 2 No FDA Level 2 markers with immunotherapy or targeted therapy considerations for the tumor type tested or other tumor types were identified FDA Evidence Levels: 1) Career Services Director diagnostic; 2) Practice guidelines, clinically validated; 3) Clinically significant, analytically validated with clinical or mechanistic rationale (clinical trials, off-label therapies, or peer reviewed evidence). Clinical Trial Markers Identified Immunotherapy Targeted Therapy Level 3 CD137 78% CD8 14% PD-L1 76% CDKN2A c.131dup (Y44X) TP53 c.455C>T (P152L) Negative Results for Markers with FDA Career Services Director, Complementary or Emerging Diagnostics Immunotherapy Targeted Therapy TMB Not Reported ALK fusion BRAF V600 EGFR exon 19 deletion EGFR exon 20 insertion EGFR mutation HER2 (ERBB2) mutation KRAS mutation MET amp/exon 14 NTRK fusion RET fusion ROS1 fusion Targeted Therapy Markers of Unknown Significance DNMT3A c.2104G>T (D702Y) PATHOLOGIST SUMMARY INTERPRETATION: MOLECULAR SUMMARY: MSI could not be completed, limiting the overall evaluation of this tumor. Components of this test that could be completed were DNA-seq for targeted therapy, PD-L1 (22C3 clone) by IHC, RNA-seq immune profiling, and fusion analysis. QnplGHDK8C/DNMT3A/TP53 mutant non-small cell lung cancer is non-inflamed with a low number of CD8+ T-cells, high macrophage content, and strong expression of PD-L1 by IHC (TPS=75%; 22C3 clone). RNA-seq immune profiling analysis for PD-L1 shows a high level of expression. This tumor shows evidence of T-cell priming with over expression of CD137, T-cell recognition with over expression of PD-L1, T-cell trafficking with over expression of TNF, cancer testis antigens with positive expression of MAGEA3, and a propensity for killing cancer cells with over expression of CCL2. LIKELIHOOD OF RESPONSE BASED ON EVIDENCE IN CURRENT LITERATURE: Mutational burden was completed, but with a less than optimal neoplastic nuclei content at 20%, the results did not exceed a threshold of high mutational burden and are not reported. From an immunotherapy perspective, the expression of PD-L1 by IHC at 75% meets the requirement of first line pembrolizumab as an [id number] V.1 | Technical component performed at [facility] [address] [place] [address] | | CLIA ID: [id number] | CAP # [id number] electronically signed by Cira Khan MD | [place] | 07/10/2020 12:15 PM ETThis document contains confidential health information protected by state and federal laws. If you received this document in error, please contact [email or web address] Page 1 of 6 approved agent in this tumor type. The FDA has approved atezolizumab in combination with nab-paclitaxel and carboplatin for first-line treatment of adult patients with metastatic non-squamous non-small cell lung cancer with no EGFR or ALK genetic alterations. Response to PD-1axis inhibition in this patient is favorable based on the strong PD-L1 expression, although there is some concern for the non-inflamed status. Recommendation is agents that specifically improve TILs recruitment such as the mutant IL-2 drugs ALKS 4230 or mutant IL-15 ALT-803. POTENTIAL HEREDITARY CONSIDERATIONS: Variants in the TP53 gene are potentially associated with Li-Fraumeni Syndrome. However, [facility] results do not distinguish between somatic and germline variants as only tumor tissue is sequenced. Genetic counseling may be appropriate if an inherited syndrome is suspected.CDKN2A c.131dup (Y44X) at codon 44 in exon 1 (VAF = 0.37) is a truncating variant and would be considered an inactivating mutation.DNMT3A c.2104G>T (D702Y) at codon 702 in exon 18 (VAF = 0.215) is not a hotspot mutation, has not been functionally characterized, and there is no direct evidence to support this is an activating mutation in this gene.TP53 c.455C>T (P152L) at codon 152 in exon 5 (VAF = 0.202) is reported in ClinVar as pathogenic. See [facility] report for additional details. Report faxed to Dr. Palm and Dr. Landry on 07/10/20. Nga Jarrett M.D. Gross Description Received in formalin labeled "left lung biopsy," is a 1.0 x 0.5 x 0.1 cm aggregate of martell-brown soft tissue fragments. The formalin is filtered and the specimen is entirely submitted in one cassette. 05/22/2020 [facility]05/22/2020
== END 2020-05-23 19:59 | disposition home or self-care (01) | DRG 180 ==
LOC: JER 10:40 → JERBED 17:37 → J4S 20:02
PROVIDERS: ADMIT Family Medicine; ATTEND Family Medicine
PROC: 0W9B30Z Drainage of Left Pleural Cavity with Drainage Device, Percutaneous Approach (ICD-10-PCS; principal; 2020-05-09)
PROC: 0BBP3ZX Excision of Left Pleura, Percutaneous Approach, Diagnostic (ICD-10-PCS; 2020-05-22)
DX: C34.90 Malignant neoplasm of unspecified part of unspecified bronchus or lung (principal); J18.9 Pneumonia, unspecified organism; J91.0 Malignant pleural effusion; R64 Cachexia; I10 Essential (primary) hypertension; I25.10 Atherosclerotic heart disease of native coronary artery without angina pectoris; Z68.20 Body mass index [BMI] 20.0-20.9, adult; J44.9 Chronic obstructive pulmonary disease, unspecified; R09.02 Hypoxemia; F17.210 Nicotine dependence, cigarettes, uncomplicated; Z85.118 Personal history of other malignant neoplasm of bronchus and lung
CPT/HCPCS: 32405; 32557; 36415; 71045-TC-FY; 71046-TC-FY; 71250-TC; 77012-TC; 80048; 80053; 81003; 82042; 82150; 82465; 82550; 82945; 83605; 83615; 83735; 83880; 83986; 84157; 84478; 84484; 85025; 85027; 85379; 85610; 85730; 86480; 86769; 87040; 87070; 87075; 87086; 87102; 87116; 87205; 87206; 87210; 87899; 88108; 88305-TC; 88341-TC; 93005; 93010; 93306-TC; 94640; 99285-25; C1729; C1769; U0003

== ENCOUNTER 2020-07-20 07:09 | Day surgery (SDC) | payer OTHER ==
[2020-07-20] MEDS ORDERED: SODIUM CHLORIDE 250 ML IV ONE (09:00)
[2020-07-20] MEDS ORDERED: DEXAMETHASONE SODIUM PHOSPHATE 8 MG in SODIUM CHLORIDE 50 ML IVPB ONE (09:30)
[2020-07-20] MEDS ORDERED: PEMBROLIZUMAB 200 MG in SODIUM CHLORIDE 50 ML IV ONE ×2 (10:00→13:15)
[2020-07-20 12:02] LABS: BASO % 1.4 % (0-2.0); EOS % 3.6 % (0-4.5); HEMATOCRIT 36.7 % (35.4-49); HEMOGLOBIN 12.4 GM/dL (11.7-16.9); LYMPH % 18.6 % (8-40); MCH 32.7 pg (25.7-33.7); MCHC 33.6 g/dl (32.0-35.9); MEAN CELL VOLUME 97.1 fl (80-96); MEAN PLT VOLUME 7.3 fl (7.5-11.1); MONO % 10.7 % (3.8-10.2); NEUT % 65.7 % (42.8-82.8); PLATELET COUNT 319 K/MM3 (134-434); RBC 3.78 M/mm3 (4.00-5.60); RDW 14.5 % (11.9-15.9); WHITE BLOOD COUNT 8.9 K/mm3 (4.0-10.0)
[2020-07-20 12:37] LABS: ALBUMIN 3.3 g/dl (3.4-5.0); BILIRUBIN,DIRECT 0.1 mg/dL (0.0-0.2); BILIRUBIN,TOTAL 0.3 mg/dL (0.2-1); BLOOD UREA NITROGEN 13.6 mg/dL (7-18); CALCIUM 9.5 mg/dL (8.5-10.1); MAGNESIUM 2.1 mg/dL (1.8-2.4); POTASSIUM 4.2 mmol/L (3.5-5.1); TOT PROT 8.2 g/dl (6.4-8.2)
[2020-07-20 15:56] VITALS: TEMP 97.9
[2020-07-20 15:57] VITALS: BP 116/72; PULSE 107
== END 2020-07-20 14:40 | disposition home or self-care (01) ==
LOC: JONCCHEMO 07:09
PROVIDERS: ATTEND Internal Medicine Hematology & Oncology
PROC: 3E03305 Introduction of Other Antineoplastic into Peripheral Vein, Percutaneous Approach (ICD-10-PCS; principal; 2020-07-20)
PROC: 3E033GC Introduction of Other Therapeutic Substance into Peripheral Vein, Percutaneous Approach (ICD-10-PCS; 2020-07-20)
PROC: 3E0337Z Introduction of Electrolytic and Water Balance Substance into Peripheral Vein, Percutaneous Approach (ICD-10-PCS; 2020-07-20)
DX: Z51.11 Encounter for antineoplastic chemotherapy (principal); C34.92 Malignant neoplasm of unspecified part of left bronchus or lung; C79.89 Secondary malignant neoplasm of other specified sites
CPT/HCPCS: 36415; 80048; 80076; 82150; 82533; 83735; 84443; 85025; 86704; 86708; 86803; 87340; 96361; 96375; 96413; J9271

== ENCOUNTER 2020-08-10 06:17 | Day surgery (SDC) | payer OTHER ==
--- OUTSIDE RECORDS SUMMARY | 2020-08-10 07:41 | XMS ---
:1955 Author Organization [facility] Care Team Providers Name Role Phone DARIANCHLHELEN BENDER V Unavailable Unavailable ED STAFF PHYSICIAN, STAFF Unavailable Unavailable Kristy, Ammir Unavailable [phone] Kristy, Ammir Unavailable [phone] Kristy, Ammir Unavailable [phone] Kristy, Ammir Unavailable [phone] Kristy, Ammir Unavailable [phone] Kristy, Ammir Unavailable [phone] Kristy, Ammir Unavailable [phone] Kristy, Ammir Unavailable [phone] Kristy, Ammir Unavailable [phone] Kristy, Ammir Unavailable [phone] Kristy, Ammir Unavailable [phone] Kristy, Ammir Unavailable [phone] Kristy, Ammir Unavailable [phone] Kristy, Ammir Unavailable [phone] Kristy, Ammir Unavailable [phone] Kristy, Ammir Unavailable [phone] FAHNRICH MIAN C, MIAN Unavailable Unavailable ED STAFF PHYSICIAN Unavailable Unavailable Re-disclosure Warning The records that you are about to access may contain information from federally- assisted alcohol or drug abuse programs. If such information is present, then the following federally mandated warning applies: This information has been disclosed to you from records protected by federal confidentiality rules (42 CFR part 2). The federal rules prohibit you from making any further disclosure of this information unless further disclosure is expressly permitted by the written consent of the person to whom it pertains or as otherwise permitted by 42 CFR part 2. A general authorization for the release of medical or other information is NOT sufficient for this purpose. The Federal rules restrict any use of the information to criminally investigate or prosecute any alcohol or drug abuse patient.The records that you are about to access may contain highly sensitive health information, the redisclosure of which is protected by Article 27-F of the [facility] Public Health law. If you continue you may haveaccess to information: Regarding HIV / AIDS; Provided by facilities licensed or operated by the [facility] Office of Mental Health; or Provided by the [facility] Office for People With Developmental Disabilities. If such information is present, then the following [facility] mandated warning applies: This information has been disclosed to you from confidential records which are protected by state law. State law prohibits you from making any further disclosure of this information without the specific written consent of the person to whom it pertains, or as otherwise permitted by law. Any unauthorized further disclosure in violation of state law may result in a fine or shelter sentence or both. A general authorization for the release of medical or other information is NOT sufficient authorization for further disclosure. Encounters Encounter Providers Location Date Indications Data Source(s ) Attender: Irvin 05/29/2020 [facility] (A mmir Kristy 12:00:00 AM EDT Kristy Ph ysician) Office Attender: Irvin Wagner 05/29/2020 12:00:00 AM E DT [facility] (Ammir Kristy Physician) Office Attender: Irvin Wagner 05/29/2020 12:00:00 AM E DT [facility] (Ammir Kristy Physician) Office Attender: Irvin Wagner 05/29/2020 12:00:00 AM E DT [facility] (Ammiflorina Wagner Physician) Office Attender: Irvin Wagner 05/29/2020 12:00:00 AM E DT [facility] (Ammir Kristy Physician) Office Attender: Ammir Kristy 05/29/2020 12:00:00 AM E DT [facility] (Ammir Kristy Physician) Office Attender: Ammir Kristy 05/29/2020 12:00:00 AM E DT [facility] (Ammir Kristy Physician) Office Attender: Ammir Kristy 05/29/2020 12:00:00 AM E DT [facility] (Ammir Kristy Physician) Office Emergency Attender: MIAN Beasley 04/26/2020 10:37 :00 AM [facility] STAFF EDT - 04/26/2020 [facility] PHYSICIANAdmitter: MIAN 12:53:00 PM EDT TITUS Redd Patient discharged. Emergency Attender: ED STAFF H 2020 10:48:00 PM [facility] PHYSICIANAttender: STAFF ED EDT - 04/16/2020 [facility] STAFF PHYSICIANAdmitter: ED 01:30:00 AM EDT STAFF PHYSICIANReferrer: STAFF ED STAFF PHYSICIAN Patient discharged. Outpatient 10/14/2019 12:51:00 PM [facility] Outpatient 10/14/2019 12:00:00 AM [facility] Inpatient Attender: HELEN Bryant H-HAL5 10/01/2019 07:10:00 PM [facility] ANJEL PONCEA Manny EST - 10/05/2019 [facility] GAttender: STAFF ED 01:55:00 PM EST STAFF PHYSICIANAdmitter: HELEN PACHECOSHA V GReferrer: HELEN Manny HOBBS HELEN V G Patient discharged. Immunizations Vaccine Date Status Description Data Source(s) pneumococcal 10/05/2019 completed [facility] edical polysaccharide PPV23 01:49:00 PM EST Cent er Influenza, high dose 07/30/2019 completed [facility] (Ammir Kristy seasonal 12:00:00 AM EDT Physician) New in 2011. IIV4 12/24/2017 completed [facility] (A mmir Kristy 12:00:00 AM EST Physician) Medications Medication Brand Start Product Dose Route Administrative Pharmacy [facility] Indications Reaction Description Data Name Date Form Instructions Instructions Source(s) Budesonide SYMBIC 04/01/ AEROSOL 1 complet SYMB ICORT [facility] 0.08 ORT:40 2019 ed (Ammir MG/ACTUAT / 9732 12:00: Kristy formoterol 00 AM Physicia n) 0.0045 EDT MG/ACTUAT Inhalant Powder SYMBICORT:4 13996 SPIRIVA 02/08/ AEROSOL 1 complet SPIRIVA M CECILEN RESPIMAT:17 2019 ed [place]PIMAT ([place] [address] 12:00: Kristy 00 AM Physician) EDT 200 ACTUAT PROAIR 02/08/ AEROSOL 1 complet PROA IR HFA [facility] Albuterol HFA:74 2019 ed (Ammir 0.09 5679 12:00: Kristy MG/ACTUAT 00 AM Physician ) Metered EDT Dose Inhaler PROAIR HFA:112469 FLONASE:179 02/08/ SPRAY 1 complet FLONASE [facility] 7933 2019 ed (Ammir 12:00: Kristy 00 AM Physician) EDT Aspirin 81 ASPIRI 02/08/ DELAYED 30 complet ASPI RIN [facility] MG Delayed N 2020 RELEASE ed ADULT LOW ( Ammir Release ADULT 12:00: TABLET STRENGTH Rab ngozi Oral Tablet LOW 00 AM Physici an) ASPIRIN STRENG EDT ADULT LOW TH:308 STRENGTH:30 416 8416 NEBULIZER/T complet NEBULIZE R/TU [facility] UBING/MOUTH 2019 ed HALLE/MOUTHPI (Ammir PIECE KIT: 12:00: RACHEAL KIT Raba di 00 AM Physician) EST Mirtazapine REMERO 10/14/ TABLET 30 complet JOSH MARIANA [facility] 15 MG Oral N:3117 2018 ed (Ammir Tablet 25 12:00: Kristy REMERON:311 00 AM Physici an) 725 EST DUONEB:8359 10/14/ SOLUTION 1 complet DUON EB [facility] 03 2018 ed (Ammir 12:00: Kristy 00 AM Physician) EST Lorazepam 1 ATIVAN 10/14/ TABLET 30 complet ATIV AN [facility] MG Oral :2018 ed (Ammir Tablet 1 12:00: Kristy ATIVAN:1979 00 AM Physici an) 01 EST 24 HR NICODE 08/11/ FILM, 1 complet NICODERM ME DGEN Nicotine RM:198 2018 EXTENDED ed (Ammi r 0.875 MG/HR 030 12:00: RELEASE Rab ngozi Transdermal 00 AM Physici an) Patch EDT NICODERM:19 8030 VITAMIN 10// CAPSULE 12 complet VITAMIN D 2 [employer] D2:466500 1069 ed (Ammir 12:00: Kristy 00 AM Physician) EDT quetiapine QUEtia 1 complet Yesika t 100 MG Oral pine ed Verna Tablet 100 mg Medical QUEtiapine Tablet Center 100 mg , Tablet, Ordere Ordered By: d By: Calli Wadsworthirection abner, s: 1 tablet MDDire oral daily ctions at bedtime : 1 tablet oral daily at bedtim e multivitami 1 complet Thera Yesika t n with ed Verna foLIC Acid Medical (Thera) 400 Center mcg Tablet, Ordered By: MARCELLA Clarkeirection s: 1 tablet oral daily Mirtazapine mirtaz 1 complet Yan nt 15 MG Oral apine ed Verna Tablet 15 mg Medical mirtazapine Tablet Center 15 mg , Tablet, Ordere Ordered By: d By: Calli Wadsworthirection abner, s: 1 tablet MDDire oral daily ctions at bedtime : 1 tablet oral daily at bedtim e Thiamine thiami 1 complet Saint 100 MG Oral ne HCl ed Victor Hugo s Tablet (vitam Medical thiamine in B1) Center HCl 100 mg (vitamin Tablet B1) 100 mg , Tablet, Ordere Ordered By: d By: Calli Wadsworth MDDirection abner, s: 1 tablet MDDire oral daily ctions : 1 tablet oral daily 24 HR nicoti 1 complet Saint Nicotine ne 7 ed Verna 0.292 MG/HR mg/24 Medical Transdermal hour Center Patch patch nicotine 7 24 mg/24 hour hour, patch 24 Ordere hour, d By: Ordered By: abner Dumont, MARCELLAirection MDDire s: 1 patch ctions transdermal : 1 daily patch transd ermal daily albuterol 2 complet Saint sulfate 90 ed Verna mcg HFA Medical Aerosol Center Inhaler, Ordered By: Eliecer Clarke s: 2 puff by inhalation every four hours PRN shortness of breath 120 ACTUAT budeso 2 complet Symbicort Saint Budesonide nide-f ed [facility] 0.08 ormote Medical MG/ACTUAT / rol Center formoterol (Symbi fumarate paul) 0.0045 80 MG/ACTUAT mcg-4. Metered 5 Dose mcg/Ac Inhaler tuatio [Symbicort] n HFA budesonide- Aeroso formoterol l (Symbicort) Inhale 80 mcg-4.5 r, mcg/Actuati Ordere on HFA d By: Aerosol Yecenia LeerCalli Ordered By: Yecenia levine ctions MDDirection : 2 s: 2 puff puff by by inhalation inhala twice a day tion twice a day Insurance Providers Payer name Policy type Policy ID Covered Covered libertarian's Policy P mary / Coverage libertarian ID relationship to [place] [employer] ormation type [place] [facility] [id number] SP [id number] MEDICARE JAMES J. [id number] SP [id number] [place] [employer] [place] [id number] SP [id number] MEDICARE [id number] SP [id number] 01 [id number] 01 [id number] 01 [id number] A [id number] 01 [id number] A MEDICARE [id number] SP [id number] A [facility] [id number] SP [id number] DEPARMENT OF [facility] AF Problems, Conditions, and Diagnoses Code Display Name Description Problem Type Effective Data Dates Source(s) C34.90 Malignant neoplasm MALIGNANT NEOPLASM Problem 0 [facility] (Ammir of unspecified OF UNSPECIFIED 12:00:00 AM Thiago i part of PART OF EDT Physician) unspecified UNSPECIFIED bronchus or lung BRONCHUS OR LUNG R53.82 Chronic fatigue, CHRONIC FATIGUE, Problem 05/29/2020 [place] [facility] (Ammir unspecified UNSPECIFIED 12:00:00 AM Kristy EDT Physician) Z91.81 History of falling HISTORY OF FALLING Problem 0 [facility] (Ammir 12:00:00 AM Kristy EDT Physician) Z71.89 Other specified OTHER SPECIFIED Problem 02/09/2020 [facility] (Ammir counseling COUNSELING 12:00:00 AM Kristy EDT Physician) F10.10 Alcohol abuse, ALCOHOL ABUSE, Problem 10/14/2019 [facility] (Ammir uncomplicated UNCOMPLICATED 12:00:00 AM Kristy EST Physician) R10.84 Generalized GENERALIZED Problem 10/14/2019 [facility] (Ammi r abdominal pain ABDOMINAL PAIN 12:00:00 AM Rabad i EST Physician) M25.512 Pain in left PAIN IN LEFT Problem 10/14/2019 [facility] (Am evon shoulder SHOULDER 12:00:00 AM Kristy EST Physician) R20.2 Paresthesia of PARESTHESIA OF Problem 10/14/2019 [facility] (Ammir skin SKIN 12:00:00 AM Kristy EST Physician) G47.00 Insomnia, INSOMNIA, Problem 10/14/2019 [facility] (Ammir unspecified UNSPECIFIED 12:00:00 AM Kristy EST Physician) R53.1 Weakness WEAKNESS Problem 10/14/2019 [facility] (Ammir 12:00:00 AM Kristy EST Physician) K76.89 Other specified OTHER SPECIFIED Problem 10/14/2019 [facility] (Ammir diseases of liver DISEASES OF LIVER 12:00:00 AM Kristy EST Physician) R94.5 Abnormal results ABNORMAL RESULTS Problem 10/14/2019 [place] [facility] (Ammir of liver function OF LIVER FUNCTION 12:00:00 AM Kristy studies STUDIES EST Physician) R00.2 Palpitations PALPITATIONS Problem 07/30/2019 [facility] (Am evon 12:00:00 AM Kristy EDT Physician) R06.02 Shortness of SHORTNESS OF Problem 07/30/2019 [facility] (Am evon breath BREATH 12:00:00 AM Kristy EDT Physician) Z23 Encounter for ENCOUNTER FOR Problem 07/30/2019 [facility] ( Ammir immunization IMMUNIZATION 12:00:00 AM Kristy EDT Physician) R63.4 Abnormal weight ABNORMAL WEIGHT Problem 07/30/2019 [facility] (Ammir loss LOSS 12:00:00 AM Kristy EDT Physician) J44.9 Chronic CHRONIC Problem 01/19/2018 [facility] (Ammir obstructive OBSTRUCTIVE 12:00:00 AM Kristy pulmonary disease, PULMONARY DISEASE, EDT Physician) unspecified UNSPECIFIED R05 Cough COUGH Problem 12/24/2017 [facility] (Ammir 12:00:00 AM Kristy EST Physician) Z00.00 Encounter for ENCOUNTER FOR Problem 12/24/2017 [facility] ( Ammir general adult GENERAL ADULT 12:00:00 AM Kristy medical MEDICAL EST Physician) examination EXAMINATION without abnormal WITHOUT ABNORMAL findings FINDINGS F10.20 Alcohol ALCOHOL Problem 12/24/2017 [facility] (Ammir dependence, DEPENDENCE, 12:00:00 AM Kristy uncomplicated UNCOMPLICATED EST Physicia n) F17.200 Nicotine NICOTINE Problem 12/24/2017 [facility] (Ammir dependence, DEPENDENCE, 12:00:00 AM Kristy unspecified, UNSPECIFIED, EST Physician) uncomplicated UNCOMPLICATED F32.89 Other specified OTHER SPECIFIED Problem 12/24/2017 [facility] EN (Ammir depressive DEPRESSIVE 12:00:00 AM Kristy episodes EPISODES EST Physician) I49.9 Cardiac CARDIAC Problem 12/24/2017 [facility] (Ammir arrhythmia, ARRHYTHMIA, 12:00:00 AM Kristy unspecified UNSPECIFIED EST Physician) R42 Dizziness and DIZZINESS AND Problem 12/24/2017 [facility] ( Ammir giddiness GIDDINESS 12:00:00 AM Kristy EST Physician) M54.5 Low back pain LOW BACK PAIN Problem 12/24/2017 [facility] ( Ammir 12:00:00 AM Kristy EST Physician) I73.9 Peripheral PERIPHERAL Problem 12/24/2017 [facility] (Ammir vascular disease, VASCULAR DISEASE, 12:00:00 AM Kristy unspecified UNSPECIFIED EST Physician) Z85.118 Personal history PERSONAL HISTORY Problem 12/24/2017 [facility] (Ammir of other malignant OF OTHER MALIGNANT 12:00:00 AM Kristy neoplasm of NEOPLASM OF EST Physician) bronchus and lung BRONCHUS AND LUNG F17.210 Nicotine NICOTINE Diagnosis 04/26/2020 [facility] dependence, DEPENDENCE, 10:37:00 AM Medical cigarettes, CIGARETTES, EDT Center uncomplicated UNCOMPLICATED Y99.9 Unspecified UNSPECIFIED Diagnosis 04/26/2020 [facility] external cause EXTERNAL CAUSE 10:37:00 AM Medic al status STATUS EDT Center Y92.[address] IN UNSP Diagnosis 04/26/2020 [facility] in unspecified NON-INSTITUT 10:37:00 AM Medical non-institutional (PRIVATE) EDT Center (private) RESIDENCE PLACE residence as the place of occurrence of the external cause Y93.9 Activity, ACTIVITY, Diagnosis 04/26/2020 [facility] unspecified UNSPECIFIED 10:37:00 AM Medical EDT Center W19.XXXD Unspecified fall, UNSPECIFIED FALL, Diagnosis 04/26/2020 [facility] subsequent SUBSEQUENT 10:37:00 AM Medical encounter ENCOUNTER EDT Center S01.81XD Laceration without LACERATION W/O Diagnosis 04/26/2020 Sa burt Verna foreign body of FOREIGN BODY OF 10:37:00 AM Med ical other part of OTH PART OF HEAD, EDT Cent er head, subsequent SUBS ENCNTR encounter Z48.02 Encounter for ENCOUNTER FOR Diagnosis 04/26/2020 [facility] negrete removal of sutures REMOVAL OF SUTURES 10:37:00 AM Medical EDT Center Z53.20 Procedure and PROC/TRTMT NOT CRD Diagnosis 2020 Yan Gays treatment not OUT BEC PT 10:48:00 PM Medical carried out DECISION FOR [facility] EDT Center because of REASONS patient's decision for unspecified reasons W19.XXXA Unspecified fall, UNSPECIFIED FALL, Diagnosis 2020 [facility] initial encounter INITIAL ENCOUNTER 10:48:00 PM Medical EDT Center S01.81XA Laceration without LACERATION W/O Diagnosis 2020 Sa javed [facility] foreign body of FOREIGN BODY OF 10:48:00 PM Med ical other part of OTH PART OF HEAD, EDT Cent er head, initial INIT ENCNTR encounter F32.9 Major depressive MAJOR DEPRESSIVE Diagnosis 10/05/2019 [facility] j[facility] disorder, single DISORDER, SINGLE 01:55:00 PM M edical episode, EPISODE, EST Center unspecified UNSPECIFIED F10.24 Alcohol dependence ALCOHOL DEPENDENCE Diagnosis 9 [facility] with WITH 01:55:00 PM Medical alcohol-induced ALCOHOL-INDUCED EST Cent er mood disorder MOOD DISORDER K70.9 Alcoholic liver ALCOHOLIC LIVER Diagnosis 10/05/2019 Yesika [facility] disease, DISEASE, 01:55:00 PM Medical unspecified UNSPECIFIED EST Center Y90.8 Blood alcohol BLOOD ALCOHOL Diagnosis 10/05/2019 [facility] negrete level of 240 LEVEL OF 240 01:55:00 PM Medical mg/100 ml or more MG/100 ML OR MORE EST Center F10.239 Alcohol dependence ALCOHOL DEPENDENCE Diagnosis 9 [facility] with withdrawal, WITH WITHDRAWAL, 07:10:00 PM M edical unspecified UNSPECIFIED EST Center Surgeries/Procedures Procedure Description Date Indications Data Source(s) Documentation of current 05/29/2020 [facility] (Ammir Kristy medications (procedure) 12:00:00 AM EDT P hysician) Documentation of current 05/29/2020 [facility] (Ammir Kristy medications (procedure) 12:00:00 AM EDT P hysician) Documentation of current 05/29/2020 [facility] (Ammir Kristy medications (procedure) 12:00:00 AM EDT P hysician) Documentation of current 05/29/2020 [facility] (Ammir Kristy medications (procedure) 12:00:00 AM EDT P hysician) Documentation of current 05/29/2020 [facility] (Ammir Kristy medications (procedure) 12:00:00 AM EDT P hysician) Documentation of current 05/29/2020 [facility] (Ammir Kristy medications (procedure) 12:00:00 AM EDT P hysician) Documentation of current 05/29/2020 [facility] (Ammir Kristy medications (procedure) 12:00:00 AM EDT P hysician) Documentation of current 05/29/2020 [facility] (Ammir Kristy medications (procedure) 12:00:00 AM EDT P hysician) Documentation of current 05/29/2020 [facility] (Ammir Kristy medications (procedure) 12:00:00 AM EDT P hysician) Documentation of current 05/29/2020 [facility] (Ammir Kristy medications (procedure) 12:00:00 AM EDT P hysician) Documentation of current 05/29/2020 [facility] (Ammir Kristy medications (procedure) 12:00:00 AM EDT P hysician) Documentation of current 05/29/2020 [facility] (Ammir Kristy medications (procedure) 12:00:00 AM EDT P hysician) Documentation of current 02/02/2020 [facility] (Ammir Kristy medications (procedure) 12:00:00 AM EDT P hysician) Documentation of current 02/02/2020 [facility] (Ammir Kristy medications (procedure) 12:00:00 AM EDT P hysician) Documentation of current 02/02/2020 [facility] (Ammir Kristy medications (procedure) 12:00:00 AM EDT P hysician) Documentation of current 07/30/2019 [facility] (Ammir Kristy medications (procedure) 12:00:00 AM EDT P hysician) Documentation of current 07/30/2019 [facility] (Ammir Kristy medications (procedure) 12:00:00 AM EDT P hysician) Documentation of current 07/30/2019 [facility] (Ammir Kristy medications (procedure) 12:00:00 AM EDT P hysician) Documentation of current 07/30/2019 [facility] (Ammir Kristy medications (procedure) 12:00:00 AM EDT P hysician) Documentation of current 07/30/2019 [facility] (Ammir Kristy medications (procedure) 12:00:00 AM EDT P hysician) Documentation of current 07/30/2019 [facility] (Ammir Kristy medications (procedure) 12:00:00 AM EDT P hysician) Documentation of current 07/30/2019 [facility] (Ammir Kristy medications (procedure) 12:00:00 AM EDT P hysician) Documentation of current 07/30/2019 [facility] (Ammir Kristy medications (procedure) 12:00:00 AM EDT P hysician) Documentation of current 07/30/2019 [facility] (Ammir Kristy medications (procedure) 12:00:00 AM EDT P hysician) Documentation of current 07/30/2019 [facility] (Ammir Kristy medications (procedure) 12:00:00 AM EDT P hysician) Documentation of current 07/30/2019 [facility] (Ammir Kristy medications (procedure) 12:00:00 AM EDT P hysician) Documentation of current 07/30/2019 [facility] (Ammir Kristy medications (procedure) 12:00:00 AM EDT P hysician) Documentation of current 07/30/2019 [facility] (Ammir Kristy medications (procedure) 12:00:00 AM EDT P hysician) Documentation of current 07/30/2019 [facility] (Ammir Kristy medications (procedure) 12:00:00 AM EDT P hysician) Documentation of current 07/30/2019 [facility] (Ammir Kristy medications (procedure) 12:00:00 AM EDT P hysician) Documentation of current 07/30/2019 [facility] (Ammir Kristy medications (procedure) 12:00:00 AM EDT P hysician) Documentation of current 07/30/2019 [facility] (Ammir Kristy medications (procedure) 12:00:00 AM EDT P hysician) Documentation of current 07/30/2019 [facility] (Ammir Kristy medications (procedure) 12:00:00 AM EDT P hysician) Documentation of current 12/24/2017 [facility] (Ammir Kristy medications (procedure) 12:00:00 AM EST P hysician) Documentation of current 12/24/2017 [facility] (Ammir Kristy medications (procedure) 12:00:00 AM EST P hysician) Documentation of current 12/24/2017 [facility] (Ammir Kristy medications (procedure) 12:00:00 AM EST P hysician) Documentation of current 12/24/2017 [facility] (Ammir Kristy medications (procedure) 12:00:00 AM EST P hysician) Documentation of current 12/24/2017 [facility] (Ammir Kristy medications (procedure) 12:00:00 AM EST P hysician) Documentation of current 12/24/2017 [facility] (Ammir Kristy medications (procedure) 12:00:00 AM EST P hysician) Documentation of current 12/24/2017 [facility] (Ammir Kristy medications (procedure) 12:00:00 AM EST P hysician) Documentation of current 12/24/2017 [facility] (Ammir Kristy medications (procedure) 12:00:00 AM EST P hysician) Documentation of current 12/24/2017 [facility] (Ammir Kristy medications (procedure) 12:00:00 AM EST P hysician) Documentation of current 12/24/2017 [facility] (Ammir Kristy medications (procedure) 12:00:00 AM EST P hysician) Results ID Date Data Source [id number] 05/09/2020 11:10:00 AM EDT [facility] Name Value Range Interpretation Description Data Sup porting Code Source(s) Document(s ) SARS [facility] CORONAVIRUS 2 RNA This lab was ordered by [facility] and reported by [facility]. ID Date Data Source Liver 10/05/2019 05:45:00 AM MATTHEW [facility] [id number] Name Value Range Interpretation Description Data Sup porting Code Source(s) Document(s ) Aspartate 17-59 Above high <content [facility] aminotransferase normal styleCode="Bold"> Juanito hs [Enzymatic Aspartate Medical activity/volume] Aminotransferase Center in Serum or Plasma (AST) </content>60 IU/L H<content styleCode="Italic s"> (17-59 IU/L)</content> Alkaline 38-126 <content [facility] phosphatase styleCode="Bold"> Verna [Enzymatic Alkaline Medical activity/volume] Phosphatase (ALP) Cente r in Serum or Plasma </content>86 IU/L<content styleCode="Italic s"> (38-126 IU/L)</content> Bilirubin.total 0.2-1.3 <content [facility] [Mass/volume] in styleCode="Bold"> Juanito hs Serum or Plasma Bilirubin Total Medical </content>1.2 Center MG/DL<content styleCode="Italic s"> (0.2-1.3 MG/DL)</content> Alanine 7-50 Above high <content [facility] aminotransferase normal styleCode="Bold"> Juanito hs [Enzymatic Alanine Medical activity/volume] Aminotransferase Center in Serum or Plasma (ALT) </content>56 IU/L H<content styleCode="Italic s"> (7-50 IU/L)</content> Albumin 3.5-5.0 <content [facility] [Mass/volume] in styleCode="Bold"> Juanito hs Serum or Plasma Albumin Medical </content>3.7 Center G/DL<content styleCode="Italic s"> (3.5-5.0 G/DL)</content> ID Date Data Source GFR(Creatinine).[id number] 10/05/2019 05:45:00 AM MATTHEW [facility] 0-0500 Name Value Range Interpretation Code Description Data Arely rce(s) Supporting Document(s ) UNK > 60 <content [facility] styleCode="Bold"> Medical Cent er EGFR </content>80 GFR<content styleCode="Italic s"> (> 60 GFR)</content> ID Date Data Source CHMROUTINECCDA.[id number] 10/05/2019 05:45:00 AM MATTHEW [facility] -0500 Name Value Range Interpretation Description Data Sup porting Code Source(s) Document(s ) UNK >= 1.0 <content [facility] styleCode="Bold Medical ">AG Ratio Center </content>1.0 <content styleCode="Ital ics"> (>= 1.0 )</content> Protein 6.3-8.2 <content [facility] [Mass/volum styleCode="Bold Medical e] in Serum ">Total Protein Center or Plasma </content>7.3 G/DL<content styleCode="Ital ics"> (6.3-8.2 G/DL)</content> UNK 2.3-3.5 Above high normal <content [facility] styleCode="Bold Medical ">Globulin Center </content>3.6 G/DL H<content styleCode="Ital ics"> (2.3-3.5 G/DL)</content> ID Date Data Source [facility].[id number] 10/05/2019 05:45:00 AM MATTHEW [facility] Name Value Range Interpretation Description Data Sup porting Code Source(s) Document(s ) Carbon dioxide, 22-30 Above high <content [facility] total normal styleCode="Bold"> [facility]a [Moles/volume] in Carbon Dioxide Medical Serum or Plasma </content>31 Center MEQ/L H<content styleCode="Italic s"> (22-30 MEQ/L)</content> Chloride 98-107 Below low <content [facility] [Moles/volume] in normal styleCode="Bold"> Dayday phs Serum or Plasma Chloride Medical </content>97 Center MEQ/L L<content styleCode="Italic s"> (98-107 MEQ/L)</content> Potassium 3.5-5.3 <content Saint [Moles/volume] in styleCode="Bold"> Dayday phs Serum or Plasma Potassium Medical </content>3.5 Center MEQ/L<content styleCode="Italic s"> (3.5-5.3 MEQ/L)</content> Sodium 137-145 <content [facility] [Moles/volume] in styleCode="Bold"> Dayday phs Serum or Plasma Sodium Medical </content>137 Center MEQ/L<content styleCode="Italic s"> (137-145 MEQ/L)</content> Glucose 74-106 <content [facility] [Mass/volume] in styleCode="Bold"> Juanito hs Serum or Plasma Glucose Medical </content>103 Center MG/DL<content styleCode="Italic s"> (74-106 MG/DL)</content> UNK 9-20 <content Saint styleCode="Bold"> Verna BUN </content>19 Medical MG/DL<content Center styleCode="Italic s"> (9-20 MG/DL)</content> Creatinine 0.5-1.3 <content Saint [Mass/volume] in styleCode="Bold"> Juanito hs Serum or Plasma Creatinine Medical </content>1.0 Center MG/DL<content styleCode="Italic s"> (0.5-1.3 MG/DL)</content> Aspartate 17-59 Above high <content [facility] aminotransferase normal styleCode="Bold"> Juanito hs [Enzymatic Aspartate Medical activity/volume] Aminotransferase Center in Serum or Plasma (AST) </content>60 IU/L H<content styleCode="Italic s"> (17-59 IU/L)</content> UNK > 60 <content Saint styleCode="Bold"> Verna EGFR </content>80 Medical GFR<content Center styleCode="Italic s"> (> 60 GFR)</content> Calcium 8.4-10. <content Saint [Mass/volume] in 2 styleCode="Bold"> Juanito hs Serum or Plasma Calcium Medical </content>9.5 Center MG/DL<content styleCode="Italic s"> (8.4-10.2 MG/DL)</content> Alanine 7-50 Above high <content Saint aminotransferase normal styleCode="Bold"> Juanito hs [Enzymatic Alanine Medical activity/volume] Aminotransferase Center in Serum or Plasma (ALT) </content>56 IU/L H<content styleCode="Italic s"> (7-50 IU/L)</content> Albumin 3.5-5.0 <content [facility] [Mass/volume] in styleCode="Bold"> Juanito hs Serum or Plasma Albumin Medical </content>3.7 Center G/DL<content styleCode="Italic s"> (3.5-5.0 G/DL)</content> Bilirubin.total 0.2-1.3 <content [facility] [Mass/volume] in styleCode="Bold"> Juanito hs Serum or Plasma Bilirubin Total Medical </content>1.2 Center MG/DL<content styleCode="Italic s"> (0.2-1.3 MG/DL)</content> Alkaline 38-126 <content [facility] phosphatase styleCode="Bold"> Verna [Enzymatic Alkaline Medical activity/volume] Phosphatase (ALP) Cente r in Serum or Plasma </content>86 IU/L<content styleCode="Italic s"> (38-126 IU/L)</content> ID Date Data Source Liver 10/04/2019 05:53:00 AM EST [facility] Profile.[id number] Name Value Range Interpretation Description Data Sup porting Code Source(s) Document(s ) Aspartate 17-59 Above high <content [facility] aminotransferase normal styleCode="Bold"> Juanito hs [Enzymatic Aspartate Medical activity/volume] Aminotransferase Center in Serum or Plasma (AST) </content>69 IU/L H<content styleCode="Italic s"> (17-59 IU/L)</content> Alanine 7-50 Above high <content Saint aminotransferase normal styleCode="Bold"> Juanito hs [Enzymatic Alanine Medical activity/volume] Aminotransferase Center in Serum or Plasma (ALT) </content>60 IU/L H<content styleCode="Italic s"> (7-50 IU/L)</content> Alkaline 38-126 <content Saint phosphatase styleCode="Bold"> Verna [Enzymatic Alkaline Medical activity/volume] Phosphatase (ALP) Cente r in Serum or Plasma </content>93 IU/L<content styleCode="Italic s"> (38-126 IU/L)</content> Bilirubin.total 0.2-1.3 <content Saint [Mass/volume] in styleCode="Bold"> Juanito hs Serum or Plasma Bilirubin Total Medical </content>1.1 Center MG/DL<content styleCode="Italic s"> (0.2-1.3 MG/DL)</content> Albumin 3.5-5.0 <content [facility] [Mass/volume] in styleCode="Bold"> Juanito hs Serum or Plasma Albumin Medical </content>4.1 Center G/DL<content styleCode="Italic s"> (3.5-5.0 G/DL)</content> ID Date Data Source HematologyRou.[id number] 10/04/2019 05:53:00 AM MATTHEW [facility] 0500 Name Value Range Interpretation Description Data Sup porting Code Source(s) Document(s ) Leukocytes 4.4-11.0 <content Saint [#/volume] in styleCode="Bold Verna Blood by ">White Blood Medical Automated count Cell Count Center </content>8.71 KCUMM<content styleCode="Ital ics"> (4.4-11.0 KCUMM)</content > Hematocrit 41.0-53. <content Saint [Volume 0 styleCode="Bold Verna Fraction] of ">Hematocrit Medical Blood by </content>45.1 Center Automated count %<content styleCode="Ital ics"> (41.0-53.0 %)</content> Erythrocytes 4.4-5.9 <content Saint [#/volume] in styleCode="Bold Verna Blood by ">Red Blood Medical Automated count Cell Count Center </content>4.56 MCUMM<content styleCode="Ital ics"> (4.4-5.9 MCUMM)</content > Hemoglobin 13.5-17. <content Saint [Mass/volume] in 5 styleCode="Bold Verna Blood ">Hemoglobin Medical </content>15.5 Center G/DL<content styleCode="Ital ics"> (13.5-17.5 G/DL)</content> Erythrocyte mean 26.0-34. <content [facility] corpuscular 0 styleCode="Bold Verna hemoglobin ">Mean Medical [Entitic mass] Corposcular Center by Automated Hemoglobin count </content>34.0 PG<content styleCode="Ital ics"> (26.0-34.0 PG)</content> Erythrocyte mean 32.0-37. <content [facility] corpuscular 0 styleCode="Bold Verna hemoglobin ">Mean Corpus. Medical concentration Hgb Center [Mass/volume] by Concentration Automated count (MCHC) </content>34.4 G/DL<content styleCode="Ital ics"> (32.0-37.0 G/DL)</content> Erythrocyte 11.5-14. Below low normal <content Saint distribution 5 styleCode="Bold Verna width [Ratio] by ">Red Cell Medical Automated count Distribution Center Width </content>11.2 % L<content styleCode="Ital ics"> (11.5-14.5 %)</content> Erythrocyte mean 80.0-100 <content [facility] corpuscular .0 styleCode="Bold Verna volume [Entitic ">Mean Medical volume] by Corpuscular Center Automated count Volume </content>98.9 FL<content styleCode="Ital ics"> (80.0-100.0 FL)</content> Platelet mean 8.0-11.0 <content Saint volume [Entitic styleCode="Bold Verna volume] in Blood ">Mean Platelet Medical by Automated Volume Center count </content>9.5 FL<content styleCode="Ital ics"> (8.0-11.0 FL)</content> UNK 0 <content Saint styleCode="Bold Verna ">Nucleated Red Medical Blood Cell Center </content>0.0 /100<content styleCode="Ital ics"> (0 /100)</content> Platelets 130-400 Below low normal <content Saint [#/volume] in styleCode="Bold Verna Blood by ">Platelet Medical Automated count Count Center </content>124 KCUMM L<content styleCode="Ital ics"> (130-400 KCUMM)</content > UNK 0.0 <content Saint styleCode="Bold Verna ">Nucleated Red Medical Blood Cell Center Count </content>0.00 KCUMM<content styleCode="Ital ics"> (0.0 KCUMM)</content > ID Date Data Source GFR(Creatinine).[id number] 10/04/2019 05:53:00 AM EST [facility] 0-0500 Name Value Range Interpretation Code Description Data Arely rce(s) Supporting Document(s ) UNK > 60 <content [facility] styleCode="Bold"> Medical Cent er EGFR </content>80 GFR<content styleCode="Italic s"> (> 60 GFR)</content> ID Date Data Source Coagulation 10/04/2019 05:53:00 AM [facility] ical Center Rout.[id number] EST Name Value Range Interpretation Description Data Sup porting Code Source(s) Document(s ) aPTT in 25.1-36. <content Saint Platelet poor 5 styleCode="Bold" Verna plasma by >Partial Medical Coagulation Thromboplastin Center assay Time </content>33.0 SEC<content styleCode="Itali cs"> (25.1-36.5 SEC)</content> UNK 9.0-13.0 <content Saint styleCode="Bold" Verna >Protime Medical </content>11.6 Center SEC<content styleCode="Itali cs"> (9.0-13.0 SEC)</content> INR in 0.80-1.2 <content Saint Platelet poor 0 styleCode="Bold" Verna plasma by >INR Medical Coagulation </content>1.05 Center assay #<content styleCode="Itali cs"> (0.80-1.20 #)</content> ID Date Data Source CHMROUTINECCDA.[id number] 10/04/2019 05:53:00 AM EST [facility] -0500 Name Value Range Interpretation Description Data Sup porting Code Source(s) Document(s ) UNK >= 1.0 <content Saint styleCode="Timothy Verna d">AG Ratio Medical </content>1.1 Center <content styleCode="Abner lics"> (>= 1.0 )</content> Magnesium 1.6-2.3 <content Saint [Mass/volume] styleCode="Timothy Verna in Serum or d">Magnesium Medical Plasma </content>1.9 Center MG/DL<content styleCode="Abner lics"> (1.6-2.3 MG/DL)</conten t> UNK 2.3-3.5 Above high normal <content Saint styleCode="Timothy Verna d">Globulin Medical </content>3.9 Center G/DL H<content styleCode="Abner lics"> (2.3-3.5 G/DL)</content > Phosphate 2.5-4.5 <content Saint [Mass/volume] styleCode="Timothy Verna in Serum or d">Phosphorus Medical Plasma </content>4.0 Center MG/DL<content styleCode="Abner lics"> (2.5-4.5 MG/DL)</conten t> Protein 6.3-8.2 <content Saint [Mass/volume] styleCode="Timothy Verna in Serum or d">Total Medical Plasma Protein Center </content>8.0 G/DL<content styleCode="Abner lics"> (6.3-8.2 G/DL)</content > ID Date Data Source [facility].[id number] 10/04/2019 05:53:00 AM EST [facility] Name Value Range Interpretation Description Data Sup porting Code Source(s) Document(s ) Sodium 137-145 <content Saint [Moles/volume] in styleCode="Bold"> [facility] Serum or Plasma Sodium Medical </content>137 Center MEQ/L<content styleCode="Italic s"> (137-145 MEQ/L)</content> Potassium 3.5-5.3 <content Saint [Moles/volume] in styleCode="Bold"> [facility] Serum or Plasma Potassium Medical </content>4.3 Center MEQ/L<content styleCode="Italic s"> (3.5-5.3 MEQ/L)</content> Chloride 98-107 <content [facility] [Moles/volume] in styleCode="Bold"> Dayday phs Serum or Plasma Chloride Medical </content>98 Center MEQ/L<content styleCode="Italic s"> (98-107 MEQ/L)</content> UNK 9-20 <content Saint styleCode="Bold"> Verna BUN </content>18 Medical MG/DL<content Center styleCode="Italic s"> (9-20 MG/DL)</content> Carbon dioxide, 22-30 Above high <content Saint total normal styleCode="Bold"> Verna [Moles/volume] in Carbon Dioxide Medical Serum or Plasma </content>31 Center MEQ/L H<content styleCode="Italic s"> (22-30 MEQ/L)</content> Creatinine 0.5-1.3 <content Saint [Mass/volume] in styleCode="Bold"> Juanito hs Serum or Plasma Creatinine Medical </content>1.0 Center MG/DL<content styleCode="Italic s"> (0.5-1.3 MG/DL)</content> Glucose 74-106 Above high <content Saint [Mass/volume] in normal styleCode="Bold"> Juanito hs Serum or Plasma Glucose Medical </content>114 Center MG/DL H<content styleCode="Italic s"> (74-106 MG/DL)</content> Aspartate 17-59 Above high <content Saint aminotransferase normal styleCode="Bold"> Juanito hs [Enzymatic Aspartate Medical activity/volume] Aminotransferase Center in Serum or Plasma (AST) </content>69 IU/L H<content styleCode="Italic s"> (17-59 IU/L)</content> Calcium 8.4-10. <content [facility] [Mass/volume] in 2 styleCode="Bold"> Juanito hs Serum or Plasma Calcium Medical </content>9.9 Center MG/DL<content styleCode="Italic s"> (8.4-10.2 MG/DL)</content> UNK > 60 <content Saint styleCode="Bold"> Verna EGFR </content>80 Medical GFR<content Center styleCode="Italic s"> (> 60 GFR)</content> Alkaline 38-126 <content Saint phosphatase styleCode="Bold"> Verna [Enzymatic Alkaline Medical activity/volume] Phosphatase (ALP) Cente r in Serum or Plasma </content>93 IU/L<content styleCode="Italic s"> (38-126 IU/L)</content> Alanine 7-50 Above high <content Saint aminotransferase normal styleCode="Bold"> Juanito hs [Enzymatic Alanine Medical activity/volume] Aminotransferase Center in Serum or Plasma (ALT) </content>60 IU/L H<content styleCode="Italic s"> (7-50 IU/L)</content> Bilirubin.total 0.2-1.3 <content Saint [Mass/volume] in styleCode="Bold"> Juanito hs Serum or Plasma Bilirubin Total Medical </content>1.1 Center MG/DL<content styleCode="Italic s"> (0.2-1.3 MG/DL)</content> Albumin 3.5-5.0 <content Saint [Mass/volume] in styleCode="Bold"> Juanito hs Serum or Plasma Albumin Medical </content>4.1 Center G/DL<content styleCode="Italic s"> (3.5-5.0 G/DL)</content> ID Date Data Source Urinalysis.[id number] 10/01/2019 09:05:00 PM EST [facility] 0 Name Value Range Interpretation Description Data Sup porting Code Source(s) Document(s ) Color of Urine YELLOW <content Saint styleCode="Timothy Verna d">Color, Medical Urine Center </content>YELL OW <content styleCode="Abner lics"> (YELLOW )</content> UNK CLEAR <content Saint [facility]">Urine Medical Clarity Center </content>ALEXIS R <content styleCode="Abner lics"> (CLEAR )</content> Specific 1.015-1.02 Below low normal <content Saint gravity of 5 styleCode="Timothy [facility] Urine by Test d">Urine Medical strip Specific Center [place] </content><= 1.005 L<content styleCode="Abner lics"> (1.015-1.025 )</content> Ketones NEGATIVE <content Saint [Mass/volume] styleCode="Timothy Gillespie in Urine by d">Urine Medical Test strip [facility] </content>NEGA TIVE MG/DL<content styleCode="Abner lics"> (NEGATIVE MG/DL)</conten t> UNK NEGATIVE <content Saint styleCode="Timothy Gays d">Urine Medical Bilirubin Center </content>NEGA TIVE <content styleCode="Abner lics"> (NEGATIVE )</content> Glucose NEGATIVE <content Saint [Mass/volume] styleCode="Timothy Gays in Urine by d">Urine Medical Test strip Glucose Center </content>NEGA TIVE MG/DL<content styleCode="Abner lics"> (NEGATIVE MG/DL)</conten t> pH of Urine by 4.5-8.0 <content Saint Test strip styleCode="Timothy Gays d">Urine pH Medical </content>6.5 Center <content styleCode="Abner lics"> (4.5-8.0 )</content> Hemoglobin NEGATIVE <content Saint [Presence] in styleCode="Timothy Gillespie Urine by Test d">Urine Blood Medical strip </content>SMAL Center L <content styleCode="Abner lics"> (NEGATIVE )</content> Protein NEGATIVE <content Saint [Mass/volume] styleCode="Timothy Gillespie in Urine by d">Urine Medical Test strip Protein Center </content>NEGA TIVE MG/DL<content styleCode="Abner lics"> (NEGATIVE MG/DL)</conten t> Nitrite NEGATIVE <content Saint [Presence] in styleCode="Timothy Gillespie Urine by Test d">Urine Medical strip Nitrite Center </content>NEGA TIVE <content styleCode="Abner lics"> (NEGATIVE )</content> Leukocyte NEGATIVE <content Saint esterase styleCode="Timothy Gays [Presence] in d">Urine Medical Urine by Test Leukocyte Center strip </content>MODE RATE <content styleCode="Abner lics"> (NEGATIVE )</content> Urobilinogen 0.2-1.0 <content Saint [Units/volume] styleCode="Timothy Gillespie in Urine by d">Urine Medical Test strip Urobilinogen Center </content>0.2 MG/DL<content styleCode="Abner lics"> (0.2-1.0 MG/DL)</conten t> UNK 0-3 <content Saint styleCode="Timothy Verna d">Urine White Medical Blood Cell Center </content>20 - 50 HPF<content styleCode="Abner lics"> (0-3 HPF)</content> UNK 0-3 <content Saint styleCode="Timothy Verna d">Urine Red Medical Blood Cell Center </content>3-5 HPF<content styleCode="Abner lics"> (0-3 HPF)</content> UNK NONE SEEN <content Saint styleCode="Timothy Verna d">Epithelial Medical Cell Center </content>5 - 10 HPF<content styleCode="Abner lics"> (NONE SEEN HPF)</content> ID Date Data Source Microbiology.[id number] 10/01/2019 09:05:00 PM EST [facility] 500 Name Value Range Interpretation Code Description Data Arely rce(s) Supporting Document(s ) UNK <item><content [facility] Gillespie styleCode="Bold">Cu Medical Ce nter lture Report </content>
<tab le><tbody><tr><td>S pecimen Number:</td><td>[id number]</td></tr><tr ><td>Sample Collection Date/Time: </td><td>10/01/2019 9:05 PM</td></tr><tr><td >Specimen Source:</td><td>URI NE</td></tr><tr><td >Urine Culture:</td><td>Co llection Plate Date: 10/01/2019 21:12 </td></tr><tr><td>C ulture Status:</td><td>Pre liminary </td></tr><tr><td>C ulture Report:</td><td>Cul ture in progress </td></tr></tbody>< /table></item> UNK <item><content Saint [facility] styleCode="Bold">Cu Medical Ce nter lture Status </content>
<tab le><tbody><tr><td>S pecimen Number:</td><td>[id number]</td></tr><tr ><td>Sample Collection Date/Time: </td><td>10/01/2019 9:05 PM</td></tr><tr><td >Specimen Source:</td><td>URI NE</td></tr><tr><td >Culture Status:</td><td>Fin al </td></tr><tr><td>C ulture Report:</td><td>PLE ASE REPEAT SPECIMEN COLLECTION </td></tr><tr><td>U rine Culture:</td><td>Co llection Plate Date: 10/01/2019 21:12 </td></tr><tr><td>O rganism 1:</td><td>VIRIDANS STREPTOCOCCUS GROUP </td></tr><tr><td>O rganism 2:</td><td>CORYNEBA CTERIUM SPECIES </td></tr><tr><td>O rganism 3:</td><td>COAGULAS E NEGATIVE STAPHYLOCOCCUS </td></tr></tbody>< /table>
<table border="2"><tbody>< tr><td></td><td>1</ td><td>2</td><td>3< /td></tr><tr><td>Co mment</td><td></td> <td></td><td></td>< /tr><tr><td>Result Value</td><td>VIRID ANS STREPTOCOCCUS GROUP </td><td>CORYNEBACT ERIUM SPECIES </td><td>COAGULASE NEGATIVE STAPHYLOCOCCUS </td></tr><tr><td>R esult Status</td><td>Rocio l Result</td><td>Rocio l Result</td><td>Rocio l Result</td></tr><tr ><td></td><td></td> <td></td><td></td>< /tr></tbody></table ></item> ID Date Data Source CHMROUTINECCDA.[id number] 10/01/2019 09:05:00 PM [facility] -0500 Name Value Range Interpretation Description Data Sup porting Code Source(s) Document(s ) Cannabinoids <content Saint [Presence] in styleCode="[facility] Urine by Screen d">Cannabinoid Medical method >50 ng/mL s Center </content>NEGA TIVE NG/ML (Reference Range: not available)<br/ > ID Date Data Source Liver 10/01/2019 08:20:[address] [facility] Profile.[id number] Name Value Range Interpretation Description Data Sup porting Code Source(s) Document(s ) Aspartate 17-59 Above high <content Saint aminotransferase normal styleCode="Bold"> Juanito hs [Enzymatic Aspartate Medical activity/volume] Aminotransferase Center in Serum or Plasma (AST) </content>120 IU/L H<content styleCode="Italic s"> (17-59 IU/L)</content> Alanine 7-50 Above high <content Saint aminotransferase normal styleCode="Bold"> Juanito hs [Enzymatic Alanine Medical activity/volume] Aminotransferase Center in Serum or Plasma (ALT) </content>75 IU/L H<content styleCode="Italic s"> (7-50 IU/L)</content> Albumin 3.5-5.0 <content Saint [Mass/volume] in styleCode="Bold"> Juanito hs Serum or Plasma Albumin Medical </content>4.4 Center G/DL<content styleCode="Italic s"> (3.5-5.0 G/DL)</content> Alkaline 38-126 <content Saint phosphatase styleCode="Bold"> Verna [Enzymatic Alkaline Medical activity/volume] Phosphatase (ALP) Cente r in Serum or Plasma </content>106 IU/L<content styleCode="Italic s"> (38-126 IU/L)</content> Bilirubin.total 0.2-1.3 <content Saint [Mass/volume] in styleCode="Bold"> Juanito hs Serum or Plasma Bilirubin Total Medical </content>0.5 Center MG/DL<content styleCode="Italic s"> (0.2-1.3 MG/DL)</content> UNK 0.0-0.3 <content Saint styleCode="Bold"> Verna Bilirubin, Direct Medical </content>< 0.2 Center MG/DL<content styleCode="Italic s"> (0.0-0.3 MG/DL)</content> ID Date Data Source HematologyRou.[id number] 10/01/2019 08:20:00 PM EST [facility] Name Value Range Interpretation Description Data Sup porting Code Source(s) Document(s ) Erythrocytes 4.4-5.9 <content Saint [#/volume] in styleCode="Bold Verna Blood by ">Red Blood Medical Automated count Cell Count Center </content>4.41 MCUMM<content styleCode="Ital ics"> (4.4-5.9 MCUMM)</content > Leukocytes 4.4-11.0 <content Saint [#/volume] in styleCode="Bold Verna Blood by ">White Blood Medical Automated count Cell Count Center </content>6.54 KCUMM<content styleCode="Ital ics"> (4.4-11.0 KCUMM)</content > Hemoglobin 13.5-17. <content Saint [Mass/volume] in 5 styleCode="Bold Verna Blood ">Hemoglobin Medical </content>15.0 Center G/DL<content styleCode="Ital ics"> (13.5-17.5 G/DL)</content> Erythrocyte mean 80.0-100 <content Saint corpuscular .0 styleCode="Bold Verna volume [Entitic ">Mean Medical volume] by Corpuscular Center Automated count Volume </content>97.7 FL<content styleCode="Ital ics"> (80.0-100.0 FL)</content> Hematocrit 41.0-53. <content Saint [Volume 0 styleCode="Bold Verna Fraction] of ">Hematocrit Medical Blood by </content>43.1 Center Automated count %<content styleCode="Ital ics"> (41.0-53.0 %)</content> Erythrocyte mean 26.0-34. <content Saint corpuscular 0 styleCode="Bold Verna hemoglobin ">Mean Medical [Entitic mass] Corposcular Center by Automated Hemoglobin count </content>34.0 PG<content styleCode="Ital ics"> (26.0-34.0 PG)</content> Erythrocyte 11.5-14. <content Saint distribution 5 styleCode="Bold Verna width [Ratio] by ">Red Cell Medical Automated count Distribution Center Width </content>11.6 %<content styleCode="Ital ics"> (11.5-14.5 %)</content> Erythrocyte mean 32.0-37. <content [facility] corpuscular 0 styleCode="Bold Verna hemoglobin ">Mean Corpus. Medical concentration Hgb Center [Mass/volume] by Concentration Automated count (MCHC) </content>34.8 G/DL<content styleCode="Ital ics"> (32.0-37.0 G/DL)</content> UNK 0 <content Saint styleCode="Bold Verna ">Nucleated Red Medical Blood Cell Center </content>0.0 /100<content styleCode="Ital ics"> (0 /100)</content> Platelets 130-400 <content Saint [#/volume] in styleCode="Bold Verna Blood by ">Platelet Medical Automated count Count Center </content>189 KCUMM<content styleCode="Ital ics"> (130-400 KCUMM)</content > Platelet mean 8.0-11.0 <content Saint volume [Entitic styleCode="Bold Verna volume] in Blood ">Mean Platelet Medical by Automated Volume Center count </content>8.5 FL<content styleCode="Ital ics"> (8.0-11.0 FL)</content> UNK 0.0 <content Saint styleCode="Bold Verna ">Nucleated Red Medical Blood Cell Center Count </content>0.00 KCUMM<content styleCode="Ital ics"> (0.0 KCUMM)</content > ID Date Data Source GFR(Creatinine).[id number] 10/01/2019 08:20:00 PM EST [facility] 0-0500 Name Value Range Interpretation Code Description Data Arely rce(s) Supporting Document(s ) UNK > 60 <content [facility] styleCode="Bold"> Medical Cent er EGFR </content>90 GFR<content styleCode="Italic s"> (> 60 GFR)</content> ID Date Data Source BMP.[id number] 10/01/2019 08:20:00 PM EST [facility] Name Value Range Interpretation Description Data Sup porting Code Source(s) Document(s ) Sodium 137-145 <content Saint [Moles/volume] in styleCode="Bold"> [facility] Serum or Plasma Sodium Medical </content>142 Center MEQ/L<content styleCode="Italic s"> (137-145 MEQ/L)</content> Chloride 98-107 <content Saint [Moles/volume] in styleCode="Bold"> Dayday phs Serum or Plasma Chloride Medical </content>104 Center MEQ/L<content styleCode="Italic s"> (98-107 MEQ/L)</content> UNK 9-20 <content Saint styleCode="Bold"> Verna BUN </content>9 Medical MG/DL<content Center styleCode="Italic s"> (9-20 MG/DL)</content> Carbon dioxide, 22-30 <content Saint total styleCode="Bold"> Verna [Moles/volume] in Carbon Dioxide Medical Serum or Plasma </content>25 Center MEQ/L<content styleCode="Italic s"> (22-30 MEQ/L)</content> Potassium 3.5-5.3 <content Saint [Moles/volume] in styleCode="Bold"> Dayday phs Serum or Plasma Potassium Medical </content>3.9 Center MEQ/L<content styleCode="Italic s"> (3.5-5.3 MEQ/L)</content> Glucose 74-106 <content Saint [Mass/volume] in styleCode="Bold"> Juanito hs Serum or Plasma Glucose Medical </content>92 Center MG/DL<content styleCode="Italic s"> (74-106 MG/DL)</content> Calcium 8.4-10. <content Saint [Mass/volume] in 2 styleCode="Bold"> Juanito hs Serum or Plasma Calcium Medical </content>9.4 Center MG/DL<content styleCode="Italic s"> (8.4-10.2 MG/DL)</content> UNK > 60 <content Saint styleCode="Bold"> Verna EGFR </content>90 Medical GFR<content Center styleCode="Italic s"> (> 60 GFR)</content> Creatinine 0.5-1.3 <content Saint [Mass/volume] in styleCode="Bold"> Juanito hs Serum or Plasma Creatinine Medical </content>0.9 Center MG/DL<content styleCode="Italic s"> (0.5-1.3 MG/DL)</content> Alanine 7-50 Above high <content [facility] aminotransferase normal styleCode="Bold"> Juanito hs [Enzymatic Alanine Medical activity/volume] Aminotransferase Center in Serum or Plasma (ALT) </content>75 IU/L H<content styleCode="Italic s"> (7-50 IU/L)</content> Alkaline 38-126 <content [facility] phosphatase styleCode="Bold"> [facility] [Enzymatic Alkaline Medical activity/volume] Phosphatase (ALP) Cente r in Serum or Plasma </content>106 IU/L<content styleCode="Italic s"> (38-126 IU/L)</content> Aspartate 17-59 Above high <content [facility] aminotransferase normal styleCode="Bold"> Juanito hs [Enzymatic Aspartate Medical activity/volume] Aminotransferase Center in Serum or Plasma (AST) </content>120 IU/L H<content styleCode="Italic s"> (17-59 IU/L)</content> Bilirubin.total 0.2-1.3 <content [facility] [Mass/volume] in styleCode="Bold"> Juanito hs Serum or Plasma Bilirubin Total Medical </content>0.5 Center MG/DL<content styleCode="Italic s"> (0.2-1.3 MG/DL)</content> Albumin 3.5-5.0 <content [facility] [Mass/volume] in styleCode="Bold"> Juanito hs Serum or Plasma Albumin Medical </content>4.4 Center G/DL<content styleCode="Italic s"> (3.5-5.0 G/DL)</content> ID Date Data Source [id number] 07/30/2019 12:00:00 AM EDT [facility] (Ammir Kristy Physician) Name Value Range Interpretation Description Data Sup porting Code Source(s) Document(s ) SODIUM, SERUM 138 Normal (applies [facility] mEq/L to non-numeric (Ammir results) Kristy Physician) GLUCOSE 84 mg/dL Normal (applies [facility] NONFASTING,SERUM to non-numeric (Ammir results) Kristy Physician) POTASSIUM, SERUM 4.2 Normal (applies [facility] mEq/L to non-numeric (Ammir results) Kristy Physician) CHLORIDE, SERUM 102 Normal (applies [facility] mEq/L to non-numeric (Ammir results) Kristy Physician) Carbon dioxide 28 mEq/L Normal (applies [facility] [VFr/PPres] in to non-numeric (Ammir Gas delivery results) Kristy system Physician) Anion gap in 12.2 Normal (applies [facility] Body fluid mEq/L to non-numeric (Ammir results) Kristy Physician) BLOOD UREA 15 mg/dL Normal (applies [facility] NITROGEN to non-numeric (Ammir results) Kristy Physician) CREATININE, 1.00 Normal (applies [facility] SERUM mg/dL to non-numeric (Ammir results) Kristy Physician) CALCIUM, SERUM 10.0 Normal (applies [facility] mg/dL to non-numeric (Ammir results) Kristy Physician) Microalbumin 4.9 g/dL Above high normal [facility] [Mass/time] in (Ammir Urine collected Kristy for unspecified Physician) duration TOTAL PROTEIN 8.6 g/dL Above high normal [facility] (Ammir Kristy Physician) A/G RATIO 1.32 Normal (applies [facility] g/dl to non-numeric (Ammir results) Kristy Physician) Globulin 3.7 gldl Normal (applies [facility] [Mass/time] in to non-numeric (Ammir 24 hour Urine results) Kristy Physician) ALKALINE 110 U/L Normal (applies [facility] PHOSPHATASE, ALP to non-numeric (Ammir results) Kristy Physician) BILIRUBIN, TOTAL 0.8 Normal (applies [facility] mg/dL to non-numeric (Ammir results) Kristy Physician) ALT (SGPT) 58 U/L Above high normal [facility] (Ammir Kristy Physician) EGFR NON AFR 80 Normal (applies [facility] EG[place] mL/min/1 to non-numeric (Ammir .73m2 results) Kristy Physician) AST 66 U/L Above high normal [facility] (Ammir Kristy Physician) EGFR AFR 96 Normal (applies [facility] [place] mL/min/1 to non-numeric (Ammir .73m2 results) Kristy Physician) ID Date Data Source [id number] 07/30/2019 12:00:00 AM EDT [facility] (Ammir Kristy Physician) Name Value Range Interpretation Description Data Sup porting Code Source(s) Document(s ) BILIRUBIN, TOTAL NEGATIVE Normal (applies [facility] to non-numeric (Ammir results) Kristy Physician) GLUCOSE UA NEGATIVE Normal (applies [facility] to non-numeric (Ammir results) Kristy Physician) Specific gravity 1.016 SG Normal (applies [facility] of Pericardial units to non-numeric (Ammir fluid by results) Kristy Refractometry Physician) Ketones NEGATIVE Normal (applies [facility] [Presence] in to non-numeric (Ammir Blood by Tablet results) Kristy Physician) Blood [Presence] SMALL Abnormal [facility] in Urine by (applies to (Ammir Visual non-numeric Kristy results) Physician) Protein NEGATIVE Normal (applies [facility] [Mass/volume] in to non-numeric (Ammir Lower results) Kristy respiratory Physician) specimen pH of Lower 6 Ph units Normal (applies [facility] respiratory to non-numeric (Ammir specimen results) Kristy Physician) Urobilinogen 0-2.0 Normal (applies [facility] [Presence] in to non-numeric (Ammir Urine by results) Kristy Automated test Physician) strip Nitrite POSITIVE Abnormal [facility] [Presence] in (applies to (Ammir Urine by Test non-numeric Kristy strip results) Physician) Color of RED Abnormal [facility] Peritoneal (applies to (Ammir dialysis fluid non-numeric Kristy results) Physician) Leukocyte SMALL Abnormal [facility] esterase (applies to (Ammir [Presence] in non-numeric Kristy Body fluid by results) Physician) Automated test strip TRANSPARENCY TURBID Abnormal [facility] (applies to (Ammir non-numeric Kristy results) Physician) RBC`S 6-10 Abnormal [facility] (applies to (Ammir non-numeric Kristy results) Physician) WBC`S 11-20 Abnormal [facility] (applies to (Ammir non-numeric Kristy results) Physician) White Blood Cell FEW Normal (applies [facility] Clump to non-numeric (Ammir results) Kristy Physician) SQUAMOUS FEW Normal (applies [facility] EPITHELIAL to non-numeric (Ammir results) Kristy Physician) Bacteria MANY Abnormal [facility] [Presence] in (applies to (Ammir Prostatic fluid non-numeric Kristy by Light results) Physician) microscopy MUCOUS FEW Normal (applies [facility] to non-numeric (Ammir results) Kristy Physician) Hyaline Cast 0-2 Normal (applies [facility] to non-numeric (Ammir results) Kristy Physician) Amorphous FEW Abnormal [facility] Crystal (applies to (Ammir non-numeric Kristy results) Physician) ID Date Data Source [id number] 07/30/2019 12:00:00 AM EDT [facility] (Ammir Kristy Physician) Name Value Range Interpretation Code Description Data Supporting Source(s) Document(s ) ALPHA FETO 3.8 ng/mL Normal (applies to [facility] (Am evon PROTEIN, non-numeric Kristy TUMOR results) Physician) ID Date Data Source [id number] 07/30/2019 12:00:00 AM EDT [facility] (Ammir Kristy Physician) Name Value Range Interpretation Description Data Sup porting Code Source(s) Document(s ) CANCER 6.1 U/mL Normal (applies to [facility] (Amm ir ANTIGEN 125 non-numeric Kristy results) Physician) ID Date Data Source [id number] 07/30/2019 12:00:00 AM EDT [facility] (Ammir Kristy Physician) Name Value Range Interpretation Code Description Data Arely rce(s) Supporting Document(s ) CEA 2.1 ng/mL Normal (applies to [facility] (Amm ir non-numeric results) Kristy Physician) ID Date Data Source [id number] 07/30/2019 12:00:00 AM EDT [facility] (Ammir Kristy Physician) Name Value Range Interpretation Description Data Sup porting Code Source(s) Document(s ) CANCER 9.0 U/mL Normal (applies to [facility] (Amm ir ANTIGEN 19-9 non-numeric Kristy results) Physician) ID Date Data Source [id number] 07/30/2019 12:00:00 AM EDT [facility] (Ammir Kristy Physician) Name Value Range Interpretation Description Data Sup porting Code Source(s) Document(s ) Hemoglobin A1c 4.8 % Normal (applies to [facility] (Ammir in Blood non-numeric Kristy results) Physician) ID Date Data Source [id number] 07/30/2019 12:00:00 AM EDT [facility] (Ammir Kristy Physician) Name Value Range Interpretation Description Data Sup porting Code Source(s) Document(s ) VITAMIN D 18.92 Below low normal [facility] (Ammir 25-HYDROXY ng/mL Kristy Physician) ID Date Data Source [id number] 07/30/2019 12:00:00 AM EDT [facility] (Ammir Kristy Physician) Name Value Range Interpretation Description Data Sup porting Code Source(s) Document(s ) FOLATE SERUM 14.8 Normal (applies to [facility] ( Ammir ng/mL non-numeric Kristy results) Physician) VITAMIN B12 897 pg/mL Normal (applies to [facility] (A mmir non-numeric Kristy results) Physician) ID Date Data Source [id number] 07/30/2019 12:00:00 AM EDT [facility] (Ammir Kristy Physician) Name Value Range Interpretation Description Data Sup porting Code Source(s) Document(s ) RBC 4.6 Normal (applies [facility] 10(6)/uL to non-numeric (Ammir results) Kristy Physician) WBC 8.2 Normal (applies [facility] 10(3)/uL to non-numeric (Ammir results) Kristy Physician) Hemoglobin 15.5 g/dL Normal (applies [facility] [Mass/volume] to non-numeric (Ammir in Mixed venous results) Kristy blood by Physician) Oximetry Hematocrit 45.0 % Normal (applies [facility] [Pure volume to non-numeric (Ammir fraction] of results) Kristy Blood by Physician) Automated count MCH 34 pg Above high normal [facility] (Ammir Kristy Physician) MCV 97.4 fL Normal (applies [facility] to non-numeric (Ammir results) Kristy Physician) MCHC 34 g/dL Normal (applies [facility] to non-numeric (Ammir results) Kristy Physician) RDWSD 42.0 fL Normal (applies [facility] to non-numeric (Ammir results) Kristy Physician) RDWCV 11.8 % Normal (applies [facility] to non-numeric (Ammir results) Kristy Physician) Platelet Count 233 Normal (applies [facility] 10(3)/uL to non-numeric (Ammir results) Kristy Physician) MPV 9.4 fL Below low normal [facility] (Ammir Kristy Physician) Neutrophil Abs 5.54 Normal (applies [facility] 10(3)/uL to non-numeric (Ammir results) Kristy Physician) Lymphocyte Abs 1.53 Normal (applies [facility] 10(3)/uL to non-numeric (Ammir results) Kristy Physician) Eosinophil Abs 0.15 Normal (applies [facility] 10(3)/uL to non-numeric (Ammir results) Kristy Physician) Monocyte Abs 0.89 Normal (applies [facility] 10(3)/uL to non-numeric (Ammir results) Kristy Physician) Immature 0.02 Normal (applies [facility] Granulocyte Abs 10(3)/uL to non-numeric (Ammir results) Kirsty Physician) Basophil Abs 0.09 Above high normal [facility] 10(3)/uL (Ammir Kristy Physician) Neutrophil % 67.50 % Normal (applies [facility] to non-numeric (Ammir results) Kristy Physician) Lymphocyte % 19 % Normal (applies [facility] to non-numeric (Ammir results) Kristy Physician) Monocyte % 10.9 % Normal (applies [facility] to non-numeric (Ammir results) Kristy Physician) Eosinophil % 1.8 % Normal (applies [facility] to non-numeric (Ammir results) Kristy Physician) Immature 0.20 % Normal (applies [facility] Granulocyte % to non-numeric (Ammir results) Kristy Physician) Basophil % 1.1 % Normal (applies [facility] to non-numeric (Ammir results) Kristy Physician) NRBC Abs 0.00 Normal (applies [facility] 10(3)/uL to non-numeric (Ammir results) Kristy Physician) NRBC % 0.0 % Normal (applies [facility] to non-numeric (Ammir results) Kristy Physician) ID Date Data Source [id number] 07/30/2019 12:00:00 AM EDT [facility] (Ammir Kristy Physician) Name Value Range Interpretation Description Data Sup porting Code Source(s) Document(s ) MICROALBUMIN 3.9 Normal (applies [facility] URINE mg/dL to non-numeric (Ammir results) Kristy Physician) CREATININE, 134.5 Normal (applies [facility] URINE mg/dL to non-numeric (Ammir results) Kristy Physician) MICROALBUMIN/CRE 29.0 Normal (applies [facility] ATININ RATIO mg/g to non-numeric (Ammir creat results) Kristy Physician) ID Date Data Source [id number] 07/30/2019 12:00:00 AM EDT [facility] (Ammir Kristy Physician) Name Value Range Interpretation Description Data Sup porting Code Source(s) Document(s ) TSH,3RD 1.92 Normal (applies to [facility] GENERATION uIU/mL non-numeric (Ammir results) Kristy Physician) T4 FREE, 1.18 Normal (applies to [facility] THYROXINE ng/dL non-numeric (Ammir results) Kristy Physician) ID Date Data Source [id number] 07/30/2019 12:00:00 AM EDT [facility] (Ammir Kristy Physician) Name Value Range Interpretation Description Data Sup porting Code Source(s) Document(s ) ORGANISM Abnormal (applies [facility] to non-numeric (Ammir results) Kristy Physician) Comment Abnormal (applies [facility] [Interpretation] to non-numeric (Ammir Left eye Narrative results) Kristy Ophthalmometer Physician) ID Date Data Source [id number] 07/30/2019 12:00:00 AM EDT [facility] (Ammir Kristy Physician) Name Value Range Interpretation Description Data Sup porting Code Source(s) Document(s ) Cholesterol 175 Normal (applies [facility] [Moles/volume] mg/dL to non-numeric (Ammir in Pericardial results) Kristy fluid Physician) LDL CALCULATION 100.8 Normal (applies [facility] mg/dL to non-numeric (Ammir results) Kristy Physician) CHOL/HDL RATIO 3.13 Normal (applies [facility] ratio to non-numeric (Ammir results) Kristy Physician) VLDL CALCULATION 18.2 Normal (applies [facility] mg/dl to non-numeric (Ammir results) Kristy Physician) HDL CHOLESTEROL 56 mg/dL Normal (applies [facility] to non-numeric (Ammir results) Kristy Physician) TRIGLYCERIDES 91 mg/dL Normal (applies [facility] to non-numeric (Ammir results) Kristy Physician) ID Date Data Source [id number] 07/30/2019 12:00:00 AM EDT [facility] (Ammir Kristy Physician) Name Value Range Interpretation Description Data Sup porting Code Source(s) Document(s ) NGYN RESULTS Specimen# Normal (applies to [facility] ( Ammir [id number] non-numeric Kristy 52 results) Physician) ID Date Data Source [id number] 07/30/2019 12:00:00 AM EDT [facility] (Ammir Kristy Physician) Name Value Range Interpretation Code Description Data Supporting Source(s) Document(s ) PSA, TOTAL 2.59 ng/mL Normal (applies to [facility] (A mmir non-numeric Kristy results) Physician) ID Date Data Source [id number] 07/30/2019 12:00:00 AM EDT [facility] (Ammir Kristy Physician) Name Value Range Interpretation Code Description Data Arely rce(s) Supporting Document(s ) PSA, FREE 0.87 ng/mL Normal (applies to [facility] (Am evon non-numeric Kristy results) Physician) ID Date Data Source [id number] 07/30/2019 12:00:00 AM EDT [facility] (Ammir Kristy Physician) Name Value Range Interpretation Code Description Data Arely rce(s) Supporting Document(s ) %PSA, Test not Normal (applies to [facility] (Amm ir FREE performed. non-numeric Kristy results) Physician) ID Date Data Source [id number] 07/30/2019 12:00:00 AM EDT [facility] (Ammir Kristy Physician) Name Value Range Interpretation Code Description Data Arely rce(s) Supporting Document(s ) REFLEX FOR Abnormal (applies [facility] (Amm ir P53 - 1 UNIT to non-numeric Kristy results) Physician) ID Date Data Source [id number] 12/24/2017 12:00:00 AM EST [facility] (Ammir Kristy Physician) Name Value Range Interpretation Description Data Sup porting Code Source(s) Document(s ) FOLATE SERUM 17.2 Above high normal [facility] (A mmir ng/mL Kristy Physician) VITAMIN B12 1018 Above high normal [facility] (Am evon pg/mL Kristy Physician) ID Date Data Source [id number] 12/24/2017 12:00:00 AM EST [facility] (Ammir Kristy Physician) Name Value Range Interpretation Description Data Sup porting Code Source(s) Document(s ) HERPES 48.6 Above high normal [facility] (Ammi r SIMPLEX INDEX Kristy VIRUS-1 IGG Physician) ID Date Data Source [id number] 12/24/2017 12:00:00 AM EST [facility] (Ammir Kristy Physician) Name Value Range Interpretation Description Data Sup porting Code Source(s) Document(s ) HERPES 0.2 INDEX Normal (applies to [facility] (Amm ir SIMPLEX non-numeric Kristy VIRUS-2 IgG results) Physician) ID Date Data Source [id number] 12/24/2017 12:00:00 AM EST [facility] (Ammir Kristy Physician) Name Value Range Interpretation Description Data Sup porting Code Source(s) Document(s ) SEX HORMONE 86.8 Above high normal [facility] BINDING GLOBU nmol/L (Ammir Kristy Physician) TESTOSTERONE 473.09 Normal (applies [facility] TOTAL ng/dL to non-numeric (Ammir results) Kristy Physician) TESTOSTERONE 4.8 Normal (applies [facility] FREE CALCULATED ng/dL to non-numeric (Ammir results) Kristy Physician) FREE 1.0 % Normal (applies [facility] TESTOSTERONE% to non-numeric (Ammir results) Kristy Physician) ID Date Data Source [id number] 12/24/2017 12:00:00 AM EST [facility] (Ammir Kristy Physician) Name Value Range Interpretation Description Data Sup porting Code Source(s) Document(s ) Microalbumin 4.5 g/dL Normal (applies [facility] [Mass/time] in to non-numeric (Ammir Urine collected results) Kristy for unspecified Physician) duration ID Date Data Source [id number] 12/24/2017 12:00:00 AM EST [facility] (Ammir Kristy Physician) Name Value Range Interpretation Description Data Sup porting Code Source(s) Document(s ) CHLAMYDIA NEGATIVE Normal (applies [facility] TRACHOMATIS RNA to non-numeric (Ammir results) Kristy Physician) NEISSERIA NEGATIVE Normal (applies [facility] GONORRHOEAE RNA to non-numeric (Ammir results) Kristy Physician) ID Date Data Source [id number] 12/24/2017 12:00:00 AM EST [facility] (Ammir Kristy Physician) Name Value Range Interpretation Description Data Sup porting Code Source(s) Document(s ) WBC 7.1 Normal (applies to [facility] 10(3)/uL non-numeric (Ammir results) Kristy Physician) RBC 5.1 Normal (applies to [facility] 10(6)/uL non-numeric (Ammir results) Kristy Physician) Hemoglobin 16.4 g/dL Normal (applies to [facility] [Mass/volume] non-numeric (Ammir in Mixed results) Kristy venous blood Physician) by Oximetry MCV 94.3 fL Normal (applies to [facility] non-numeric (Ammir results) Kristy Physician) Hematocrit 47.8 % Normal (applies to [facility] [Pure volume non-numeric (Ammir fraction] of results) Kristy Blood by Physician) Automated count MCHC 34 g/dL Normal (applies to [facility] non-numeric (Ammir results) Kristy Physician) MCH 32 pg Normal (applies to [facility] non-numeric (Ammir results) Kristy Physician) RDWSD 39.6 fL Normal (applies to [facility] non-numeric (Ammir results) Kristy Physician) RDWCV 11.6 % Normal (applies to [facility] non-numeric (Ammir results) Kristy Physician) PLT 211 Normal (applies to [facility] 10(3)/uL non-numeric (Ammir results) Kristy Physician) NE# 4.97 Normal (applies to [facility] 10(3)/uL non-numeric (Ammir results) Kristy Physician) MPV 9.7 fL Normal (applies to [facility] non-numeric (Ammir results) Kristy Physician) LY# 1.31 Normal (applies to [facility] 10(3)/uL non-numeric (Ammir results) Kritsy Physician) MO# 0.67 Normal (applies to [facility] 10(3)/uL non-numeric (Ammir results) Kristy Physician) IG# 0.02 Normal (applies to [facility] 10(3)/uL non-numeric (Ammir results) Kristy Physician) EO# 0.08 Normal (applies to [facility] 10(3)/uL non-numeric (Ammir results) Kristy Physician) NE% 69.60 % Normal (applies to [facility] non-numeric (Ammir results) Kristy Physician) MO% 9.4 % Normal (applies to [facility] non-numeric (Ammir results) Kristy Physician) LY% 18 % Below low normal [facility] (Ammir Kristy Physician) EO% 1.1 % Normal (applies to [facility] non-numeric (Ammir results) Kristy Physician) BA% 1.3 % Normal (applies to [facility] non-numeric (Ammir results) Kristy Physician) IG% 0.30 % Normal (applies to [facility] non-numeric (Ammir results) Kristy Physician) ID Date Data Source [id number] 12/24/2017 12:00:00 AM EST [facility] (Ammir Kristy Physician) Name Value Range Interpretation Code Description Data Supporting Source(s) Document(s ) PSA, TOTAL 2.37 ng/mL Normal (applies to [facility] (A mmir non-numeric Kristy results) Physician) ID Date Data Source [id number] 12/24/2017 12:00:00 AM EST [facility] (Ammir Kristy Physician) Name Value Range Interpretation Code Description Data Arely rce(s) Supporting Document(s ) PSA, FREE 0.74 ng/mL Normal (applies to [facility] (Am evon non-numeric Kristy results) Physician) ID Date Data Source [id number] 12/24/2017 12:00:00 AM EST [facility] (Ammir Kristy Physician) Name Value Range Interpretation Code Description Data Arely rce(s) Supporting Document(s ) %PSA, Test not Normal (applies to [facility] (Amm ir FREE performed. non-numeric Kristy results) Physician) ID Date Data Source [id number] 12/24/2017 12:00:00 AM EST [facility] (Ammir Kristy Physician) Name Value Range Interpretation Description Data Sup porting Code Source(s) Document(s ) T4 FREE, 1.11 Normal (applies to [facility] THYROXINE ng/dL non-numeric (Ammir results) Kristy Physician) TSH,3RD 1.93 Normal (applies to [facility] GENERATION uIU/mL non-numeric (Ammir results) Kristy Physician) ID Date Data Source [id number] 12/24/2017 12:00:00 AM EST [facility] (Ammir Kristy Physician) Name Value Range Interpretation Code Description Data Arely rce(s) Supporting Document(s ) SYPHILIS IGG <0.1 Normal (applies to [facility] ( Ammir non-numeric Kristy results) Physician) ID Date Data Source [id number] 12/24/2017 12:00:00 AM EST [facility] (Ammir Kristy Physician) Name Value Range Interpretation Description Data Sup porting Code Source(s) Document(s ) GLUCOSE UA NEGATIVE Normal (applies [facility] to non-numeric (Ammir results) Kristy Physician) BILIRUBIN, TOTAL NEGATIVE Normal (applies [facility] to non-numeric (Ammir results) Kristy Physician) Ketones NEGATIVE Normal (applies [facility] [Presence] in to non-numeric (Ammir Blood by Tablet results) Kristy Physician) Specific gravity 1.013 SG Normal (applies [facility] of Pericardial units to non-numeric (Ammir fluid by results) [facility] Refractometry Physician) Blood [Presence] NEGATIVE Normal (applies [facility] in Urine by to non-numeric (Ammir Visual results) Kristy Physician) pH of Lower 6 Ph units Normal (applies [facility] respiratory to non-numeric (Ammir specimen results) Kristy Physician) Protein NEGATIVE Normal (applies [facility] [Mass/volume] in to non-numeric (Ammir Lower results) Kristy respiratory Physician) specimen Urobilinogen 0-2.0 Normal (applies [facility] [Presence] in to non-numeric (Ammir Urine by results) Kristy Automated test Physician) strip Leukocyte NEGATIVE Normal (applies [facility] esterase to non-numeric (Ammir [Presence] in results) Kristy Body fluid by Physician) Automated test strip Nitrite NEGATIVE Normal (applies [facility] [Presence] in to non-numeric (Ammir Urine by Test results) Kristy strip Physician) TRANSPARENCY CLEAR Normal (applies [facility] to non-numeric (Ammir results) Kristy Physician) Color of YELLOW Normal (applies [facility] Peritoneal to non-numeric (Ammir dialysis fluid results) Kristy Physician) ID Date Data Source [id number] 12/24/2017 12:00:00 AM EST [facility] (Ammir Kristy Physician) Name Value Range Interpretation Description Data Sup porting Code Source(s) Document(s ) PROTHROMBIN 13.9 sec Normal (applies [facility] TIME, PT to non-numeric (Ammir results) Kristy Physician) INR 1.03 Normal (applies [facility] to non-numeric (Ammir results) Kristy Physician) ID Date Data Source [id number] 12/24/2017 12:00:00 AM EST [facility] (Ammir Kristy Physician) Name Value Range Interpretation Code Description Data Arely rce(s) Supporting Document(s ) APTT 33.70 sec Normal (applies to [facility] (Amm ir non-numeric results) Kristy Physician) ID Date Data Source [id number] 12/24/2017 12:00:00 AM EST [facility] (Ammir Kristy Physician) Name Value Range Interpretation Description Data Sup porting Code Source(s) Document(s ) HIV 1,2 NONREACTIVE Normal (applies [facility] AG/AB,4TH to non-numeric (Ammir GENERATION results) Kristy Physician) ID Date Data Source [id number] 12/24/2017 12:00:00 AM EST [facility] (Ammir Kristy Physician) Name Value Range Interpretation Description Data Sup porting Code Source(s) Document(s ) VITAMIN D 32.7 Normal (applies to [facility] (Amm ir 1.25 pg/mL non-numeric Kristy results) Physician) ID Date Data Source [id number] 12/24/2017 12:00:00 AM EST [facility] (Ammir Kristy Physician) Name Value Range Interpretation Description Data Sup porting Code Source(s) Document(s ) GAMMA GLUTAMYL 129 U/L Above high normal [facility] (Ammir TRANSFERAS Kristy Physician) ID Date Data Source [id number] 12/24/2017 12:00:00 AM EST [facility] (Ammir Kristy Physician) Name Value Range Interpretation Description Data Sup porting Code Source(s) Document(s ) HEPATITIS A REACTIVE Normal (applies to [facility] (A mmir AB non-numeric Kristy results) Physician) ID Date Data Source [id number] 12/24/2017 12:00:00 AM EST [facility] (Ammir Kristy Physician) Name Value Range Interpretation Description Data Sup porting Code Source(s) Document(s ) HEPATITIS BS NONREACTIVE Normal (applies [facility] AG SCREEN to non-numeric (Ammir results) Kristy Physician) ID Date Data Source [id number] 12/24/2017 12:00:00 AM EST [facility] (Ammir Kristy Physician) Name Value Range Interpretation Code Description Data Arely rce(s) Supporting Document(s ) HBeAB Eqv Normal (applies to [facility] (Amm ir non-numeric results) Kristy Physician) ID Date Data Source [id number] 12/24/2017 12:00:00 AM EST [facility] (Ammir Kristy Physician) Name Value Range Interpretation Description Data Sup porting Code Source(s) Document(s ) HEPATITIS C REACTIVE Normal (applies to [facility] (A mmir AB QL non-numeric Kristy results) Physician) ID Date Data Source [id number] 12/24/2017 12:00:00 AM EST [facility] (Ammir Kristy Physician) Name Value Range Interpretation Description Data Sup porting Code Source(s) Document(s ) HEPATITIS B REACTIVE Normal (applies to [facility] (A mmir CORE AB QL non-numeric Kristy results) Physician) ID Date Data Source [id number] 12/24/2017 12:00:00 AM EST [facility] (Ammir Kristy Physician) Name Value Range Interpretation Description Data Sup porting Code Source(s) Document(s ) HEPATITIS B 99.44 Normal (applies to [facility] (A mmir SURFACE AB (REACTIVE non-numeric Kristy ) results) Physician) ID Date Data Source [id number] 12/24/2017 12:00:00 AM EST [facility] (Ammir Kristy Physician) Name Value Range Interpretation Description Data Sup porting Code Source(s) Document(s ) HEPATITIS BE NONREACTIVE Normal (applies [facility] to non-numeric (Ammir results) Kristy Physician) ID Date Data Source [id number] 12/24/2017 12:00:00 AM EST [facility] (Ammir Kristy Physician) Name Value Range Interpretation Description Data Sup porting Code Source(s) Document(s ) GLUCOSE 71 mg/dL Normal (applies to [facility] (Amm ir NONFASTING,S non-numeric Kristy JANE results) Physician) SODIUM, 139 mEq/L Normal [facility] ([facility] SERUM non-numeric Kristy results) Physician) POTASSIUM, 4.9 mEq/L Normal ([facility] (Am evon SERUM non-numeric Kristy results) Physician) CHLORIDE, 104 mEq/L Normal (applies to [facility] (Amm ir SERUM non-numeric Kristy results) Physician) Anion gap in 13.9 Normal ([facility] ( Ammir Body fluid mEq/L non-numeric Kristy results) Physician) Carbon 26 mEq/L Normal (applies to [facility] (Amm ir dioxide non-numeric Kristy [VFr/PPres] results) Physician) in Gas delivery system BLOOD UREA 10 mg/dL Normal (applies to [facility] (Am evon NITROGEN non-numeric Kristy results) Physician) CALCIUM, 10.0 Normal (applies to [facility] (Amm ir SERUM mg/dL non-numeric Kristy results) Physician) CREATININE, 0.90 Normal (applies to [facility] (A mmir SERUM mg/dL non-numeric Kristy results) Physician) TOTAL 8.0 g/dL Normal (applies to [facility] (Amm ir PROTEIN non-numeric Kristy results) Physician) Globulin 3.5 gldl Normal (applies to [facility] (Amm ir [Mass/time] non-numeric Kristy in 24 hour results) Physician) Urine BILIRUBIN, 0.5 mg/dL Normal (applies to [facility] (Am evon TOTAL non-numeric Kristy results) Physician) A/G RATIO 1.29 g/dl Normal (applies to [facility] (Am evon non-numeric Kristy results) Physician) ALT (SGPT) 61 U/L Above high normal [facility] ([facility]mm [facility] Kristy Physician) ALKALINE 101 U/L Normal (applies to [facility] (Amm ir PHOSPHATASE, non-numeric Kristy ALP results) Physician) AST 77 U/L Above high normal [facility] (Ammi r Kristy Physician) EGFR NON AFR 91 Above high normal [facility] (A mmir EGYPTIAN mL/min/1. Kristy 73m2 Physician) EGFR AFR 110 Above high normal [facility] (Ammi r EG[place] mL/min/1. Kristy 73m2 Physician) ID Date Data Source [id number] 12/24/2017 12:00:00 AM EST [facility] (Ammir Kristy Physician) Name Value Range Interpretation Description Data Sup porting Code Source(s) Document(s ) Cholesterol 163 Normal (applies [facility] [Moles/volume] mg/dL to non-numeric (Ammir in Pericardial results) Kristy fluid Physician) CHOL/HDL RATIO 2.33 Normal (applies [facility] ratio to non-numeric (Ammir results) Kristy Physician) LDL CALCULATION 76.4 Normal (applies [facility] mg/dL to non-numeric (Ammir results) Kristy Physician) HDL CHOLESTEROL 70 mg/dL Above high normal [facility] (Ammir Kristy Physician) TRIGLYCERIDES 83 mg/dL Normal (applies [facility] to non-numeric (Ammir results) Kristy Physician) VLDL CALCULATION 16.6 Normal (applies [facility] mg/dl to non-numeric (Ammir results) Kristy Physician) ID Date Data Source [id number] 12/24/2017 12:00:00 AM EST [facility] (Ammir Kristy Physician) Name Value Range Interpretation Description Data Sup porting Code Source(s) Document(s ) HEPATITIS NONREACTIVE Normal (applies [facility] A(IGM) to non-numeric (Ammir results) Kristy Physician) ID Date Data Source [id number] 12/24/2017 12:00:00 AM EST [facility] (Ammir Kristy Physician) Name Value Range Interpretation Code Description Data Arely rce(s) Supporting Document(s ) HCV 4557 Normal (applies to [facility] (Amm ir RNA,QN,RONEY non-numeric results) Kristy L TIME PCR Physician) HCV 3.66 Normal (applies to [facility] (Amm ir RNA,QN,RONEY non-numeric results) Kristy L TIME PCR Physician) Procedure Social History Code Duration Value Status Description Data Source(s ) Smoking 07/05/2020 Unknown if ever completed Unknown if ever [facility] EN (Ammir 12:00:00 AM EDT smoked smoked Kristy Physician) Smoking 07/05/2020 - Cigarettes: 5/6 completed - Cigarettes: 5/6 [facility] (Ammir 12:00:00 AM EDT PER DAY. - Alcohol: PER DAY. - Kristy 4-6 BEERS/DAY. - Alcohol: 4-6 Phys ician) Recreational Drugs: BEERS/DAY. - Never Recreational Drugs: Never Smoking 04/26/2020 Daily Smoker completed Daily Smoker [facility] 11:24:00 AM EDT Medical C enter Smoking 04/26/2020 Daily Smoker completed Daily Smoker [facility] 11:10:00 AM EDT Medical C enter Smoking 04/26/2020 Daily Smoker completed Daily Smoker [facility] 10:52:00 AM EDT Medical C enter Smoking 04/16/2020 Daily Smoker completed Daily Smoker [facility] 12:34:00 AM EDT Medical C enter Smoking 04/16/2020 Daily Smoker completed Daily Smoker [facility] 12:21:00 AM EDT Medical C enter Smoking 2020 Daily Smoker completed Daily Smoker [facility] 11:00:00 PM EDT Medical C enter Smoking 10/03/2019 Daily Smoker completed Daily Smoker [facility] 03:50:00 AM EST Medical C enter Smoking 10/02/2019 Daily Smoker completed Daily Smoker [facility] 04:32:00 PM EST Medical C enter Smoking 10/02/2019 Daily Smoker completed Daily Smoker [facility] 10:00:00 AM EST Medical C enter Smoking 10/01/2019 Daily Smoker completed Daily Smoker [facility] 07:22:00 PM EST Medical C enter Vital Signs ID Date Data Source UNK Name Value Range Interpretation Code Description Data Source(s) Body height 64 in 64 in [facility] (Ammir Kristy Physician) Body weight 121 lb 121 lb [facility] (Ammir Kristy Physician) Systolic blood 132 mm[Hg] 132 mm[Hg] [facility] (Am evon pressure Kristy Physician) Diastolic blood 76 mm[Hg] 76 mm[Hg] [facility] (A mmir pressure Kristy Physician) Body mass index 20.8 kg/m2 20.8 kg/m2 [facility] (A mmir (BMI) [Ratio] Kristy Physician) Inhaled oxygen 88 % 88 % [facility] (Am evon concentration Kristy Physician) Heart rate 108 /min 108 /min [facility] (Ammir Kristy Physician) Body weight 62.113212 62.840644 kg [facility] Measured kg [facility] Body temperature 36.762045 36.039242 [facility] Respiratory rate 19 /min 19 /min Health system Oxygen saturation 97 % 97 % [facility] Johan rajat in Arterial blood [facility] by Pulse oximetry Heart rate 109 /min 109 /min [facility] Body height 167.274713 167.502034 cm [facility] Diastolic blood 70 mm[Hg] 70 mm[Hg] [facility] pressure Medical Center Systolic blood 122 mm[Hg] 122 mm[Hg] [facility] Body mass index 22.0 kg/m2 22.0 kg/m2 [facility] (BMI) [Ratio] Medical [facility] ter Oxygen saturation 95 % 95 % [facility] osephs in [facility] blood [facility] by Pulse oximetry Body temperature 36.164876 36.107862 [facility] Respiratory rate 18 /min 18 /min Health system Oxygen saturation 97 % 97 % [facility] J osephs in Arterial blood [facility] by Pulse oximetry Heart rate 101 /min 101 /min [facility] Diastolic blood 56 mm[Hg] 56 mm[Hg] [facility] Systolic blood 96 mm[Hg] 96 mm[Hg] [facility] Body temperature 36.978220 36.020798 [facility] Respiratory rate 17 /min 17 /min Health system Heart rate 100 /min 100 /min [facility] Body temperature 36.061023 36.348695 [facility] Respiratory rate 16 /min 16 /min Health system Heart rate 79 /min 79 /min [facility] Diastolic blood 73 mm[Hg] 73 mm[Hg] [facility] Systolic blood 133 mm[Hg] 133 mm[Hg] [facility] Body temperature 37.993141 37.922970 [facility] Respiratory rate 18 /min 18 /min Health system Heart rate 87 /min 87 /min [facility] Diastolic blood 66 mm[Hg] 66 mm[Hg] [facility] Center Systolic blood 126 mm[Hg] 126 mm[Hg] [facility] Body temperature 37.256191 37.156880 [facility] Respiratory rate 18 /min 18 /min Health system Heart rate 70 /min 70 /min [facility] Diastolic blood 71 mm[Hg] 71 mm[Hg] [facility] Center Systolic blood 132 mm[Hg] 132 mm[Hg] [facility] Body temperature 37.959159 37.864937 [facility] Respiratory rate 18 /min 18 /min Health system Heart rate 95 /min 95 /min [facility] Diastolic blood 75 mm[Hg] 75 mm[Hg] [facility] pressure Medical Taiban Systolic blood 118 mm[Hg] 118 mm[Hg] [facility] Body temperature 36.637010 36.532097 [facility] Respiratory rate 18 /min 18 /min Health system Heart rate 100 /min 100 /min [facility] Diastolic blood 69 mm[Hg] 69 mm[Hg] [facility] Systolic blood 138 mm[Hg] 138 mm[Hg] [facility] Body weight 56.914142 56.474014 kg [facility] Measured kg [facility] Body height 172.717012 172.126414 cm [facility] Body mass index 18.81 kg/m2 18.81 kg/m2 [facility] (BMI) [Ratio] Medical [facility] ter Body weight 56.010456 56.226071 kg [facility] Measured kg Medical Center Body height 175.379846 175.500176 cm [facility] Body mass index 18.26 kg/m2 18.26 kg/m2 [facility] (BMI) [Ratio] Medical [facility] ter Oxygen saturation 98 % 98 % [facility] in Arterial blood [facility] Center by Pulse oximetry Oxygen saturation 98 % 98 % [facility] in Arterial blood [facility] by Pulse oximetry Oxygen saturation 97 % 97 % [facility] in Arterial blood [facility] by Pulse oximetry Body temperature 37.510389 37.931368 [facility] Respiratory rate 18 /min 18 /min Health system Heart rate 97 /min 97 /min [facility] Diastolic blood 96 mm[Hg] 96 mm[Hg] [facility] Systolic blood 162 mm[Hg] 162 mm[Hg] [facility] Oxygen saturation 97 % 97 % [facility] in [facility] blood [facility] by Pulse oximetry Body temperature 36.313938 36.045518 [facility] Respiratory rate 18 /min 18 /min Health system Heart rate 76 /min 76 /min [facility] Diastolic blood 78 mm[Hg] 78 mm[Hg] [facility] pressure Medical Center Systolic blood 132 mm[Hg] 132 mm[Hg] [facility] Oxygen saturation 96 % 96 % [facility] in Arterial blood [facility] by Pulse oximetry Body temperature 37.933408 37.338471 [facility] Respiratory rate 18 /min 18 /min Health system Heart rate 82 /min 82 /min [facility] Diastolic blood 82 mm[Hg] 82 mm[Hg] [facility] Systolic blood 138 mm[Hg] 138 mm[Hg] [facility] Body temperature 36.848980 36.818080 [facility] Respiratory rate 17 /min 17 /min Health system Oxygen saturation 97 % 97 % [facility] in [facility] blood [facility] by Pulse oximetry Heart rate 78 /min 78 /min [facility] Diastolic blood 76 mm[Hg] 76 mm[Hg] [facility] Systolic blood 140 mm[Hg] 140 mm[Hg] [facility] Body temperature 36.613806 36.432505 [facility] Respiratory rate 17 /min 17 /min Health system Oxygen saturation 97 % 97 % [facility] in [facility] blood [facility] by Pulse oximetry Heart rate 80 /min 80 /min [facility] Diastolic blood 78 mm[Hg] 78 mm[Hg] [facility] Systolic blood 134 mm[Hg] 134 mm[Hg] [facility] Oxygen saturation 98 % 98 % [facility] in [facility] blood [facility] by Pulse oximetry Body weight 58.123161 58.591601 kg [facility] Measured kg [facility] Body height 162.406153 162.883945 cm [facility] Body mass index 22.3 kg/m2 22.3 kg/m2 [facility] (BMI) [Ratio] Medical [facility] ter Body weight 127 lb 127 lb [facility] (Ammir Kristy Physician) Systolic blood 124 mm[Hg] 124 mm[Hg] [facility] (Am evon pressure Kristy Physician) Diastolic blood 80 mm[Hg] 80 mm[Hg] [facility] (A mmir pressure Kristy Physician) Inhaled oxygen 96 % 96 % [facility] (Am evon concentration Kristy Physician) Heart rate 75 /min 75 /min [facility] (Ammir Kristy Physician) Systolic blood 120 mm[Hg] 120 mm[Hg] [facility] (Am evon pressure Kristy Physician) Diastolic blood 80 mm[Hg] 80 mm[Hg] [facility] (A mmir pressure Kristy Physician) Inhaled oxygen 98 % 98 % [facility] (Am evon concentration Kristy Physician) Heart rate 80 /min 80 /min [facility] (Ammir Kristy Physician) Body height 65 in 65 in [facility] (Ammir Kristy Physician) Systolic blood 120 mm[Hg] 120 mm[Hg] [facility] (Am evon pressure Kristy Physician) Diastolic blood 80 mm[Hg] 80 mm[Hg] [facility] (A mmir pressure Kristy Physician) Inhaled oxygen 98 % 98 % [facility] (Am evon concentration Kristy Physician) Heart rate 81 /min 81 /min [facility] (Ammir Kristy Physician) Body weight 136 lb 136 lb [facility] (Ammir Kristy Physician) Systolic blood 120 mm[Hg] 120 mm[Hg] [facility] (Am evon pressure Kristy Physician) Diastolic blood 80 mm[Hg] 80 mm[Hg] [facility] (A mmir pressure Kristy Physician) Inhaled oxygen 96 % 96 % [facility] (Am evon concentration Kristy Physician) Body temperature 98.8 F 98.8 F [facility] ( Ammir Kristy Physician) Heart rate 97 /min 97 /min [facility] (Ammir Kristy Physician) Patient Treatment Plan of Care Planned Activity Planned Date Details Description Data Source (s) albuterol sulfate 90 mcg HFA [facility] Aerosol Inhaler, Ordered By: MARCELLA Reynoldsirections: 2 puff by inhalation every four hours PRN shortness of breath 120 ACTUAT Budesonide 0.08 S [facility] MG/ACTUAT / formoterol Cente r fumarate 0.0045 MG/ACTUAT Metered Dose Inhaler [Symbicort] multivitamin with foLIC Acid [facility] (Thera) 400 mcg Tablet, Cent er Ordered By: MARCELLA Clarkeirections: 1 tablet oral daily Thiamine 100 MG Oral Tablet [facility] 24 HR Nicotine 0.292 MG/HR S [facility] Transdermal Patch Taiban Mirtazapine 15 MG Oral [facility] quetiapine 100 MG Oral [facility]
[2020-08-10] MEDS ORDERED: SODIUM CHLORIDE 250 ML IV ONE (10:00)
[2020-08-10] MEDS ORDERED: DEXAMETHASONE SODIUM PHOSPHATE 8 MG in SODIUM CHLORIDE 50 ML IVPB ONE (10:00)
[2020-08-10 10:01] LABS: BASO % 1.5 % (0-2.0); EOS % 5.9 % (0-4.5); HEMATOCRIT 39.5 % (35.4-49); HEMOGLOBIN 13.3 GM/dL (11.7-16.9); LYMPH % 20.6 % (8-40); MCH 32.8 pg (25.7-33.7); MCHC 33.7 g/dl (32.0-35.9); MEAN CELL VOLUME 97.3 fl (80-96); MEAN PLT VOLUME 7.4 fl (7.5-11.1); MONO % 10.7 % (3.8-10.2); NEUT % 61.3 % (42.8-82.8); PLATELET COUNT 291 K/MM3 (134-434); RBC 4.06 M/mm3 (4.00-5.60); WHITE BLOOD COUNT 7.3 K/mm3 (4.0-10.0)
[2020-08-10] MEDS ORDERED: PEMBROLIZUMAB 200 MG in SODIUM CHLORIDE 100 ML IV ONE (10:30)
[2020-08-10 10:35] LABS: ALBUMIN 3.6 g/dl (3.4-5.0); BILIRUBIN,DIRECT 0.1 mg/dL (0.0-0.2); BILIRUBIN,TOTAL 0.4 mg/dL (0.2-1); BLOOD UREA NITROGEN 13.2 mg/dL (7-18); CALCIUM 9.6 mg/dL (8.5-10.1); CREATININE 0.9 mg/dL (0.55-1.3); MAGNESIUM 2.2 mg/dL (1.8-2.4); POTASSIUM 3.8 mmol/L (3.5-5.1)
[2020-08-10 15:18] VITALS: TEMP 97.5
[2020-08-10 15:20] VITALS: BP 118/63; PULSE 80
== END 2020-08-10 12:10 | disposition home or self-care (01) ==
LOC: JONCCHEMO 06:17
PROVIDERS: ATTEND Internal Medicine Hematology & Oncology
DX: Z51.11 Encounter for antineoplastic chemotherapy (principal); C34.92 Malignant neoplasm of unspecified part of left bronchus or lung
CPT/HCPCS: 36415; 71046-TC-FY; 80048; 80076; 82150; 83690; 83735; 84439; 84443; 85025; 96361; 96375; 96413; J9271

== ENCOUNTER 2020-09-21 05:58 | Day surgery (SDC) | payer OTHER ==
[2020-09-21 10:43] LABS: BASO % 1.3 % (0-2.0); EOS % 4.8 % (0-4.5); HEMATOCRIT 35.8 % (35.4-49); HEMOGLOBIN 11.7 GM/dL (11.7-16.9); LYMPH % 23.8 % (8-40); MCH 31.9 pg (25.7-33.7); MCHC 32.7 g/dl (32.0-35.9); MEAN CELL VOLUME 97.7 fl (80-96); MEAN PLT VOLUME 7.5 fl (7.5-11.1); MONO % 10.2 % (3.8-10.2); NEUT % 59.9 % (42.8-82.8); PLATELET COUNT 271 K/MM3 (134-434); RBC 3.66 M/mm3 (4.00-5.60); RDW 13.5 % (11.9-15.9); WHITE BLOOD COUNT 7.7 K/mm3 (4.0-10.0)
[2020-09-21 10:55] LABS: POTASSIUM 3.5 mmol/L (3.5-5.1)
[2020-09-21 10:59] LABS: BLOOD UREA NITROGEN 14.1 mg/dL (7-18); CALCIUM 8.1 mg/dL (8.5-10.1)
[2020-09-21 11:00] LABS: MAGNESIUM 1.8 mg/dL (1.8-2.4)
[2020-09-21] MEDS ORDERED: DEXAMETHASONE SODIUM PHOSPHATE 6 MG in SODIUM CHLORIDE 50 ML IVPB ONE (11:00)
[2020-09-21 11:02] LABS: BILIRUBIN,DIRECT 0.1 mg/dL (0.0-0.2); CREATININE 0.8 mg/dL (0.55-1.3)
[2020-09-21 11:04] LABS: BILIRUBIN,TOTAL 0.4 mg/dL (0.2-1); TOT PROT 6.5 g/dl (6.4-8.2)
[2020-09-21] MEDS ORDERED: SODIUM CHLORIDE 250 ML IV ONE (11:30)
[2020-09-21] MEDS ORDERED: PEMBROLIZUMAB 200 MG in SODIUM CHLORIDE 100 ML IV ONE (12:00)
[2020-09-21 14:41] VITALS: BP 117/69; PULSE 87; TEMP 97.5
== END 2020-09-21 13:20 | disposition home or self-care (01) ==
LOC: JONCCHEMO 05:58
PROVIDERS: ATTEND Internal Medicine Hematology & Oncology
DX: Z51.11 Encounter for antineoplastic chemotherapy (principal); C34.92 Malignant neoplasm of unspecified part of left bronchus or lung
CPT/HCPCS: 36415; 80048; 80076; 82150; 82378; 83690; 83735; 84439; 84443; 85025; 96361; 96367; 96413; J9271

== ENCOUNTER 2020-11-16 07:40 | Day surgery (SDC) | payer OTHER ==
[2020-11-16] MEDS ORDERED: SODIUM CHLORIDE 250 ML IV ONE (09:00)
[2020-11-16] MEDS ORDERED: DEXAMETHASONE SODIUM PHOSPHATE 6 MG in SODIUM CHLORIDE 50 ML IVPB ONE (09:30)
[2020-11-16] MEDS ORDERED: PEMBROLIZUMAB 200 MG in SODIUM CHLORIDE 50 ML IV ONE (10:00)
[2020-11-16 10:47] LABS: BASO % 1.8 % (0-2.0); EOS % 6.2 % (0-4.5); HEMATOCRIT 38.7 % (35.4-49); HEMOGLOBIN 13.1 GM/dL (11.7-16.9); LYMPH % 22.3 % (8-40); MCH 32.8 pg (25.7-33.7); MCHC 33.7 g/dl (32.0-35.9); MEAN CELL VOLUME 97.1 fl (80-96); MEAN PLT VOLUME 7.6 fl (7.5-11.1); MONO % 10.9 % (3.8-10.2); NEUT % 58.8 % (42.8-82.8); PLATELET COUNT 302 K/MM3 (134-434); RBC 3.99 M/mm3 (4.00-5.60); RDW 12.2 % (11.9-15.9)
[2020-11-16 11:07] LABS: CALCIUM 9.7 mg/dL (8.5-10.1)
[2020-11-16 11:08] LABS: BLOOD UREA NITROGEN 13.2 mg/dL (7-18)
[2020-11-16 11:11] LABS: CREATININE 1.1 mg/dL (0.55-1.3)
[2020-11-16 11:12] LABS: ALBUMIN 3.6 g/dl (3.4-5.0)
[2020-11-16 11:15] LABS: BILIRUBIN,DIRECT 0.2 mg/dL (0.0-0.2)
[2020-11-16 11:17] LABS: BILIRUBIN,TOTAL 0.6 mg/dL (0.2-1)
[2020-11-16 14:12] VITALS: TEMP 97.5
[2020-11-16 14:18] VITALS: BP 96/52; PULSE 73
== END 2020-11-16 14:00 | disposition home or self-care (01) ==
LOC: JONCCHEMO 07:40
PROVIDERS: ATTEND Internal Medicine Hematology & Oncology
DX: Z51.11 Encounter for antineoplastic chemotherapy (principal); C34.92 Malignant neoplasm of unspecified part of left bronchus or lung
CPT/HCPCS: 36415; 80048; 80076; 82150; 83690; 83735; 84439; 84443; 85025; 96361; 96375; 96413; J9271

== ENCOUNTER 2020-12-07 06:44 | Day surgery (SDC) | payer OTHER ==
[2020-12-07] MEDS ORDERED: SODIUM CHLORIDE 250 ML IV ONE (09:00)
[2020-12-07] MEDS ORDERED: DEXAMETHASONE SODIUM PHOSPHATE 6 MG in SODIUM CHLORIDE 50 ML IVPB ONE (10:00)
[2020-12-07] MEDS ORDERED: PEMBROLIZUMAB 200 MG in SODIUM CHLORIDE 100 ML IV ONE (10:30)
[2020-12-07 10:44] LABS: BASO % 0.7 % (0-2.0); EOS % 3.3 % (0-4.5); HEMATOCRIT 36.3 % (35.4-49); HEMOGLOBIN 12.1 GM/dL (11.7-16.9); MCH 32.9 pg (25.7-33.7); MCHC 33.4 g/dl (32.0-35.9); MEAN CELL VOLUME 98.3 fl (80-96); MEAN PLT VOLUME 8.3 fl (7.5-11.1); MONO % 9.3 % (3.8-10.2); NEUT % 73.7 % (42.8-82.8); PLATELET COUNT 246 K/MM3 (134-434); RDW 12.5 % (11.9-15.9); WHITE BLOOD COUNT 11.1 K/mm3 (4.0-10.0)
[2020-12-07 11:07] LABS: POTASSIUM 3.7 mmol/L (3.5-5.1)
[2020-12-07 11:11] LABS: MAGNESIUM 1.9 mg/dL (1.8-2.4)
[2020-12-07 11:12] LABS: ALBUMIN 3.4 g/dl (3.4-5.0); BLOOD UREA NITROGEN 13.5 mg/dL (7-18); CALCIUM 9.3 mg/dL (8.5-10.1)
[2020-12-07 11:14] LABS: CREATININE 1.1 mg/dL (0.55-1.3)
[2020-12-07 11:15] LABS: BILIRUBIN,DIRECT 0.2 mg/dL (0.0-0.2)
[2020-12-07 11:16] LABS: TOT PROT 7.6 g/dl (6.4-8.2)
[2020-12-07 11:29] LABS: BILIRUBIN,TOTAL 0.9 mg/dL (0.2-1)
[2020-12-07 14:13] VITALS: TEMP 98.2
[2020-12-07 14:29] VITALS: BP 98/51; PULSE 94
== END 2020-12-07 13:55 | disposition home or self-care (01) ==
LOC: JONCCHEMO 06:44
PROVIDERS: ATTEND Internal Medicine Hematology & Oncology
DX: Z51.11 Encounter for antineoplastic chemotherapy (principal); C34.92 Malignant neoplasm of unspecified part of left bronchus or lung
CPT/HCPCS: 36415; 80048; 80076; 82150; 83690; 83735; 84443; 85025; 96361; 96367; 96413; J9271

== ENCOUNTER 2021-01-04 07:23 | Day surgery (SDC) | payer OTHER ==
[~2021-01-04 07:23] MED LIST: DEXAMETHASONE SODIUM PHOSPHATE 6 MG in SODIUM CHLORIDE 50 ML IVPB ONE; PEMBROLIZUMAB 200 MG in SODIUM CHLORIDE 100 ML IV ONE; SODIUM CHLORIDE 250 ML IV ONE
[2021-01-04] MEDS ORDERED: SODIUM CHLORIDE 250 ML IV ONE (09:00)
[2021-01-04] MEDS ORDERED: DEXAMETHASONE SODIUM PHOSPHATE 4 MG in SODIUM CHLORIDE 50 ML IVPB ONE (09:30)
[2021-01-04] MEDS ORDERED: PEMBROLIZUMAB 200 MG in SODIUM CHLORIDE 100 ML IV ONE (10:00)
[2021-01-04 11:36] LABS: BASO % 1.3 % (0-2.0); EOS % 4.2 % (0-4.5); HEMATOCRIT 38.6 % (35.4-49); HEMOGLOBIN 12.8 GM/dL (11.7-16.9); LYMPH % 23.5 % (8-40); MCHC 33.3 g/dl (32.0-35.9); MEAN CELL VOLUME 99.1 fl (80-96); MEAN PLT VOLUME 7.9 fl (7.5-11.1); MONO % 9.1 % (3.8-10.2); NEUT % 61.9 % (42.8-82.8); PLATELET COUNT 303 K/MM3 (134-434); RDW 13.6 % (11.9-15.9); WHITE BLOOD COUNT 8.3 K/mm3 (4.0-10.0)
[2021-01-04 11:46] LABS: POTASSIUM 4.4 mmol/L (3.5-5.1)
[2021-01-04 11:48] LABS: CALCIUM 9.5 mg/dL (8.5-10.1)
[2021-01-04 11:49] LABS: ALBUMIN 3.8 g/dl (3.4-5.0); BLOOD UREA NITROGEN 15.3 mg/dL (7-18); MAGNESIUM 2.2 mg/dL (1.8-2.4)
[2021-01-04 11:51] LABS: BILIRUBIN,DIRECT 0.1 mg/dL (0.0-0.2)
[2021-01-04 11:53] LABS: TOT PROT 8.2 g/dl (6.4-8.2)
[2021-01-04 12:04] LABS: BILIRUBIN,TOTAL 0.4 mg/dL (0.2-1)
[2021-01-04 15:50] VITALS: TEMP 98.2
[2021-01-04 16:04] VITALS: BP 107/52; PULSE 73
== END 2021-01-04 14:10 | disposition home or self-care (01) ==
LOC: JONCCHEMO 07:23
PROVIDERS: ATTEND Internal Medicine Hematology & Oncology
DX: Z51.11 Encounter for antineoplastic chemotherapy (principal); C34.92 Malignant neoplasm of unspecified part of left bronchus or lung
CPT/HCPCS: 36415; 80048; 80076; 82150; 82378; 82533; 83690; 83735; 84439; 84443; 85025; 96361; 96375; 96413; J9271

== ENCOUNTER 2021-01-25 07:32 | Day surgery (SDC) | payer OTHER ==
[2021-01-25] MEDS ORDERED: PEMBROLIZUMAB 200 MG in SODIUM CHLORIDE 100 ML IV ONE (10:00)
[2021-01-25] MEDS ORDERED: SODIUM CHLORIDE 250 ML IVPB ONE (10:00)
[2021-01-25 10:32] LABS: BASO % 1.1 % (0-2.0); EOS % 3.5 % (0-4.5); HEMATOCRIT 38.9 % (35.4-49); HEMOGLOBIN 12.8 GM/dL (11.7-16.9); MCH 32.6 pg (25.7-33.7); MEAN CELL VOLUME 98.8 fl (80-96); MEAN PLT VOLUME 7.4 fl (7.5-11.1); MONO % 8.9 % (3.8-10.2); NEUT % 70.5 % (42.8-82.8); PLATELET COUNT 286 K/MM3 (134-434); RBC 3.93 M/mm3 (4.00-5.60); WHITE BLOOD COUNT 10.3 K/mm3 (4.0-10.0)
[2021-01-25 10:53] LABS: POTASSIUM 3.9 mmol/L (3.5-5.1)
[2021-01-25 10:55] LABS: CALCIUM 9.9 mg/dL (8.5-10.1)
[2021-01-25 10:56] LABS: ALBUMIN 3.8 g/dl (3.4-5.0); BLOOD UREA NITROGEN 16.1 mg/dL (7-18)
[2021-01-25 10:59] LABS: BILIRUBIN,DIRECT 0.2 mg/dL (0.0-0.2)
[2021-01-25 11:00] LABS: BILIRUBIN,TOTAL 0.4 mg/dL (0.2-1); MAGNESIUM 2.2 mg/dL (1.8-2.4); TOT PROT 8.2 g/dl (6.4-8.2)
[2021-01-25 13:05] VITALS: TEMP 98.8
[2021-01-25 13:06] VITALS: BP 99/54; PULSE 98
== END 2021-01-25 12:15 | disposition home or self-care (01) ==
LOC: JONCCHEMO 07:32
PROVIDERS: ATTEND Internal Medicine Hematology & Oncology
DX: Z51.11 Encounter for antineoplastic chemotherapy (principal); C34.92 Malignant neoplasm of unspecified part of left bronchus or lung
CPT/HCPCS: 36415; 80048; 80076; 82150; 82533; 83690; 83735; 84439; 84443; 85025; 96361; 96413; J9271

== ENCOUNTER 2021-03-20 06:57 | Day surgery (SDC) | payer OTHER ==
[2021-03-20] MEDS ORDERED: SODIUM CHLORIDE 250 ML IV ONE (10:00)
[2021-03-20] MEDS ORDERED: PEMBROLIZUMAB 200 MG in SODIUM CHLORIDE 100 ML IV ONE (10:30)
[2021-03-20 12:54] LABS: BASO % 1.5 % (0-2.0); EOS % 7.2 % (0-4.5); HEMOGLOBIN 13.5 GM/dL (11.7-16.9); LYMPH % 25.1 % (8-40); MCH 33.5 pg (25.7-33.7); MCHC 33.9 g/dl (32.0-35.9); MEAN CELL VOLUME 99.1 fl (80-96); MEAN PLT VOLUME 7.8 fl (7.5-11.1); MONO % 9.7 % (3.8-10.2); NEUT % 56.5 % (42.8-82.8); PLATELET COUNT 251 K/MM3 (134-434); RBC 4.04 M/mm3 (4.00-5.60); WHITE BLOOD COUNT 8.5 K/mm3 (4.0-10.0)
[2021-03-20 13:15] LABS: BLOOD UREA NITROGEN 21.3 mg/dL (7-18); MAGNESIUM 1.8 mg/dL (1.8-2.4)
[2021-03-20 13:17] LABS: BILIRUBIN,DIRECT 0.2 mg/dL (0.0-0.2)
[2021-03-20 13:18] LABS: CREATININE 1.3 mg/dL (0.55-1.3)
[2021-03-20 13:19] LABS: BILIRUBIN,TOTAL 0.4 mg/dL (0.2-1); TOT PROT 8.2 g/dl (6.4-8.2)
[2021-03-20 16:46] VITALS: TEMP 98.1
[2021-03-20 16:47] VITALS: BP 100/52; PULSE 78
== END 2021-03-20 15:15 | disposition home or self-care (01) ==
LOC: JONCCHEMO 06:57
PROVIDERS: ATTEND Internal Medicine Hematology & Oncology
DX: Z51.11 Encounter for antineoplastic chemotherapy (principal); C34.92 Malignant neoplasm of unspecified part of left bronchus or lung; C79.9 Secondary malignant neoplasm of unspecified site
CPT/HCPCS: 36415; 80048; 80076; 82150; 82533; 83690; 83735; 84439; 84443; 85025; 87517; 96361; 96413; J9271

== ENCOUNTER 2021-04-17 07:12 | Day surgery (SDC) | payer OTHER ==
[~2021-04-17 07:12] MED LIST changes: -DEXAMETHASONE SODIUM PHOSPHATE 6 MG in SODIUM CHLORIDE 50 ML IVPB ONE
[2021-04-17] MEDS ORDERED: SODIUM CHLORIDE 250 ML IV ONE (09:00)
[2021-04-17] MEDS ORDERED: PEMBROLIZUMAB 200 MG in SODIUM CHLORIDE 100 ML IV ONE (10:00)
[2021-04-17 11:19] LABS: BASO % 1.3 % (0-2.0); EOS % 5.1 % (0-4.5); HEMATOCRIT 38.7 % (35.4-49); HEMOGLOBIN 13.3 GM/dL (11.7-16.9); MCH 33.6 pg (25.7-33.7); MCHC 34.3 g/dl (32.0-35.9); MEAN PLT VOLUME 7.8 fl (7.5-11.1); MONO % 11.1 % (3.8-10.2); NEUT % 62.5 % (42.8-82.8); PLATELET COUNT 221 K/MM3 (134-434); RBC 3.95 M/mm3 (4.00-5.60); RDW 12.3 % (11.9-15.9); WHITE BLOOD COUNT 7.5 K/mm3 (4.0-10.0)
[2021-04-17 11:36] LABS: CALCIUM 9.7 mg/dL (8.5-10.1)
[2021-04-17 11:38] LABS: ALBUMIN 3.8 g/dl (3.4-5.0); BLOOD UREA NITROGEN 16.4 mg/dL (7-18); MAGNESIUM 2.2 mg/dL (1.8-2.4)
[2021-04-17 11:39] LABS: BILIRUBIN,DIRECT 0.2 mg/dL (0.0-0.2); CREATININE 1.1 mg/dL (0.55-1.3)
[2021-04-17 11:41] LABS: BILIRUBIN,TOTAL 0.7 mg/dL (0.2-1)
[2021-04-17 15:56] VITALS: TEMP 98.4
[2021-04-17 15:58] VITALS: BP 105/56; PULSE 94
== END 2021-04-17 14:20 | disposition home or self-care (01) ==
LOC: JONCCHEMO 07:12
PROVIDERS: ATTEND Internal Medicine Hematology & Oncology
DX: Z51.11 Encounter for antineoplastic chemotherapy (principal); C34.92 Malignant neoplasm of unspecified part of left bronchus or lung; C79.9 Secondary malignant neoplasm of unspecified site
CPT/HCPCS: 36415; 80048; 80076; 82150; 82378; 82533; 83690; 83735; 84439; 84443; 85025; 87517; 96361; 96413; J9271

== ENCOUNTER 2021-05-08 06:36 | Day surgery (SDC) | payer OTHER ==
[2021-05-08] MEDS ORDERED: SODIUM CHLORIDE 250 ML IV ONE (09:00)
[2021-05-08] MEDS ORDERED: PEMBROLIZUMAB 200 MG in SODIUM CHLORIDE 100 ML IV ONE (10:00)
[2021-05-08 12:11] LABS: BASO % 1.2 % (0-2.0); EOS % 2.7 % (0-4.5); HEMATOCRIT 39.6 % (35.4-49); HEMOGLOBIN 13.4 GM/dL (11.7-16.9); MCH 32.9 pg (25.7-33.7); MCHC 33.9 g/dl (32.0-35.9); MEAN CELL VOLUME 97.1 fl (80-96); MEAN PLT VOLUME 7.9 fl (7.5-11.1); MONO % 10.4 % (3.8-10.2); NEUT % 68.7 % (42.8-82.8); PLATELET COUNT 222 10^3/uL (134-434); RBC 4.08 M/mm3 (4.00-5.60); RDW 12.1 % (11.9-15.9); WHITE BLOOD COUNT 7.8 K/mm3 (4.0-10.0)
[2021-05-08 12:41] LABS: BLOOD UREA NITROGEN 16.5 mg/dL (7-18)
[2021-05-08 12:42] LABS: ALBUMIN 4.1 g/dl (3.4-5.0)
[2021-05-08 12:44] LABS: BILIRUBIN,DIRECT 0.2 mg/dL (0.0-0.2); CREATININE 0.9 mg/dL (0.55-1.3)
[2021-05-08 12:46] LABS: BILIRUBIN,TOTAL 0.6 mg/dL (0.2-1); TOT PROT 8.2 g/dl (6.4-8.2)
[2021-05-08 17:48] VITALS: TEMP 98.1
[2021-05-08 17:58] VITALS: BP 108/53; PULSE 79
== END 2021-05-08 15:00 | disposition home or self-care (01) ==
LOC: JONCCHEMO 06:36
PROVIDERS: ATTEND Internal Medicine Hematology & Oncology
DX: Z51.11 Encounter for antineoplastic chemotherapy (principal); C34.92 Malignant neoplasm of unspecified part of left bronchus or lung; C79.9 Secondary malignant neoplasm of unspecified site
CPT/HCPCS: 36415; 80048; 80076; 82150; 82533; 83690; 83735; 84439; 84443; 85025; 96361; 96413; J9271

== ENCOUNTER 2021-05-29 07:19 | Day surgery (SDC) | payer OTHER ==
[2021-05-29] MEDS ORDERED: SODIUM CHLORIDE 250 ML IV ONE (10:00)
[2021-05-29] MEDS ORDERED: PEMBROLIZUMAB 200 MG in SODIUM CHLORIDE 100 ML IV ONE (10:30)
[2021-05-29 11:23] LABS: BASO % 1.1 % (0-2.0); EOS % 4.1 % (0-4.5); HEMATOCRIT 40.6 % (35.4-49); HEMOGLOBIN 13.8 GM/dL (11.7-16.9); LYMPH % 19.8 % (8-40); MCH 33.1 pg (25.7-33.7); MCHC 34.1 g/dl (32.0-35.9); MEAN PLT VOLUME 7.6 fl (7.5-11.1); MONO % 9.8 % (3.8-10.2); NEUT % 65.2 % (42.8-82.8); PLATELET COUNT 235 10^3/uL (134-434); RBC 4.18 M/mm3 (4.00-5.60); RDW 12.1 % (11.9-15.9); WHITE BLOOD COUNT 8.7 K/mm3 (4.0-10.0)
[2021-05-29 11:43] LABS: BLOOD UREA NITROGEN 12.4 mg/dL (7-18); CALCIUM 9.3 mg/dL (8.5-10.1); MAGNESIUM 2.2 mg/dL (1.8-2.4)
[2021-05-29 11:46] LABS: BILIRUBIN,DIRECT 0.2 mg/dL (0.0-0.2); CREATININE 1.4 mg/dL (0.55-1.3)
[2021-05-29 11:47] LABS: BILIRUBIN,TOTAL 0.7 mg/dL (0.2-1); TOT PROT 8.5 g/dl (6.4-8.2)
[2021-05-29] MEDS ORDERED: SODIUM CHLORIDE 0.9% 500 ML INFUS.BAG IV ONE (11:51)
[2021-05-29 15:30] VITALS: BP 98/48; PULSE 72; TEMP 98.4
== END 2021-05-29 13:50 | disposition home or self-care (01) ==
LOC: JONCCHEMO 07:19
PROVIDERS: ATTEND Internal Medicine Hematology & Oncology
DX: Z51.11 Encounter for antineoplastic chemotherapy (principal); C34.92 Malignant neoplasm of unspecified part of left bronchus or lung; C79.9 Secondary malignant neoplasm of unspecified site
CPT/HCPCS: 36415; 80048; 80076; 82150; 82533; 83690; 83735; 84439; 84443; 85025; 87517; 96361; 96367; 96413; J9271

== ENCOUNTER 2021-06-19 06:47 | Day surgery (SDC) | payer OTHER ==
[2021-06-19] MEDS ORDERED: SODIUM CHLORIDE 250 ML IV ONE (09:00)
[2021-06-19] MEDS ORDERED: PEMBROLIZUMAB 200 MG in SODIUM CHLORIDE 100 ML IV ONE (10:00)
[2021-06-19 11:41] LABS: BASO % 1.1 % (0-2.0); EOS % 4.7 % (0-4.5); HEMATOCRIT 38.8 % (35.4-49); HEMOGLOBIN 13.5 GM/dL (11.7-16.9); LYMPH % 19.4 % (8-40); MCH 34.1 pg (25.7-33.7); MCHC 34.7 g/dl (32.0-35.9); MEAN CELL VOLUME 98.2 fl (80-96); MEAN PLT VOLUME 7.8 fl (7.5-11.1); MONO % 9.3 % (3.8-10.2); NEUT % 65.5 % (42.8-82.8); PLATELET COUNT 239 10^3/uL (134-434); RBC 3.95 M/mm3 (4.00-5.60); RDW 12.4 % (11.9-15.9); WHITE BLOOD COUNT 7.9 K/mm3 (4.0-10.0)
[2021-06-19 12:01] LABS: CALCIUM 8.9 mg/dL (8.5-10.1)
[2021-06-19 12:02] LABS: ALBUMIN 3.8 g/dl (3.4-5.0); BLOOD UREA NITROGEN 14.7 mg/dL (7-18)
[2021-06-19 12:04] LABS: BILIRUBIN,DIRECT 0.1 mg/dL (0.0-0.2)
[2021-06-19 12:05] LABS: CREATININE 1.3 mg/dL (0.55-1.3)
[2021-06-19 12:06] LABS: BILIRUBIN,TOTAL 0.5 mg/dL (0.2-1); TOT PROT 8.2 g/dl (6.4-8.2)
[2021-06-19 16:40] VITALS: TEMP 97.8
[2021-06-19 16:41] VITALS: BP 95/50; PULSE 76
== END 2021-06-19 13:45 | disposition home or self-care (01) ==
LOC: JONCCHEMO 06:47
PROVIDERS: ATTEND Nurse Practitioner Family
DX: Z51.11 Encounter for antineoplastic chemotherapy (principal); C34.92 Malignant neoplasm of unspecified part of left bronchus or lung; C79.9 Secondary malignant neoplasm of unspecified site
CPT/HCPCS: 36415; 80048; 80076; 82150; 82533; 83690; 83735; 84439; 84443; 85025; 93970-TC; 96361; 96413; J9271

== ENCOUNTER 2021-07-10 06:54 | Day surgery (SDC) | payer OTHER ==
[2021-07-10] MEDS ORDERED: SODIUM CHLORIDE 250 ML IV ONE (10:00)
[2021-07-10] MEDS ORDERED: PEMBROLIZUMAB 200 MG in SODIUM CHLORIDE 100 ML IV ONE (10:30)
[2021-07-10 11:06] LABS: BASO % 1.9 % (0-2.0); EOS % 6.9 % (0-4.5); HEMATOCRIT 37.4 % (35.4-49); HEMOGLOBIN 12.8 GM/dL (11.7-16.9); LYMPH % 22.4 % (8-40); MCH 33.2 pg (25.7-33.7); MCHC 34.3 g/dl (32.0-35.9); MEAN CELL VOLUME 96.9 fl (80-96); MEAN PLT VOLUME 7.4 fl (7.5-11.1); MONO % 10.1 % (3.8-10.2); NEUT % 58.7 % (42.8-82.8); PLATELET COUNT 233 10^3/uL (134-434); RBC 3.86 M/mm3 (4.00-5.60); RDW 12.4 % (11.9-15.9); WHITE BLOOD COUNT 8.3 K/mm3 (4.0-10.0)
[2021-07-10 11:31] LABS: ALBUMIN 3.6 g/dl (3.4-5.0); BLOOD UREA NITROGEN 16.3 mg/dL (7-18); CALCIUM 8.9 mg/dL (8.5-10.1)
[2021-07-10 11:34] LABS: BILIRUBIN,DIRECT 0.1 mg/dL (0.0-0.2)
[2021-07-10 11:36] LABS: BILIRUBIN,TOTAL 0.3 mg/dL (0.2-1); TOT PROT 7.8 g/dl (6.4-8.2)
[2021-07-10 15:42] VITALS: TEMP 98.4
[2021-07-10 15:46] VITALS: BP 114/52; PULSE 74
== END 2021-07-10 13:20 | disposition home or self-care (01) ==
LOC: JONCCHEMO 06:54
PROVIDERS: ATTEND Internal Medicine Hematology & Oncology
PROC: 3E03305 Introduction of Other Antineoplastic into Peripheral Vein, Percutaneous Approach (ICD-10-PCS; principal; 2021-07-10)
PROC: 3E0337Z Introduction of Electrolytic and Water Balance Substance into Peripheral Vein, Percutaneous Approach (ICD-10-PCS; 2021-07-10)
DX: Z51.11 Encounter for antineoplastic chemotherapy (principal); C34.92 Malignant neoplasm of unspecified part of left bronchus or lung
CPT/HCPCS: 36415; 80048; 80076; 82150; 82533; 83690; 83735; 84439; 84443; 85025; 87517; 96361; 96413; J9271

== ENCOUNTER 2021-07-31 07:44 | Day surgery (SDC) | payer OTHER ==
[2021-07-31] MEDS ORDERED: SODIUM CHLORIDE 250 ML IV ONE (10:00)
[2021-07-31] MEDS ORDERED: PEMBROLIZUMAB 200 MG in SODIUM CHLORIDE 100 ML IV ONE (10:30)
[2021-07-31 11:51] LABS: BASO % 1.7 % (0-2.0); EOS % 4.5 % (0-4.5); HEMATOCRIT 39.4 % (35.4-49); HEMOGLOBIN 13.5 GM/dL (11.7-16.9); LYMPH % 26.7 % (8-40); MCH 33.9 pg (25.7-33.7); MCHC 34.3 g/dl (32.0-35.9); MEAN CELL VOLUME 98.7 fl (80-96); MEAN PLT VOLUME 7.6 fl (7.5-11.1); MONO % 9.7 % (3.8-10.2); NEUT % 57.4 % (42.8-82.8); PLATELET COUNT 224 10^3/uL (134-434); RBC 3.99 M/mm3 (4.00-5.60); RDW 12.6 % (11.9-15.9); WHITE BLOOD COUNT 6.8 K/mm3 (4.0-10.0)
[2021-07-31 12:19] LABS: ALBUMIN 3.8 g/dl (3.4-5.0)
[2021-07-31 12:20] LABS: BLOOD UREA NITROGEN 15.7 mg/dL (7-18); MAGNESIUM 2.1 mg/dL (1.8-2.4)
[2021-07-31 12:22] LABS: BILIRUBIN,DIRECT 0.2 mg/dL (0.0-0.2); CREATININE 1.2 mg/dL (0.55-1.3)
[2021-07-31 12:24] LABS: BILIRUBIN,TOTAL 0.4 mg/dL (0.2-1)
[2021-07-31 15:21] VITALS: TEMP 98
[2021-07-31 15:22] VITALS: BP 106/56; PULSE 66
== END 2021-07-31 14:25 | disposition home or self-care (01) ==
LOC: JONCCHEMO 07:44
PROVIDERS: ATTEND Internal Medicine Hematology & Oncology
DX: Z12.11 Encounter for screening for malignant neoplasm of colon (principal); C34.92 Malignant neoplasm of unspecified part of left bronchus or lung; C79.9 Secondary malignant neoplasm of unspecified site
CPT/HCPCS: 36415; 80048; 80076; 82150; 82533; 83690; 83735; 84439; 84443; 85025; 96361; 96413; J9271

== ENCOUNTER 2021-08-21 06:43 | Day surgery (SDC) | payer OTHER ==
[2021-08-21] MEDS ORDERED: SODIUM CHLORIDE 250 ML IV ONE (09:00)
[2021-08-21] MEDS ORDERED: PEMBROLIZUMAB 200 MG in SODIUM CHLORIDE 100 ML IV ONE (10:00)
[2021-08-21 12:52] LABS: BASO % 1.1 % (0-2.0); EOS % 4.1 % (0-4.5); HEMOGLOBIN 14.1 GM/dL (11.7-16.9); LYMPH % 18.4 % (8-40); MCH 34.1 pg (25.7-33.7); MCHC 34.4 g/dl (32.0-35.9); MEAN CELL VOLUME 99.2 fl (80-96); MEAN PLT VOLUME 7.8 fl (7.5-11.1); MONO % 10.3 % (3.8-10.2); NEUT % 66.1 % (42.8-82.8); PLATELET COUNT 272 10^3/uL (134-434); RBC 4.13 M/mm3 (4.00-5.60); RDW 12.9 % (11.9-15.9); WHITE BLOOD COUNT 8.8 K/mm3 (4.0-10.0)
[2021-08-21 13:09] LABS: CALCIUM 8.8 mg/dL (8.5-10.1)
[2021-08-21 13:10] LABS: ALBUMIN 3.7 g/dl (3.4-5.0); BLOOD UREA NITROGEN 10.5 mg/dL (7-18)
[2021-08-21 13:12] LABS: BILIRUBIN,DIRECT 0.2 mg/dL (0.0-0.2); CREATININE 1.2 mg/dL (0.55-1.3)
[2021-08-21 13:13] LABS: BILIRUBIN,TOTAL 0.5 mg/dL (0.2-1)
[2021-08-21 13:14] LABS: TOT PROT 8.5 g/dl (6.4-8.2)
[2021-08-21 16:20] VITALS: BP 97/48; PULSE 73; TEMP 98.3
== END 2021-08-21 14:40 | disposition home or self-care (01) ==
LOC: JONCCHEMO 06:43
PROVIDERS: ATTEND Internal Medicine Hematology & Oncology
DX: Z51.11 Encounter for antineoplastic chemotherapy (principal); C34.92 Malignant neoplasm of unspecified part of left bronchus or lung; C79.9 Secondary malignant neoplasm of unspecified site
CPT/HCPCS: 36415; 80048; 80076; 82150; 82533; 83690; 83735; 84153; 84439; 84443; 85025; 96361; 96413; J9271

== ENCOUNTER 2021-09-11 07:37 | Day surgery (SDC) | payer OTHER ==
[2021-09-11] MEDS ORDERED: SODIUM CHLORIDE 250 ML IV ONE (09:00)
[2021-09-11] MEDS ORDERED: PEMBROLIZUMAB 200 MG in SODIUM CHLORIDE 100 ML IV ONE (10:00)
[2021-09-11 11:53] LABS: EOS % 3.5 % (0-4.5); HEMATOCRIT 39.9 % (35.4-49); HEMOGLOBIN 13.3 GM/dL (11.7-16.9); LYMPH % 17.3 % (8-40); MCHC 33.4 g/dl (32.0-35.9); MEAN CELL VOLUME 98.9 fl (80-96); MEAN PLT VOLUME 7.2 fl (7.5-11.1); MONO % 9.3 % (3.8-10.2); NEUT % 68.9 % (42.8-82.8); PLATELET COUNT 209 10^3/uL (134-434); RBC 4.03 M/mm3 (4.00-5.60); RDW 12.6 % (11.9-15.9); WHITE BLOOD COUNT 7.9 K/mm3 (4.0-10.0)
[2021-09-11 12:20] LABS: CALCIUM 9.5 mg/dL (8.5-10.1)
[2021-09-11 12:21] LABS: ALBUMIN 3.5 g/dl (3.4-5.0); BLOOD UREA NITROGEN 13.8 mg/dL (7-18)
[2021-09-11 12:23] LABS: BILIRUBIN,DIRECT 0.1 mg/dL (0.0-0.2); CREATININE 1.1 mg/dL (0.55-1.3)
[2021-09-11 12:24] LABS: BILIRUBIN,TOTAL 0.5 mg/dL (0.2-1)
[2021-09-11 12:25] LABS: TOT PROT 7.9 g/dl (6.4-8.2)
[2021-09-11 18:19] VITALS: TEMP 98.1
[2021-09-11 18:20] VITALS: BP 93/48; PULSE 79
== END 2021-09-11 15:20 | disposition home or self-care (01) ==
LOC: JONCCHEMO 07:37
PROVIDERS: ATTEND Internal Medicine Hematology & Oncology
DX: Z51.11 Encounter for antineoplastic chemotherapy (principal); C34.92 Malignant neoplasm of unspecified part of left bronchus or lung
CPT/HCPCS: 36415; 80048; 80076; 82150; 82533; 83690; 83735; 84439; 84443; 85025; 96361; 96413; J9271

== ENCOUNTER 2021-09-13 12:50 | Inpatient (IN) | payer OTHER ==
[2021-09-13 15:04] LABS: HEMATOCRIT 37.6 % (35.4-49); HEMOGLOBIN 13.3 GM/dL (11.7-16.9); MCH 33.8 pg (25.7-33.7); MCHC 35.4 g/dl (32.0-35.9); MEAN CELL VOLUME 95.7 fl (80-96); PLATELET COUNT 224 10^3/uL (134-434); RBC 3.93 M/mm3 (4.00-5.60); RDW 12.6 % (11.9-15.9); WHITE BLOOD COUNT 8.3 K/mm3 (4.0-10.0)
[2021-09-13 15:05] LABS: BASO % 1.8 % (0-2.0); EOS % 4.3 % (0-4.5); LYMPH % 16.9 % (8-40); MEAN PLT VOLUME 7.4 fl (7.5-11.1); MONO % 9.7 % (3.8-10.2); NEUT % 67.3 % (42.8-82.8)
[2021-09-13 15:13] LABS: INR 1.18 (0.83-1.09); PROTHROMBIN TIME (PATIENT) 13.2 SEC (9.7-13.0)
[2021-09-13 15:15] LABS: ACTIVATED PTT 30.7 SECONDS (25.2-36.5)
[2021-09-13 15:23] LABS: CALCIUM 9.2 mg/dL (8.5-10.1)
[2021-09-13 15:24] LABS: ALBUMIN 3.4 g/dl (3.4-5.0); BLOOD UREA NITROGEN 10.9 mg/dL (7-18)
[2021-09-13 15:29] LABS: BILIRUBIN,TOTAL 0.4 mg/dL (0.2-1); TOT PROT 7.9 g/dl (6.4-8.2)
[2021-09-13] MEDS ORDERED: VANCOMYCIN 1 GM in D5W (PRE-DOCKED) 1,000 MG/250 ML IVPB ONE (16:12)
[2021-09-13] MEDS ORDERED: PIPERACILLIN/TAZOB 3.375 GM 3.375 GM in DEXTROSE 5%-WATER - 50 ML IVPB ONE (16:12)
[2021-09-13] MEDS ORDERED: ACETAMINOPHEN 325 MG TABLET (FP) PO PRN (16:26)
[2021-09-13] MEDS ORDERED: PIPERACILLIN/TAZOB 3.375 GM 3.375 GM/50 ML BAG IVPB ONE (16:45)
[2021-09-13] MEDS ORDERED: VANCOMYCIN 1 GRAM (PRE-DOCKED) 1,000 MG/250 ML BAG IVPB ONE (16:45)
[2021-09-13] MEDS ORDERED: PIPERACILLIN/TAZOB 3.375 GM 3.375 GM in DEXTROSE 5%-WATER - 50 ML IVPB SCH (18:00)
[2021-09-13] MEDS: PIPERACILLIN/TAZOB 3.375 GM 3.375 GM in DEXTROSE 5%-WATER - 50 ML IVPB SCH (19:55)
[2021-09-13 20:55] VITALS: BMI 23.5
[2021-09-13] MEDS: HEPARIN NA (PORCINE) 5,000 UNITS/ML 1ML VIAL SQ SCH (21:05)
[2021-09-13] MEDS: ATORVASTATIN CA 80 MG TABLET (FP) PO SCH (21:05)
[2021-09-14] MEDS ORDERED: PIPERACILLIN/TAZOBACTAM 3.375 GM VIAL IVPB ONE ×3 (00:56→17:36)
[2021-09-14] MEDS ORDERED: DEXTROSE 5%-WATER - 50 ML IVPB ONE ×3 (00:56→17:36)
[2021-09-14] MEDS: PIPERACILLIN/TAZOB 3.375 GM 3.375 GM in DEXTROSE 5%-WATER - 50 ML IVPB SCH ×4 (01:18→18:20)
[2021-09-14 07:46] LABS: BASO % 2.2 % (0-2.0); EOS % 6.5 % (0-4.5); HEMATOCRIT 37.5 % (35.4-49); HEMOGLOBIN 13.1 GM/dL (11.7-16.9); LYMPH % 23.2 % (8-40); MCH 33.8 pg (25.7-33.7); MCHC 34.9 g/dl (32.0-35.9); MEAN CELL VOLUME 96.6 fl (80-96); MEAN PLT VOLUME 7.4 fl (7.5-11.1); MONO % 9.7 % (3.8-10.2); NEUT % 58.4 % (42.8-82.8); PLATELET COUNT 191 10^3/uL (134-434); RBC 3.88 M/mm3 (4.00-5.60); RDW 12.7 % (11.9-15.9); WHITE BLOOD COUNT 7.4 K/mm3 (4.0-10.0)
[2021-09-14 08:23] LABS: ALBUMIN 3.1 g/dl (3.4-5.0); BLOOD UREA NITROGEN 11.5 mg/dL (7-18)
[2021-09-14 08:25] LABS: MAGNESIUM 2.2 mg/dL (1.8-2.4)
[2021-09-14 08:26] LABS: CREATININE 1.1 mg/dL (0.55-1.3)
[2021-09-14 08:28] LABS: BILIRUBIN,TOTAL 0.6 mg/dL (0.2-1); TOT PROT 7.2 g/dl (6.4-8.2)
[2021-09-14] MEDS ORDERED: TICAGRELOR 60 MG TABLET PO SCH (10:00)
[2021-09-14] MEDS ORDERED: TICAGRELOR 90 MG TABLET PO SCH (11:00)
[2021-09-14] MEDS: PANTOPRAZOLE 20 MG TABLET PO SCH (11:04)
[2021-09-14] MEDS: NICOTINE 21 MG/24 HOURS TOPICAL PATCH TD SCH (11:04)
[2021-09-14] MEDS: ASPIRIN 81 MG CHEWABLE TABLETS PO SCH (11:04)
[2021-09-14] MEDS: MULTIVITAMINS (DAILY MVI) TABLET (FP) PO SCH (11:04)
[2021-09-14] MEDS: HEPARIN NA (PORCINE) 5,000 UNITS/ML 1ML VIAL SQ SCH ×2 (11:04→23:05)
[2021-09-14] MEDS ORDERED: PT OWN MED DRAWER 7, Y5N ONE ×2 (11:15→18:54)
[2021-09-14] MEDS ORDERED: ALBUTEROL SO4 0.083% IH SOL 2.5 MG/3 ML VIAL.NEB. NEB PRN (13:22)
[2021-09-14] MEDS ORDERED: TICAGRELOR 90 MG TABLET PO ONE (13:34)
[2021-09-14] MEDS: ATORVASTATIN CA 80 MG TABLET (FP) PO SCH (23:05)
[2021-09-14] MEDS: TICAGRELOR 90 MG TABLET PO SCH (23:05)
[2021-09-14] MEDS: CEFAZOLIN 2 GM in DEXTROSE 5%-WATER - 100 ML IVPB SCH (23:34)
[2021-09-15] MEDS: CEFAZOLIN 2 GM in DEXTROSE 5%-WATER - 100 ML IVPB SCH ×3 (04:00→18:53)
[2021-09-15 09:04] LABS: BASO % 0.9 % (0-2.0); EOS % 5.4 % (0-4.5); HEMATOCRIT 37.2 % (35.4-49); HEMOGLOBIN 12.8 GM/dL (11.7-16.9); LYMPH % 22.4 % (8-40); MCH 33.7 pg (25.7-33.7); MCHC 34.3 g/dl (32.0-35.9); MEAN CELL VOLUME 98.2 fl (80-96); MEAN PLT VOLUME 7.5 fl (7.5-11.1); MONO % 11.5 % (3.8-10.2); NEUT % 59.8 % (42.8-82.8); PLATELET COUNT 181 10^3/uL (134-434); RBC 3.79 M/mm3 (4.00-5.60); RDW 12.7 % (11.9-15.9); WHITE BLOOD COUNT 7.5 K/mm3 (4.0-10.0)
[2021-09-15 09:32] LABS: ALBUMIN 3.1 g/dl (3.4-5.0); BLOOD UREA NITROGEN 14.9 mg/dL (7-18); CALCIUM 8.7 mg/dL (8.5-10.1)
[2021-09-15 09:33] LABS: CREATININE 1.1 mg/dL (0.55-1.3)
[2021-09-15 09:34] LABS: BILIRUBIN,TOTAL 0.3 mg/dL (0.2-1); TOT PROT 7.1 g/dl (6.4-8.2)
[2021-09-15] MEDS: NICOTINE 21 MG/24 HOURS TOPICAL PATCH TD SCH (10:09)
[2021-09-15] MEDS: HEPARIN NA (PORCINE) 5,000 UNITS/ML 1ML VIAL SQ SCH ×2 (10:09→21:53)
[2021-09-15] MEDS: ASPIRIN 81 MG CHEWABLE TABLETS PO SCH (10:10)
[2021-09-15] MEDS: PANTOPRAZOLE 20 MG TABLET PO SCH (10:10)
[2021-09-15] MEDS: MULTIVITAMINS (DAILY MVI) TABLET (FP) PO SCH (10:10)
[2021-09-15] MEDS: TICAGRELOR 90 MG TABLET PO SCH ×2 (10:11→21:53)
[2021-09-15] MEDS: ATORVASTATIN CA 80 MG TABLET (FP) PO SCH (21:53)
[2021-09-16] MEDS: CEFAZOLIN 2 GM in DEXTROSE 5%-WATER - 100 ML IVPB SCH ×3 (01:01→18:12)
[2021-09-16 09:04] LABS: BASO % 1.1 % (0-2.0); EOS % 5.3 % (0-4.5); HEMATOCRIT 40.3 % (35.4-49); HEMOGLOBIN 13.8 GM/dL (11.7-16.9); LYMPH % 22.7 % (8-40); MCH 33.9 pg (25.7-33.7); MCHC 34.2 g/dl (32.0-35.9); MEAN CELL VOLUME 99.4 fl (80-96); MEAN PLT VOLUME 7.9 fl (7.5-11.1); MONO % 9.9 % (3.8-10.2); PLATELET COUNT 221 10^3/uL (134-434); RBC 4.05 M/mm3 (4.00-5.60); RDW 12.6 % (11.9-15.9); WHITE BLOOD COUNT 7.4 K/mm3 (4.0-10.0)
[2021-09-16 09:16] LABS: BLOOD UREA NITROGEN 14.6 mg/dL (7-18); CALCIUM 9.3 mg/dL (8.5-10.1)
[2021-09-16 09:17] LABS: ALBUMIN 3.4 g/dl (3.4-5.0)
[2021-09-16 09:21] LABS: BILIRUBIN,TOTAL 0.4 mg/dL (0.2-1); TOT PROT 7.7 g/dl (6.4-8.2)
[2021-09-16] MEDS: MULTIVITAMINS (DAILY MVI) TABLET (FP) PO SCH (09:26)
[2021-09-16] MEDS: HEPARIN NA (PORCINE) 5,000 UNITS/ML 1ML VIAL SQ SCH ×2 (09:26→22:14)
[2021-09-16] MEDS: ASPIRIN 81 MG CHEWABLE TABLETS PO SCH (09:26)
[2021-09-16] MEDS: NICOTINE 21 MG/24 HOURS TOPICAL PATCH TD SCH (09:26)
[2021-09-16] MEDS: PANTOPRAZOLE 20 MG TABLET PO SCH (09:26)
[2021-09-16] MEDS: TICAGRELOR 90 MG TABLET PO SCH ×2 (09:33→22:11)
[2021-09-16] MEDS ORDERED: PT OWN MED DRAWER 7, Y5N ONE (22:02)
[2021-09-16] MEDS: ATORVASTATIN CA 80 MG TABLET (FP) PO SCH (22:11)
[2021-09-17] MEDS: CEFAZOLIN 2 GM in DEXTROSE 5%-WATER - 100 ML IVPB SCH ×3 (02:42→18:54)
[2021-09-17 08:15] LABS: BASO % 1.7 % (0-2.0); EOS % 6.6 % (0-4.5); HEMATOCRIT 37.7 % (35.4-49); HEMOGLOBIN 13.2 GM/dL (11.7-16.9); LYMPH % 20.1 % (8-40); MCH 33.9 pg (25.7-33.7); MEAN CELL VOLUME 96.7 fl (80-96); MEAN PLT VOLUME 7.5 fl (7.5-11.1); MONO % 11.4 % (3.8-10.2); NEUT % 60.2 % (42.8-82.8); PLATELET COUNT 197 10^3/uL (134-434); RDW 12.9 % (11.9-15.9); WHITE BLOOD COUNT 6.5 K/mm3 (4.0-10.0)
[2021-09-17 08:39] LABS: ALBUMIN 3.2 g/dl (3.4-5.0); CALCIUM 8.6 mg/dL (8.5-10.1)
[2021-09-17 08:40] LABS: BLOOD UREA NITROGEN 15.4 mg/dL (7-18); MAGNESIUM 2.1 mg/dL (1.8-2.4)
[2021-09-17 08:44] LABS: BILIRUBIN,TOTAL 0.3 mg/dL (0.2-1); TOT PROT 7.3 g/dl (6.4-8.2)
[2021-09-17] MEDS: NICOTINE 21 MG/24 HOURS TOPICAL PATCH TD SCH (09:16)
[2021-09-17] MEDS: MULTIVITAMINS (DAILY MVI) TABLET (FP) PO SCH (09:16)
[2021-09-17] MEDS: PANTOPRAZOLE 20 MG TABLET PO SCH (09:17)
[2021-09-17] MEDS: HEPARIN NA (PORCINE) 5,000 UNITS/ML 1ML VIAL SQ SCH ×2 (11:15→21:59)
[2021-09-17] MEDS: ASPIRIN 81 MG CHEWABLE TABLETS PO SCH (11:15)
[2021-09-17] MEDS: TICAGRELOR 90 MG TABLET PO SCH ×2 (11:15→21:59)
[2021-09-17] MEDS ORDERED: HEPARIN NA (PORCINE) 5,000 UNITS/ML 1ML VIAL ONE (15:50)
[2021-09-17] MEDS ORDERED: LIDOCAINE HCL 1%, 10 MG/ML (20ML VIAL) ONE (15:50)
[2021-09-17] MEDS ORDERED: MIDAZOLAM HCL 2 MG/2 ML SINGLE DOSE VIAL ONE ×2 (16:51)
[2021-09-17] MEDS ORDERED: ceFAZolin SODIUM 1 GM VIAL ONE (16:57)
[2021-09-17] MEDS ORDERED: ceFAZolin SODIUM 1 GM VIAL IVPB ONE (16:58)
[2021-09-17] MEDS ORDERED: LIDOCAINE HCL 1%, 10 MG/ML (20ML VIAL) NR ONE (17:03)
[2021-09-17] MEDS ORDERED: DEXAMETHASONE SOD PHOSPHATE 4 MG/1 ML VIAL ONE (17:04)
[2021-09-17] MEDS ORDERED: PROPOFOL 20 ML ONE (17:28)
[2021-09-17] MEDS ORDERED: ONDANSETRON 4 MG/2 ML VIAL IVPUSH PRN (17:59)
[2021-09-17] MEDS ORDERED: ALBUTEROL SO4 0.083% IH SOL 2.5 MG/3 ML VIAL.NEB. NEB PRN (18:00)
[2021-09-17] MEDS ORDERED: ACETAMINOPHEN 325 MG TABLET (FP) PO PRN (18:00)
[2021-09-17] MEDS ORDERED: PT OWN MED DRAWER 7, Y5N ONE (21:54)
[2021-09-17] MEDS: ATORVASTATIN CA 80 MG TABLET (FP) PO SCH (21:58)
[2021-09-18] MEDS ORDERED: PT OWN MED DRAWER 7, Y5N ONE (01:39)
[2021-09-18] MEDS: CEFAZOLIN 2 GM in DEXTROSE 5%-WATER - 100 ML IVPB SCH ×3 (01:56→17:22)
[2021-09-18] MEDS: NICOTINE 21 MG/24 HOURS TOPICAL PATCH TD SCH (09:59)
[2021-09-18] MEDS: HEPARIN NA (PORCINE) 5,000 UNITS/ML 1ML VIAL SQ SCH ×2 (10:00→21:23)
[2021-09-18] MEDS: ASPIRIN 81 MG CHEWABLE TABLETS PO SCH (10:01)
[2021-09-18] MEDS: TICAGRELOR 90 MG TABLET PO SCH ×2 (10:01→21:23)
[2021-09-18] MEDS: MULTIVITAMINS (DAILY MVI) TABLET (FP) PO SCH (10:01)
[2021-09-18] MEDS: PANTOPRAZOLE 20 MG TABLET PO SCH (10:01)
[2021-09-18] MEDS: ATORVASTATIN CA 80 MG TABLET (FP) PO SCH (21:24)
[2021-09-19] MEDS ORDERED: PT OWN MED DRAWER 7, Y5N ONE ×3 (00:54→09:32)
[2021-09-19] MEDS: CEFAZOLIN 2 GM in DEXTROSE 5%-WATER - 100 ML IVPB SCH ×2 (01:58→09:11)
[2021-09-19 08:47] LABS: BASO % 0.2 % (0-2.0); EOS % 0.5 % (0-4.5); HEMATOCRIT 37.1 % (35.4-49); HEMOGLOBIN 12.4 GM/dL (11.7-16.9); LYMPH % 10.9 % (8-40); MCH 33.1 pg (25.7-33.7); MCHC 33.3 g/dl (32.0-35.9); MEAN CELL VOLUME 99.4 fl (80-96); MEAN PLT VOLUME 8.2 fl (7.5-11.1); MONO % 5.6 % (3.8-10.2); NEUT % 82.8 % (42.8-82.8); PLATELET COUNT 208 10^3/uL (134-434); RBC 3.73 M/mm3 (4.00-5.60); RDW 12.9 % (11.9-15.9)
[2021-09-19] MEDS: ASPIRIN 81 MG CHEWABLE TABLETS PO SCH (09:11)
[2021-09-19] MEDS: MULTIVITAMINS (DAILY MVI) TABLET (FP) PO SCH (09:11)
[2021-09-19] MEDS: PANTOPRAZOLE 20 MG TABLET PO SCH (09:11)
[2021-09-19] MEDS: HEPARIN NA (PORCINE) 5,000 UNITS/ML 1ML VIAL SQ SCH (09:11)
[2021-09-19] MEDS: TICAGRELOR 90 MG TABLET PO SCH ×2 (09:12→09:33)
[2021-09-19] MEDS: NICOTINE 21 MG/24 HOURS TOPICAL PATCH TD SCH (09:12)
[2021-09-19 09:14] LABS: CALCIUM 8.8 mg/dL (8.5-10.1)
[2021-09-19 09:15] LABS: ALBUMIN 3.1 g/dl (3.4-5.0); BLOOD UREA NITROGEN 17.5 mg/dL (7-18); MAGNESIUM 2.2 mg/dL (1.8-2.4)
[2021-09-19 09:17] LABS: BILIRUBIN,DIRECT 0.1 mg/dL (0.0-0.2)
[2021-09-19 09:19] LABS: BILIRUBIN,TOTAL 0.2 mg/dL (0.2-1); TOT PROT 7.1 g/dl (6.4-8.2)
[2021-09-19 09:48] VITALS: BP 128/60; PULSE 90; TEMP 98
== END 2021-09-19 11:41 | disposition home or self-care (01) | DRG 253 ==
LOC: JER 12:50 → JERBED 14:25 → J7W 19:52
PROVIDERS: ADMIT Family Medicine; ATTEND Family Medicine
PROC: 047L3DZ Dilation of Left Femoral Artery with Intraluminal Device, Percutaneous Approach (ICD-10-PCS; 2021-09-17)
PROC: B40GYZZ Plain Radiography of Left Lower Extremity Arteries using Other Contrast (ICD-10-PCS; 2021-09-17)
PROC: B40DYZZ Plain Radiography of Aorta and Bilateral Lower Extremity Arteries using Other Contrast (ICD-10-PCS; 2021-09-17)
PROC: 047N3ZZ Dilation of Left Popliteal Artery, Percutaneous Approach (ICD-10-PCS; principal; 2021-09-17 16:00)
DX: I73.9 Peripheral vascular disease, unspecified (principal); C34.90 Malignant neoplasm of unspecified part of unspecified bronchus or lung; L97.528 Non-pressure chronic ulcer of other part of left foot with other specified severity; L03.116 Cellulitis of left lower limb; S91.309A Unspecified open wound, unspecified foot, initial encounter; I10 Essential (primary) hypertension; I25.10 Atherosclerotic heart disease of native coronary artery without angina pectoris; I25.2 Old myocardial infarction; F41.8 Other specified anxiety disorders; Z85.118 Personal history of other malignant neoplasm of bronchus and lung; Z95.5 Presence of coronary angioplasty implant and graft
CPT/HCPCS: 36415; 71045-TC-FY; 73630-TC-LT; 73718-TC-LT; 75635-TC; 76000-TC-FY; 80048; 80053; 80061; 80076; 82607; 83036; 83735; 85025; 85610; 85730; 86140; 86780; 86850; 86900; 86901; 87040; 94760; 97116-GP; 97161-GP; 99285-25; C9803; J1644; Q9967; U0003; U0005

== ENCOUNTER 2021-10-02 06:30 | Day surgery (SDC) | payer OTHER ==
[2021-10-02] MEDS ORDERED: SODIUM CHLORIDE 250 ML IV ONE (10:00)
[2021-10-02] MEDS ORDERED: PEMBROLIZUMAB 200 MG in SODIUM CHLORIDE 100 ML IV ONE (11:00)
[2021-10-02 12:36] LABS: BASO % 1.2 % (0-2.0); EOS % 6.3 % (0-4.5); HEMATOCRIT 38.2 % (35.4-49); HEMOGLOBIN 12.8 GM/dL (11.7-16.9); LYMPH % 19.5 % (8-40); MCH 33.8 pg (25.7-33.7); MCHC 33.5 g/dl (32.0-35.9); MEAN CELL VOLUME 100.9 fl (80-96); MEAN PLT VOLUME 7.6 fl (7.5-11.1); MONO % 6.9 % (3.8-10.2); NEUT % 66.1 % (42.8-82.8); PLATELET COUNT 233 10^3/uL (134-434); RBC 3.78 M/mm3 (4.00-5.60); RDW 13.5 % (11.9-15.9); WHITE BLOOD COUNT 10.2 K/mm3 (4.0-10.0)
[2021-10-02 14:12] LABS: ALBUMIN 3.6 g/dl (3.4-5.0); BILIRUBIN,DIRECT 0.2 mg/dL (0.0-0.2); BILIRUBIN,TOTAL 0.4 mg/dL (0.2-1); BLOOD UREA NITROGEN 15.8 mg/dL (7-18); CALCIUM 8.9 mg/dL (8.5-10.1); CREATININE 1.1 mg/dL (0.55-1.3); MAGNESIUM 2.3 mg/dL (1.8-2.4); TOT PROT 7.9 g/dl (6.4-8.2)
[2021-10-02 16:22] VITALS: TEMP 97.5
[2021-10-02 17:19] VITALS: BP 112/64; PULSE 78
== END 2021-10-02 17:00 | disposition home or self-care (01) ==
LOC: JONCCHEMO 06:30
PROVIDERS: ATTEND Internal Medicine Hematology & Oncology
DX: Z51.11 Encounter for antineoplastic chemotherapy (principal); C34.92 Malignant neoplasm of unspecified part of left bronchus or lung
CPT/HCPCS: 36415; 80048; 80076; 82378; 83735; 85025; 87517; 96361; 96413; J9271

== ENCOUNTER 2021-10-23 06:55 | Day surgery (SDC) | payer OTHER ==
[2021-10-23] MEDS ORDERED: SODIUM CHLORIDE 250 ML IV ONE (10:00)
[2021-10-23] MEDS ORDERED: PEMBROLIZUMAB 200 MG in SODIUM CHLORIDE 100 ML IV ONE (11:00)
[2021-10-23 11:26] LABS: BASO % 1.2 % (0-2.0); EOS % 4.5 % (0-4.5); HEMATOCRIT 37.2 % (35.4-49); HEMOGLOBIN 12.7 GM/dL (11.7-16.9); LYMPH % 19.7 % (8-40); MCH 33.9 pg (25.7-33.7); MCHC 34.2 g/dl (32.0-35.9); MEAN CELL VOLUME 99.1 fl (80-96); MEAN PLT VOLUME 7.4 fl (7.5-11.1); MONO % 9.5 % (3.8-10.2); NEUT % 65.1 % (42.8-82.8); PLATELET COUNT 236 10^3/uL (134-434); RBC 3.75 M/mm3 (4.00-5.60); RDW 12.9 % (11.9-15.9); WHITE BLOOD COUNT 8.1 K/mm3 (4.0-10.0)
[2021-10-23 11:46] LABS: CALCIUM 9.5 mg/dL (8.5-10.1)
[2021-10-23 11:47] LABS: ALBUMIN 3.7 g/dl (3.4-5.0); BLOOD UREA NITROGEN 15.2 mg/dL (7-18); MAGNESIUM 2.1 mg/dL (1.8-2.4)
[2021-10-23 11:50] LABS: BILIRUBIN,DIRECT 0.2 mg/dL (0.0-0.2); CREATININE 1.1 mg/dL (0.55-1.3)
[2021-10-23 11:51] LABS: TOT PROT 8.2 g/dl (6.4-8.2)
[2021-10-23 11:58] LABS: BILIRUBIN,TOTAL 0.5 mg/dL (0.2-1)
[2021-10-23 19:06] VITALS: BP 94/50; PULSE 85; TEMP 98.1
== END 2021-10-23 14:10 | disposition home or self-care (01) ==
LOC: JONCCHEMO 06:55
PROVIDERS: ATTEND Internal Medicine Hematology & Oncology
DX: Z51.11 Encounter for antineoplastic chemotherapy (principal); C34.92 Malignant neoplasm of unspecified part of left bronchus or lung; C79.9 Secondary malignant neoplasm of unspecified site
CPT/HCPCS: 36415; 80048; 80076; 82150; 82533; 83690; 83735; 84439; 84443; 85025; 96361; 96413; J9271

== ENCOUNTER 2021-11-13 07:11 | Day surgery (SDC) | payer OTHER ==
[2021-11-13] MEDS ORDERED: SODIUM CHLORIDE 250 ML IV ONE (09:00)
[2021-11-13] MEDS ORDERED: PEMBROLIZUMAB 200 MG in SODIUM CHLORIDE 100 ML IV ONE (10:00)
[2021-11-13 11:53] LABS: BASO % 1.2 % (0-2.0); EOS % 3.5 % (0-4.5); HEMOGLOBIN 13.9 GM/dL (11.7-16.9); LYMPH % 16.8 % (8-40); MCH 33.2 pg (25.7-33.7); MCHC 33.1 g/dl (32.0-35.9); MEAN CELL VOLUME 100.2 fl (80-96); MEAN PLT VOLUME 7.3 fl (7.5-11.1); NEUT % 65.5 % (42.8-82.8); PLATELET COUNT 256 10^3/uL (134-434); RBC 4.19 M/mm3 (4.00-5.60); RDW 12.6 % (11.9-15.9); WHITE BLOOD COUNT 7.9 K/mm3 (4.0-10.0)
[2021-11-13 12:20] LABS: CALCIUM 9.1 mg/dL (8.5-10.1)
[2021-11-13 12:21] LABS: ALBUMIN 3.8 g/dl (3.4-5.0); BLOOD UREA NITROGEN 13.6 mg/dL (7-18)
[2021-11-13 12:23] LABS: BILIRUBIN,DIRECT 0.2 mg/dL (0.0-0.2)
[2021-11-13 12:24] LABS: CREATININE 1.1 mg/dL (0.55-1.3)
[2021-11-13 12:25] LABS: BILIRUBIN,TOTAL 0.5 mg/dL (0.2-1); TOT PROT 8.3 g/dl (6.4-8.2)
[2021-11-13 15:05] VITALS: BP 110/53; PULSE 85
[2021-11-13 16:35] VITALS: TEMP 98.4
== END 2021-11-13 14:45 | disposition home or self-care (01) ==
LOC: JONCCHEMO 07:11
PROVIDERS: ATTEND Internal Medicine Hematology & Oncology
DX: Z51.11 Encounter for antineoplastic chemotherapy (principal); C34.92 Malignant neoplasm of unspecified part of left bronchus or lung; C79.9 Secondary malignant neoplasm of unspecified site
CPT/HCPCS: 36415; 80048; 80076; 82150; 82378; 82533; 83690; 83735; 84439; 84443; 85025; 96361; 96413; J9271

== ENCOUNTER 2021-12-04 06:54 | Day surgery (SDC) | payer OTHER ==
[2021-12-04] MEDS ORDERED: SODIUM CHLORIDE 250 ML IV ONE (10:00)
[2021-12-04] MEDS ORDERED: PEMBROLIZUMAB 200 MG in SODIUM CHLORIDE 100 ML IV ONE (11:00)
[2021-12-04 12:40] LABS: BASO % 1.5 % (0-2.0); EOS % 2.8 % (0-4.5); HEMATOCRIT 41.2 % (35.4-49); HEMOGLOBIN 13.7 GM/dL (11.7-16.9); LYMPH % 22.8 % (8-40); MCHC 33.3 g/dl (32.0-35.9); MEAN CELL VOLUME 99.2 fl (80-96); MEAN PLT VOLUME 7.7 fl (7.5-11.1); MONO % 10.9 % (3.8-10.2); PLATELET COUNT 264 10^3/uL (134-434); RBC 4.15 M/mm3 (4.00-5.60); RDW 12.2 % (11.9-15.9); WHITE BLOOD COUNT 7.6 K/mm3 (4.0-10.0)
[2021-12-04 13:04] LABS: CALCIUM 9.3 mg/dL (8.5-10.1)
[2021-12-04 13:05] LABS: ALBUMIN 3.8 g/dl (3.4-5.0); BLOOD UREA NITROGEN 10.8 mg/dL (7-18); MAGNESIUM 2.3 mg/dL (1.8-2.4)
[2021-12-04 13:07] LABS: BILIRUBIN,DIRECT 0.1 mg/dL (0.0-0.2)
[2021-12-04 13:08] LABS: CREATININE 1.1 mg/dL (0.55-1.3)
[2021-12-04 13:10] LABS: BILIRUBIN,TOTAL 0.4 mg/dL (0.2-1)
[2021-12-04 16:49] VITALS: BP 102/51; PULSE 78; TEMP 98.5
[2021-12-05 10:07] LABS: CARCINOEMBRYONIC ANTIGEN 3.6 ng/mL (0.0-4.7)
== END 2021-12-04 15:15 | disposition home or self-care (01) ==
LOC: JONCCHEMO 06:54
PROVIDERS: ATTEND Internal Medicine Hematology & Oncology
PROC: 3E03305 Introduction of Other Antineoplastic into Peripheral Vein, Percutaneous Approach (ICD-10-PCS; principal; 2021-12-04)
PROC: 3E0337Z Introduction of Electrolytic and Water Balance Substance into Peripheral Vein, Percutaneous Approach (ICD-10-PCS; 2021-12-04)
DX: Z51.11 Encounter for antineoplastic chemotherapy (principal); C34.92 Malignant neoplasm of unspecified part of left bronchus or lung; C79.9 Secondary malignant neoplasm of unspecified site
CPT/HCPCS: 36415; 80048; 80076; 82150; 82378; 82533; 83735; 84439; 84443; 85025; 87517; 96361; 96413; J9271

== ENCOUNTER 2021-12-25 06:35 | Day surgery (SDC) | payer OTHER ==
[2021-12-25] MEDS ORDERED: SODIUM CHLORIDE 250 ML IV ONE (10:00)
[2021-12-25] MEDS ORDERED: PEMBROLIZUMAB 200 MG in SODIUM CHLORIDE 50 ML IV ONE (10:00)
[2021-12-25 12:10] LABS: BASO % 1.1 % (0-2.0); EOS % 2.8 % (0-4.5); HEMATOCRIT 39.9 % (35.4-49); HEMOGLOBIN 13.9 GM/dL (11.7-16.9); LYMPH % 17.4 % (8-40); MCH 33.9 pg (25.7-33.7); MCHC 34.8 g/dl (32.0-35.9); MEAN CELL VOLUME 97.4 fl (80-96); MEAN PLT VOLUME 7.4 fl (7.5-11.1); MONO % 9.2 % (3.8-10.2); NEUT % 69.5 % (42.8-82.8); PLATELET COUNT 256 10^3/uL (134-434); RDW 12.3 % (11.9-15.9); WHITE BLOOD COUNT 7.6 K/mm3 (4.0-10.0)
[2021-12-25 13:57] LABS: ALBUMIN 3.9 g/dl (3.4-5.0); BLOOD UREA NITROGEN 9.7 mg/dL (7-18); CALCIUM 9.6 mg/dL (8.5-10.1)
[2021-12-25 13:58] LABS: MAGNESIUM 2.1 mg/dL (1.8-2.4)
[2021-12-25 13:59] LABS: BILIRUBIN,DIRECT 0.2 mg/dL (0.0-0.2)
[2021-12-25 14:01] LABS: TOT PROT 8.1 g/dl (6.4-8.2)
[2021-12-25 14:02] LABS: BILIRUBIN,TOTAL 0.5 mg/dL (0.2-1)
[2021-12-25 17:30] VITALS: TEMP 98.2
[2021-12-25 17:45] VITALS: BP 109/51; PULSE 96
[2021-12-26 07:07] LABS: CARCINOEMBRYONIC ANTIGEN 3.8 ng/mL (0.0-4.7)
== END 2021-12-25 15:35 | disposition home or self-care (01) ==
LOC: JONCCHEMO 06:35
PROVIDERS: ATTEND Internal Medicine Hematology & Oncology
DX: Z51.11 Encounter for antineoplastic chemotherapy (principal); C34.90 Malignant neoplasm of unspecified part of unspecified bronchus or lung
CPT/HCPCS: 36415; 80048; 80076; 82150; 82378; 82533; 83690; 83735; 84439; 84443; 85025; 87517; 96361; 96413; J9271

== ENCOUNTER 2022-01-15 07:09 | Day surgery (SDC) | payer OTHER ==
[2022-01-15] MEDS ORDERED: SODIUM CHLORIDE 250 ML IV ONE (09:00)
[2022-01-15] MEDS ORDERED: PEMBROLIZUMAB 200 MG in SODIUM CHLORIDE 100 ML IV ONE (10:00)
[2022-01-15 11:57] LABS: BASO % 1.3 % (0-2.0); EOS % 3.1 % (0-4.5); HEMATOCRIT 38.4 % (35.4-49); HEMOGLOBIN 13.3 GM/dL (11.7-16.9); LYMPH % 19.8 % (8-40); MCH 33.9 pg (25.7-33.7); MCHC 34.7 g/dl (32.0-35.9); MEAN CELL VOLUME 97.8 fl (80-96); MEAN PLT VOLUME 7.3 fl (7.5-11.1); MONO % 8.6 % (3.8-10.2); NEUT % 67.2 % (42.8-82.8); PLATELET COUNT 220 10^3/uL (134-434); RBC 3.93 M/mm3 (4.00-5.60); RDW 12.2 % (11.9-15.9); WHITE BLOOD COUNT 8.6 K/mm3 (4.0-10.0)
[2022-01-15 12:03] VITALS: TEMP 97.2
[2022-01-15 12:14] LABS: CALCIUM 8.9 mg/dL (8.5-10.1)
[2022-01-15 12:15] LABS: ALBUMIN 3.6 g/dl (3.4-5.0); BLOOD UREA NITROGEN 12.4 mg/dL (7-18)
[2022-01-15 12:17] LABS: BILIRUBIN,DIRECT 0.1 mg/dL (0.0-0.2); CREATININE 1.1 mg/dL (0.55-1.3)
[2022-01-15 12:19] LABS: BILIRUBIN,TOTAL 0.4 mg/dL (0.2-1)
[2022-01-15 14:44] VITALS: BP 102/50; PULSE 79
== END 2022-01-15 13:50 | disposition home or self-care (01) ==
LOC: JONCCHEMO 07:09
PROVIDERS: ATTEND Internal Medicine Hematology & Oncology
DX: Z51.11 Encounter for antineoplastic chemotherapy (principal); C34.90 Malignant neoplasm of unspecified part of unspecified bronchus or lung
CPT/HCPCS: 36415; 80048; 80076; 82150; 82378; 82533; 83690; 83735; 84439; 84443; 85025; 96361; 96413; J9271

== ENCOUNTER 2022-02-05 07:15 | Day surgery (SDC) | payer OTHER ==
[2022-02-05] MEDS ORDERED: SODIUM CHLORIDE 250 ML IV ONE (10:00)
[2022-02-05] MEDS ORDERED: PEMBROLIZUMAB 200 MG in SODIUM CHLORIDE 100 ML IV ONE (11:00)
[2022-02-05 11:57] LABS: BASO % 1.3 % (0-2.0); EOS % 3.7 % (0-4.5); HEMATOCRIT 38.9 % (35.4-49); HEMOGLOBIN 13.4 GM/dL (11.7-16.9); LYMPH % 20.7 % (8-40); MCH 33.3 pg (25.7-33.7); MCHC 34.5 g/dl (32.0-35.9); MEAN CELL VOLUME 96.5 fl (80-96); MEAN PLT VOLUME 7.6 fl (7.5-11.1); MONO % 9.7 % (3.8-10.2); NEUT % 64.6 % (42.8-82.8); PLATELET COUNT 223 10^3/uL (134-434); RBC 4.03 M/mm3 (4.00-5.60); WHITE BLOOD COUNT 9.5 K/mm3 (4.0-10.0)
[2022-02-05 12:23] LABS: CALCIUM 9.5 mg/dL (8.5-10.1)
[2022-02-05 12:24] LABS: ALBUMIN 3.8 g/dl (3.4-5.0)
[2022-02-05 12:26] LABS: BILIRUBIN,DIRECT 0.1 mg/dL (0.0-0.2); CREATININE 1.1 mg/dL (0.55-1.3)
[2022-02-05 12:28] LABS: BILIRUBIN,TOTAL 0.4 mg/dL (0.2-1); TOT PROT 8.1 g/dl (6.4-8.2)
[2022-02-05 18:22] VITALS: BP 105/56; PULSE 108; TEMP 98.7
== END 2022-02-05 14:45 | disposition home or self-care (01) ==
LOC: JONCCHEMO 07:15
PROVIDERS: ATTEND Internal Medicine Hematology & Oncology
DX: Z51.11 Encounter for antineoplastic chemotherapy (principal); C34.90 Malignant neoplasm of unspecified part of unspecified bronchus or lung
CPT/HCPCS: 36415; 80048; 80076; 82150; 82378; 82533; 83690; 83735; 84439; 84443; 85025; 87517; 96413; J9271

== ENCOUNTER 2022-02-26 06:35 | Day surgery (SDC) | payer OTHER ==
[2022-02-26] MEDS ORDERED: SODIUM CHLORIDE 250 ML IV ONE (09:00)
[2022-02-26] MEDS ORDERED: PEMBROLIZUMAB 200 MG in SODIUM CHLORIDE 100 ML IV ONE (10:00)
[2022-02-26 12:28] LABS: BASO % 0.7 % (0-2.0); EOS % 1.5 % (0-4.5); HEMATOCRIT 38.8 % (35.4-49); HEMOGLOBIN 13.4 GM/dL (11.7-16.9); LYMPH % 20.6 % (8-40); MCH 33.3 pg (25.7-33.7); MCHC 34.6 g/dl (32.0-35.9); MEAN CELL VOLUME 96.1 fl (80-96); MEAN PLT VOLUME 7.2 fl (7.5-11.1); MONO % 9.8 % (3.8-10.2); NEUT % 67.4 % (42.8-82.8); PLATELET COUNT 273 10^3/uL (134-434); RBC 4.03 M/mm3 (4.00-5.60); RDW 12.3 % (11.9-15.9); WHITE BLOOD COUNT 8.9 K/mm3 (4.0-10.0)
[2022-02-26 12:46] LABS: CALCIUM 9.4 mg/dL (8.5-10.1)
[2022-02-26 12:47] LABS: ALBUMIN 3.9 g/dl (3.4-5.0); BLOOD UREA NITROGEN 9.4 mg/dL (7-18); MAGNESIUM 2.1 mg/dL (1.8-2.4)
[2022-02-26 12:49] LABS: BILIRUBIN,DIRECT 0.1 mg/dL (0.0-0.2); CREATININE 1.1 mg/dL (0.55-1.3)
[2022-02-26 12:51] LABS: BILIRUBIN,TOTAL 0.5 mg/dL (0.2-1); TOT PROT 8.4 g/dl (6.4-8.2)
[2022-02-26 16:23] VITALS: BP 107/58; PULSE 100; TEMP 98.6
== END 2022-02-26 14:30 | disposition home or self-care (01) ==
LOC: JONCCHEMO 06:35
PROVIDERS: ATTEND Internal Medicine Hematology & Oncology
DX: Z51.11 Encounter for antineoplastic chemotherapy (principal); C34.92 Malignant neoplasm of unspecified part of left bronchus or lung
CPT/HCPCS: 36415; 80048; 80076; 82150; 82533; 83690; 83735; 84439; 84443; 85025; 87517; 96361; 96413; J9271

== ENCOUNTER 2022-03-19 06:48 | Day surgery (SDC) | payer OTHER ==
[2022-03-19] MEDS ORDERED: SODIUM CHLORIDE 250 ML IV ONE (09:00)
[2022-03-19] MEDS ORDERED: PEMBROLIZUMAB 200 MG in SODIUM CHLORIDE 100 ML IV ONE (10:00)
[2022-03-19 12:45] LABS: BASO % 0.7 % (0-2.0); EOS % 1.7 % (0-4.5); HEMATOCRIT 37.4 % (35.4-49); HEMOGLOBIN 12.9 GM/dL (11.7-16.9); MCH 32.6 pg (25.7-33.7); MCHC 34.4 g/dl (32.0-35.9); MEAN CELL VOLUME 94.9 fl (80-96); MEAN PLT VOLUME 7.2 fl (7.5-11.1); MONO % 10.6 % (3.8-10.2); PLATELET COUNT 272 10^3/uL (134-434); RBC 3.94 M/mm3 (4.00-5.60); RDW 12.1 % (11.9-15.9); WHITE BLOOD COUNT 9.3 K/mm3 (4.0-10.0)
[2022-03-19 12:58] LABS: BLOOD UREA NITROGEN 9.2 mg/dL (7-18); CALCIUM 9.3 mg/dL (8.5-10.1)
[2022-03-19 12:59] LABS: ALBUMIN 3.4 g/dl (3.4-5.0); MAGNESIUM 2.2 mg/dL (1.8-2.4)
[2022-03-19 13:01] LABS: BILIRUBIN,DIRECT 0.2 mg/dL (0.0-0.2)
[2022-03-19 13:03] LABS: BILIRUBIN,TOTAL 0.5 mg/dL (0.2-1); TOT PROT 7.9 g/dl (6.4-8.2)
[2022-03-19 17:18] VITALS: PULSE 89; TEMP 98.3
[2022-03-19 17:23] VITALS: BP 129/59
== END 2022-03-19 14:45 | disposition home or self-care (01) ==
LOC: JONCCHEMO 06:48
PROVIDERS: ATTEND Internal Medicine Hematology & Oncology
DX: Z51.11 Encounter for antineoplastic chemotherapy (principal); C34.92 Malignant neoplasm of unspecified part of left bronchus or lung
CPT/HCPCS: 36415; 80048; 80076; 82150; 82378; 82533; 83690; 83735; 84439; 84443; 85025; 96361; 96413; J9271

== ENCOUNTER 2022-04-09 06:46 | Day surgery (SDC) | payer OTHER ==
[2022-04-09] MEDS ORDERED: SODIUM CHLORIDE 250 ML IV ONE (09:00)
[2022-04-09] MEDS ORDERED: PEMBROLIZUMAB 200 MG in SODIUM CHLORIDE 100 ML IV ONE (10:00)
[2022-04-09 12:54] LABS: BASO % 0.6 % (0-2.0); EOS % 1.7 % (0-4.5); HEMOGLOBIN 11.6 GM/dL (11.7-16.9); LYMPH % 12.9 % (8-40); MCH 31.8 pg (25.7-33.7); MCHC 34.2 g/dl (32.0-35.9); MEAN CELL VOLUME 93.2 fl (80-96); MEAN PLT VOLUME 7.5 fl (7.5-11.1); MONO % 11.2 % (3.8-10.2); NEUT % 73.6 % (42.8-82.8); PLATELET COUNT 304 10^3/uL (134-434); RBC 3.64 M/mm3 (4.00-5.60); RDW 11.7 % (11.9-15.9); WHITE BLOOD COUNT 13.1 K/mm3 (4.0-10.0)
[2022-04-09 13:07] LABS: ALBUMIN 3.2 g/dl (3.4-5.0); BLOOD UREA NITROGEN 13.7 mg/dL (7-18); CALCIUM 9.4 mg/dL (8.5-10.1); MAGNESIUM 2.2 mg/dL (1.8-2.4)
[2022-04-09 13:09] LABS: BILIRUBIN,DIRECT 0.2 mg/dL (0.0-0.2); CREATININE 0.9 mg/dL (0.55-1.3)
[2022-04-09 13:11] LABS: BILIRUBIN,TOTAL 0.5 mg/dL (0.2-1)
[2022-04-09 18:34] VITALS: TEMP 98.6
[2022-04-09 18:50] VITALS: BP 99/49; PULSE 86
== END 2022-04-09 15:00 | disposition home or self-care (01) ==
LOC: JONCCHEMO 06:46
PROVIDERS: ATTEND Internal Medicine Hematology & Oncology
PROC: 3E03305 Introduction of Other Antineoplastic into Peripheral Vein, Percutaneous Approach (ICD-10-PCS; principal; 2022-04-09)
PROC: 3E0337Z Introduction of Electrolytic and Water Balance Substance into Peripheral Vein, Percutaneous Approach (ICD-10-PCS; 2022-04-09)
DX: Z51.11 Encounter for antineoplastic chemotherapy (principal); C34.92 Malignant neoplasm of unspecified part of left bronchus or lung
CPT/HCPCS: 36415; 80048; 80076; 82150; 82378; 82533; 83690; 83735; 84439; 84443; 85025; 96361; 96413; J9271

== ENCOUNTER 2022-04-30 10:24 | Inpatient (IN) | payer OTHER ==
[2022-04-30 13:40] LABS: INR 1.52 (0.83-1.09); PROTHROMBIN TIME (PATIENT) 17.5 SEC (9.7-13.0)
[2022-04-30] MEDS ORDERED: HEPARIN NA (PORCINE) 5,000 UNITS/ML 1ML VIAL IVPUSH PRN ×3 (15:06→15:15)
[2022-04-30] MEDS ORDERED: HEPARIN NA (PORCINE) 5,000 UNITS/ML 1ML VIAL IVPUSH ONE ×2 (15:17→15:23)
[2022-04-30] MEDS ORDERED: HEPARIN NA (PORCINE) 5,000 UNITS/ML 1ML VIAL ONE (15:18)
[2022-04-30] MEDS ORDERED: HEPARIN INFUSION - 25,000 UNITS/500 ML INFUS.BAG IVPB ONE (15:18)
[2022-04-30] MEDS: HEPARIN - 25,000 UNIT in SODIUM CHLORIDE 495 ML IV SCH (15:50)
[2022-04-30] MEDS ORDERED: ALBUTEROL SO4 2.5/IPRATROPIUM 0.5 INH SOL 3 ML VIAL.NEB. NEB PRN (17:04)
[2022-04-30] MEDS: ATORVASTATIN CA 80 MG TABLET (FP) PO SCH (23:47)
[2022-05-01] MEDS ORDERED: ATORVASTATIN CA 80 MG TABLET (FP) ONE (01:55)
[2022-05-01 03:00] VITALS: BMI 21.4
[2022-05-01] MEDS: ACETAMINOPHEN 325 MG TABLET (FP) PO PRN (06:49)
[2022-05-01 08:52] LABS: HEMATOCRIT 29.9 % (35.4-49); MCHC 33.6 g/dl (32.0-35.9); MEAN CELL VOLUME 92.4 fl (80-96); MEAN PLT VOLUME 7.2 fl (7.5-11.1); PLATELET COUNT 316 10^3/uL (134-434); RBC 3.24 M/mm3 (4.00-5.60); RDW 12.2 % (11.9-15.9)
[2022-05-01 09:36] LABS: BLOOD UREA NITROGEN 9.7 mg/dL (7-18)
[2022-05-01 09:37] LABS: ALBUMIN 2.5 g/dl (3.4-5.0)
[2022-05-01 09:39] LABS: BILIRUBIN,TOTAL 0.5 mg/dL (0.2-1); CREATININE 0.8 mg/dL (0.55-1.3)
[2022-05-01 09:40] LABS: TOT PROT 6.7 g/dl (6.4-8.2)
[2022-05-01] MEDS: HEPARIN - 25,000 UNIT in SODIUM CHLORIDE 495 ML IV SCH (15:29)
[2022-05-01] MEDS: ATORVASTATIN CA 80 MG TABLET (FP) PO SCH (22:02)
[2022-05-02] MEDS: ACETAMINOPHEN 325 MG TABLET (FP) PO PRN (08:25)
[2022-05-02 08:51] LABS: HEMATOCRIT 30.7 % (35.4-49); HEMOGLOBIN 10.1 GM/dL (11.7-16.9); MCH 30.9 pg (25.7-33.7); MEAN CELL VOLUME 93.5 fl (80-96); PLATELET COUNT 337 10^3/uL (134-434); RBC 3.28 M/mm3 (4.00-5.60); RDW 12.2 % (11.9-15.9); WHITE BLOOD COUNT 17.1 K/mm3 (4.0-10.0)
[2022-05-02 09:12] LABS: ALBUMIN 2.4 g/dl (3.4-5.0)
[2022-05-02 09:13] LABS: BLOOD UREA NITROGEN 8.5 mg/dL (7-18)
[2022-05-02 09:14] LABS: CALCIUM 8.7 mg/dL (8.5-10.1); CREATININE 0.7 mg/dL (0.55-1.3)
[2022-05-02 09:16] LABS: BILIRUBIN,TOTAL 0.4 mg/dL (0.2-1); TOT PROT 6.5 g/dl (6.4-8.2)
[2022-05-02 09:19] LABS: PH,URINE 6.5 (5.0-8.0); URINE APPEARANCE CLEAR; URINE BILIRUBIN NEGATIVE (NEGATIVE); URINE COLOR YELLOW; URINE GLUCOSE (UA) NEGATIVE (NEGATIVE); URINE KETONE TRACE (NEGATIVE); URINE LEUK ESTERASE NEGATIVE (NEGATIVE); URINE NITRITE NEGATIVE (NEGATIVE); URINE PROTEIN NEGATIVE (NEGATIVE); URINE UROBILINOGEN 0.2 mg/dL (0.2-1.0)
[2022-05-02] MEDS ORDERED: HEPARIN NA (PORCINE) 5,000 UNITS/ML 1ML VIAL IVPUSH PRN ×2 (11:10)
[2022-05-02] MEDS: HEPARIN INFUSION - 25,000 UNITS/500 ML INFUS.BAG IVPB SCH ×2 (11:18→18:13)
[2022-05-02] MEDS: ATORVASTATIN CA 80 MG TABLET (FP) PO SCH (21:26)
[2022-05-03] MEDS: ACETAMINOPHEN 325 MG TABLET (FP) PO PRN (10:16)
[2022-05-03 10:26] LABS: HEMATOCRIT 30.9 % (35.4-49); HEMOGLOBIN 10.2 GM/dL (11.7-16.9); MCH 30.6 pg (25.7-33.7); MCHC 33.1 g/dl (32.0-35.9); MEAN CELL VOLUME 92.5 fl (80-96); PLATELET COUNT 343 10^3/uL (134-434); RBC 3.34 M/mm3 (4.00-5.60); RDW 12.2 % (11.9-15.9); WHITE BLOOD COUNT 15.9 K/mm3 (4.0-10.0)
[2022-05-03] MEDS ORDERED: HEPARIN NA (PORCINE) 5,000 UNITS/ML 1ML VIAL ONE ×2 (13:06→14:14)
[2022-05-03] MEDS ORDERED: LIDOCAINE HCL 1%, 10 MG/ML (20ML VIAL) ONE (13:06)
[2022-05-03] MEDS: HEPARIN INFUSION - 25,000 UNITS/500 ML INFUS.BAG IVPB SCH (13:34)
[2022-05-03] MEDS ORDERED: MIDAZOLAM HCL 2 MG/2 ML SINGLE DOSE VIAL ONE (13:45)
[2022-05-03] MEDS ORDERED: ceFAZolin SODIUM 1 GM VIAL IVPB ONE (13:55)
[2022-05-03] MEDS ORDERED: HEPARIN NA (PORCINE) 5,000 UNITS/ML 1ML VIAL IV ONE (14:01)
[2022-05-03] MEDS ORDERED: LIDOCAINE HCL 1%, 10 MG/ML (20ML VIAL) NR ONE ×2 (14:01)
[2022-05-03] MEDS ORDERED: KETOROLAC TROMETHAMINE 30 MG/1 ML VIAL ONE (15:06)
[2022-05-03] MEDS ORDERED: ONDANSETRON 4 MG/2 ML VIAL IVPUSH PRN ×2 (15:14→15:36)
[2022-05-03] MEDS ORDERED: PROMETHAZINE HCL 25 MG/1 ML VIAL IVPUSH PRN ×2 (15:14→15:36)
[2022-05-03] MEDS ORDERED: LACTATED RINGERS SOLUTION 1,000 ML IV SCH (15:15)
[2022-05-03] MEDS ORDERED: ALBUTEROL SO4 2.5/IPRATROPIUM 0.5 INH SOL 3 ML VIAL.NEB. NEB PRN (15:36)
[2022-05-03] MEDS: CLOPIDOGREL BISULFATE 75 MG TABLET (FP) PO SCH (15:45)
[2022-05-03] MEDS ORDERED: CLOPIDOGREL BISULFATE 75 MG TABLET (FP) ONE (15:54)
[2022-05-03] MEDS: LACTATED RINGERS SOLUTION 1,000 ML IV SCH (16:38)
[2022-05-03] MEDS: ATORVASTATIN CA 80 MG TABLET (FP) PO SCH (21:43)
[2022-05-04] MEDS: LACTATED RINGERS SOLUTION 1,000 ML IV SCH ×4 (01:39→22:04)
[2022-05-04] MEDS: ACETAMINOPHEN 325 MG TABLET (FP) PO PRN (03:42)
[2022-05-04 08:56] LABS: HEMATOCRIT 29.9 % (35.4-49); HEMOGLOBIN 9.9 GM/dL (11.7-16.9); MCH 30.7 pg (25.7-33.7); MCHC 33.2 g/dl (32.0-35.9); MEAN CELL VOLUME 92.4 fl (80-96); MEAN PLT VOLUME 7.1 fl (7.5-11.1); PLATELET COUNT 305 10^3/uL (134-434); RBC 3.24 M/mm3 (4.00-5.60); RDW 12.2 % (11.9-15.9); WHITE BLOOD COUNT 19.9 K/mm3 (4.0-10.0)
[2022-05-04] MEDS: CLOPIDOGREL BISULFATE 75 MG TABLET (FP) PO SCH (10:00)
[2022-05-04] MEDS ORDERED: PIPERACILLIN/TAZOB 3.375 GM 3.375 GM in DEXTROSE 5%-WATER - 50 ML IVPB ONE (10:37)
[2022-05-04] MEDS ORDERED: ceFAZolin SODIUM 1 GM VIAL ONE ×2 (11:06→17:12)
[2022-05-04] MEDS ORDERED: PIPERACILLIN/TAZOBACTAM 3.375 GM VIAL IVPB ONE (11:06)
[2022-05-04] MEDS ORDERED: DEXTROSE 5%-WATER - 50 ML IVPB ONE ×3 (11:06→17:13)
[2022-05-04] MEDS: CEFAZOLIN 1 GM in DEXTROSE 5%-WATER - 1 GM/50 ML IVPB IVPB SCH ×2 (11:13→17:18)
[2022-05-04 11:57] LABS: PH,URINE 6.5 (5.0-8.0); URINE APPEARANCE CLEAR; URINE BILIRUBIN NEGATIVE (NEGATIVE); URINE COLOR YELLOW; URINE GLUCOSE (UA) NEGATIVE (NEGATIVE); URINE KETONE TRACE (NEGATIVE); URINE LEUK ESTERASE NEGATIVE (NEGATIVE); URINE NITRITE NEGATIVE (NEGATIVE); URINE PROTEIN NEGATIVE (NEGATIVE); URINE UROBILINOGEN 0.2 mg/dL (0.2-1.0)
[2022-05-04] MEDS: BENZOCAINE/MENTH/CETYLPYRD CL 1 EACH LOZENGE MM PRN (15:30)
[2022-05-04] MEDS: ATORVASTATIN CA 80 MG TABLET (FP) PO SCH (22:04)
[2022-05-04] MEDS: ENOXAPARIN NA (PORCINE) 60 MG/0.6 ML DISP.SYRIN SQ SCH (22:04)
[2022-05-04] MEDS: guaiFENesin 200 MG/10 ML 10 ML UNIT-DOSE CUPS PO PRN (22:11)
[2022-05-05] MEDS ORDERED: ceFAZolin SODIUM 1 GM VIAL ONE ×3 (02:17→16:40)
[2022-05-05] MEDS ORDERED: DEXTROSE 5%-WATER - 50 ML IVPB ONE ×2 (02:18→16:40)
[2022-05-05] MEDS: CEFAZOLIN 1 GM in DEXTROSE 5%-WATER - 1 GM/50 ML IVPB IVPB SCH ×3 (02:23→17:01)
[2022-05-05] MEDS: ACETAMINOPHEN 325 MG TABLET (FP) PO PRN (04:24)
[2022-05-05 09:03] LABS: HEMATOCRIT 28.7 % (35.4-49); HEMOGLOBIN 9.4 GM/dL (11.7-16.9); MCH 30.6 pg (25.7-33.7); MCHC 32.6 g/dl (32.0-35.9); MEAN CELL VOLUME 93.7 fl (80-96); MEAN PLT VOLUME 7.5 fl (7.5-11.1); PLATELET COUNT 293 10^3/uL (134-434); RBC 3.07 M/mm3 (4.00-5.60); RDW 12.3 % (11.9-15.9); WHITE BLOOD COUNT 17.3 K/mm3 (4.0-10.0)
[2022-05-05] MEDS: ENOXAPARIN NA (PORCINE) 60 MG/0.6 ML DISP.SYRIN SQ SCH ×2 (09:19→21:47)
[2022-05-05] MEDS: LACTATED RINGERS SOLUTION 1,000 ML IV SCH ×2 (09:20→16:00)
[2022-05-05] MEDS: CLOPIDOGREL BISULFATE 75 MG TABLET (FP) PO SCH (09:20)
[2022-05-05] MEDS: guaiFENesin 200 MG/10 ML 10 ML UNIT-DOSE CUPS PO PRN ×2 (12:23→21:48)
[2022-05-05] MEDS: ATORVASTATIN CA 80 MG TABLET (FP) PO SCH (21:48)
[2022-05-06] MEDS ORDERED: ceFAZolin SODIUM 1 GM VIAL ONE ×3 (02:50→15:57)
[2022-05-06] MEDS: CEFAZOLIN 1 GM in DEXTROSE 5%-WATER - 1 GM/50 ML IVPB IVPB SCH ×3 (02:55→17:07)
[2022-05-06] MEDS: CLOPIDOGREL BISULFATE 75 MG TABLET (FP) PO SCH (09:34)
[2022-05-06] MEDS: ENOXAPARIN NA (PORCINE) 60 MG/0.6 ML DISP.SYRIN SQ SCH ×2 (09:34→21:05)
[2022-05-06] MEDS: BENZOCAINE/MENTH/CETYLPYRD CL 1 EACH LOZENGE MM PRN (11:27)
[2022-05-06] MEDS: guaiFENesin 200 MG/10 ML 10 ML UNIT-DOSE CUPS PO PRN (11:27)
[2022-05-06 12:02] LABS: HEMATOCRIT 29.8 % (35.4-49); HEMOGLOBIN 9.9 GM/dL (11.7-16.9); MCH 30.6 pg (25.7-33.7); MCHC 33.1 g/dl (32.0-35.9); MEAN CELL VOLUME 92.5 fl (80-96); MEAN PLT VOLUME 7.7 fl (7.5-11.1); PLATELET COUNT 293 10^3/uL (134-434); RBC 3.23 M/mm3 (4.00-5.60); RDW 12.2 % (11.9-15.9); WHITE BLOOD COUNT 16.6 K/mm3 (4.0-10.0)
[2022-05-06] MEDS: LACTATED RINGERS SOLUTION 1,000 ML IV SCH ×3 (13:50→22:41)
[2022-05-06] MEDS ORDERED: DEXTROSE 5%-WATER - 50 ML IVPB ONE (15:57)
[2022-05-06] MEDS: guaiFENesin 600 MG TABLET.ER (FP) PO SCH ×2 (17:54→21:08)
[2022-05-06] MEDS: ATORVASTATIN CA 80 MG TABLET (FP) PO SCH (21:05)
[2022-05-07] MEDS ORDERED: ceFAZolin SODIUM 1 GM VIAL ONE ×2 (01:59→09:36)
[2022-05-07] MEDS ORDERED: DEXTROSE 5%-WATER - 50 ML IVPB ONE ×2 (02:00→09:36)
[2022-05-07] MEDS: CEFAZOLIN 1 GM in DEXTROSE 5%-WATER - 1 GM/50 ML IVPB IVPB SCH ×2 (02:32→10:04)
[2022-05-07] MEDS: LACTATED RINGERS SOLUTION 1,000 ML IV SCH (06:48)
[2022-05-07] MEDS: ENOXAPARIN NA (PORCINE) 60 MG/0.6 ML DISP.SYRIN SQ SCH (10:05)
[2022-05-07] MEDS: guaiFENesin 600 MG TABLET.ER (FP) PO SCH (10:05)
[2022-05-07] MEDS: CLOPIDOGREL BISULFATE 75 MG TABLET (FP) PO SCH (10:05)
[2022-05-07] MEDS: BENZOCAINE/MENTH/CETYLPYRD CL 1 EACH LOZENGE MM PRN (10:05)
[2022-05-07 10:43] LABS: HEMATOCRIT 26.3 % (35.4-49); MCH 31.3 pg (25.7-33.7); MCHC 34.3 g/dl (32.0-35.9); MEAN CELL VOLUME 91.3 fl (80-96); MEAN PLT VOLUME 7.4 fl (7.5-11.1); PLATELET COUNT 285 10^3/uL (134-434); RBC 2.88 M/mm3 (4.00-5.60); RDW 12.3 % (11.9-15.9); WHITE BLOOD COUNT 15.3 K/mm3 (4.0-10.0)
[2022-05-07 11:09] LABS: CALCIUM 8.6 mg/dL (8.5-10.1)
[2022-05-07 11:10] LABS: ALBUMIN 2.2 g/dl (3.4-5.0); BLOOD UREA NITROGEN 5.7 mg/dL (7-18); MAGNESIUM 1.7 mg/dL (1.8-2.4)
[2022-05-07 11:13] LABS: CREATININE 0.7 mg/dL (0.55-1.3)
[2022-05-07 11:15] LABS: BILIRUBIN,TOTAL 0.5 mg/dL (0.2-1); TOT PROT 6.1 g/dl (6.4-8.2)
[2022-05-07 14:36] VITALS: BP 88/51; PULSE 85; TEMP 98.9
[2022-05-07] MEDS ORDERED: LACTATED RINGERS SOLUTION 1,000 ML IV SCH (14:54)
[2022-05-07] MEDS ORDERED: MAGNESIUM OXIDE 400 MG TABLET (FP) PO ONE (14:54)
== END 2022-05-07 16:05 | disposition left against medical advice (07) | DRG 253 ==
LOC: JER 10:24 → JERBED 16:02 → J6S 05-01 02:37
PROVIDERS: ADMIT Family Medicine; ATTEND Family Medicine
PROC: 3E05317 Introduction of Other Thrombolytic into Peripheral Artery, Percutaneous Approach (ICD-10-PCS; 2022-05-03)
PROC: B41DZZZ Fluoroscopy of Aorta and Bilateral Lower Extremity Arteries (ICD-10-PCS; 2022-05-03)
PROC: X27J385 Dilation of Left Femoral Artery with Sustained Release Drug-eluting Intraluminal Device, Percutaneous Approach, New Technology Group 5 (ICD-10-PCS; principal; 2022-05-03 14:00)
DX: T82.868A Thrombosis due to vascular prosthetic devices, implants and grafts, initial encounter (principal); C34.90 Malignant neoplasm of unspecified part of unspecified bronchus or lung; C34.92 Malignant neoplasm of unspecified part of left bronchus or lung; J96.11 Chronic respiratory failure with hypoxia; I96 Gangrene, not elsewhere classified; E87.1 Hypo-osmolality and hyponatremia; E11.52 Type 2 diabetes mellitus with diabetic peripheral angiopathy with gangrene; I72.4 Aneurysm of artery of lower extremity; E11.621 Type 2 diabetes mellitus with foot ulcer; I10 Essential (primary) hypertension; E78.5 Hyperlipidemia, unspecified; F17.210 Nicotine dependence, cigarettes, uncomplicated; E83.42 Hypomagnesemia; Y83.9 Surgical procedure, unspecified as the cause of abnormal reaction of the patient, or of later complication, without mention of misadventure at the time of the procedure; J44.9 Chronic obstructive pulmonary disease, unspecified; I25.10 Atherosclerotic heart disease of native coronary artery without angina pectoris
CPT/HCPCS: 36415; 71045-TC-FY; 73630-TC-LT; 75635-TC; 76000-TC-FY; 80048; 80053; 80061; 80076; 81003; 82150; 82378; 82533; 82570; 83036; 83690; 83735; 84156; 84439; 84443; 85025; 85027; 85610; 85730; 86850; 86900; 86901; 87040; 87086; 87517; 93005; 93010; 94640; 94760; 99285-25; C9803-CS; J1644; Q9967; U0003; U0005